=== PATIENT | male | born 1945 | race Caucasian/White ===

== ENCOUNTER → 2017-04-16 15:59 | Outpatient (REF) | payer MEDICARE, OTHER, SELFPAY ==
[2017-04-16 16:12] LABS: Basophils % 0.2 % (0.1-2.0); Eosinophils % 0.2 % (0.1-12.0); Hematocrit 52.4 % (42.0-52.0); Hemoglobin 17.6 g/dL (14.1-18.0); Lymphocytes # 0.9 K/mm3 (0.7-4.5); Mean Corpuscular HGB Conc 33.6 g/dL (31.8-35.4); Mean Corpuscular Volume 92.1 fl (80-94); Mean Platelet Volume 9.4 fl (7.4-10.4); Monocytes # 0.5 K/mm3 (0.1-1.0); Monocytes % 3.6 % (1.7-9.3); Neutrophils # 12.9 K/mm3 (1.8-7.8); Platelet Count 188 K/mm3 (142-424); Red Blood Count 5.68 M/mm3 (4.60-6.20); Red Cell Distribution Width 12.8 % (11.5-17.5); White Blood Count 14.4 K/mm3 (4.8-10.8)
[2017-04-16 16:15] LABS: MANUAL DIFFERENTIAL MANUAL DIFFERENTIAL (MANUAL DIFF)
[2017-04-16 17:34] LABS: Erythrocyte Sedimentation Rate 3 mm/hr (0-20)
[2017-04-16 18:01] LABS: Lymphocytes % 5 % (10-50); Monocytes % 2 % (2-9); Neutrophils % 91 % (42-76); Platelet Estimate Normal; Total Cells Counted 100
[2017-04-16 18:02] LABS: RBC Morphology Normal
[2017-04-16 18:35] LABS: Alanine Aminotransferase 66 U/L (12-78); Albumin Level 4.3 gm/dL (3.4-5.0); Albumin/Globulin Ratio 1.2 (1.1-1.8); Alkaline Phosphatase 63 U/L (46-116); Anion Gap 19.6 mEq/L (5-15); Aspartate Amino Transferase 36 U/L (15-37); Bilirubin,Total 0.8 mg/dL (0.2-1.0); Blood Urea Nitrogen 24 mg/dL (7-18); Calcium 9.6 mg/dL (8.5-10.1); Carbon Dioxide 23 mmol/L (21.0-32.0); Chloride 103 mmol/L (98-107); Creatinine,Serum 1.33 mg/dL (0.70-1.30); Estimated Glomerular Filt Rate 53 ml/min (>60); GFR (African American) 64 ML/MIN (>60); Globulin 3.5 gm/dl (1.3-3.2); Glucose 192 mg/dL (74-106); Potassium 4.6 mmoL/L (3.5-5.1); Sodium 141 mmol/L (136-145); Total Protein,Serum 7.8 gm/dL (6.4-8.2)
[2017-04-18 12:35] LABS: Folate >20.0 ng/mL (>3.0); Vitamin B12 750 pg/mL (232-1245)
== END ==
LOC: LAB 15:59
PROVIDERS: Visit Provider Internal Medicine
DX: G31.84 Mild cognitive impairment of uncertain or unknown etiology (principal); M54.2 Cervicalgia; H83.09 Labyrinthitis, unspecified ear
CPT/HCPCS: 80053; 82607; 82746; 84443; 85007; 85025; 85651

== ENCOUNTER → 2017-04-18 13:12 | Outpatient (CLI) | payer MEDICARE, OTHER, SELFPAY ==
--- NOTE | 2017-04-18 13:18 | MR_ITS ---
MR head/brain wo/w con HISTORY: Headaches, vertigo, memory loss ITS.REASON: VERTIGO, HEADACHES, MEMORY LOSS ORDERING PHYSICIAN: Addy Lara PATIENT AGE: 71 years COMPARISON: None TECHNIQUE: Standard multiplanar multiecho sequences are performed without and with gadolinium enhancement contrast.. Thin section pre and post coronal and axial T1-weighted images are also obtained for evaluation of the acoustic foramina FINDINGS: No midline shift or mass effect is evident. There is mild atrophy with scattered periventricular and subcortical T2 white matter hyperintensities likely related to ischemic gliotic change from microvascular disease. No enhancing lesions are apparent. No evidence of acute infarction. The cerebellopontine angles have an unremarkable appearance. No mass or enhancing lesion is evident. The nerve VII and VIII complexes are unremarkable. No mastoid effusion or sinus air-fluid level. IMPRESSION: 1. No acute intracranial findings. 2. No evidence of cerebellopontine angle mass. 3. Senescent changes with atrophy and chronic right hepatic gliotic change IMPRESSION:
--- NOTE | 2017-04-18 14:50 | HMH.ITSHM ---
LISINOPRIL 40MG AMLODIPINE 10MG MELOXICAM 15MG ALENDRONATE 40MG SPIRONOLACTONE 25MG
== END ==
PROVIDERS: PCP Internal Medicine; Visit Provider Internal Medicine
DX: R42 Dizziness and giddiness (principal); R51 Headache; R41.3 Other amnesia
CPT/HCPCS: 70553; A9576

== ENCOUNTER → 2017-07-15 10:24 | Outpatient (CLI) | payer MEDICARE, OTHER, SELFPAY ==
[2017-07-15 10:46] LABS: Basophils % 0.5 % (0.1-2.0); Eosinophils # 0.1 K/mm3 (0.0-0.4); Eosinophils % 1.1 % (0.1-12.0); Hematocrit 48.6 % (42.0-52.0); Hemoglobin 16.1 g/dL (14.1-18.0); Lymphocytes % 22.5 K/mm3 (10-50); Mean Corpuscular HGB Conc 33.1 g/dL (31.8-35.4); Mean Corpuscular Hemoglobin 31.4 pg (27.0-31.2); Mean Corpuscular Volume 94.9 fl (80-94); Mean Platelet Volume 8.3 fl (7.4-10.4); Monocytes # 0.8 K/mm3 (0.1-1.0); Monocytes % 8.5 % (1.7-9.3); Neutrophils % 67.3 % (37.0-80.0); Platelet Count 180 K/mm3 (142-424); Red Blood Count 5.12 M/mm3 (4.60-6.20); Red Cell Distribution Width 12.7 % (11.5-17.5); White Blood Count 8.9 K/mm3 (4.8-10.8)
[2017-07-15 11:29] LABS: Alanine Aminotransferase 27 U/L (12-78); Albumin Level 4.1 gm/dL (3.4-5.0); Albumin/Globulin Ratio 1.2 (1.1-1.8); Alkaline Phosphatase 49 U/L (46-116); Anion Gap 10.6 mEq/L (5-15); Aspartate Amino Transferase 16 U/L (15-37); Bilirubin,Total 0.6 mg/dL (0.2-1.0); Blood Urea Nitrogen 30 mg/dL (7-18); Calcium 9.7 mg/dL (8.5-10.1); Carbon Dioxide 29 mmol/L (21.0-32.0); Chloride 108 mmol/L (98-107); Estimated Glomerular Filt Rate 65 ml/min (>60); GFR (African American) 79 ML/MIN (>60); Globulin 3.5 gm/dl (1.3-3.2); Glucose 123 mg/dL (74-106); Phosphorous 3.1 mg/dL (2.4-4.9); Potassium 4.6 mmoL/L (3.5-5.1); Sodium 143 mmol/L (136-145); Total Protein,Serum 7.6 gm/dL (6.4-8.2)
== END ==
PROVIDERS: Visit Provider Internal Medicine
DX: M43.22 Fusion of spine, cervical region (principal); I10 Essential (primary) hypertension; D75.1 Secondary polycythemia
CPT/HCPCS: 36415; 80053; 84100; 85025

== ENCOUNTER 2017-08-21 15:15 | Outpatient (RCR) | payer MEDICARE, OTHER, SELFPAY | END 2017-08-21 15:16 | disposition home or self-care (01) | LOC: PT 15:15 | PROVIDERS: PCP Internal Medicine; Visit Provider Orthopaedic Surgery | DX: S52.532S Colles' fracture of left radius, sequela (principal) ==

== ENCOUNTER → 2017-08-23 11:08 | Outpatient (CLI) | payer MEDICARE, OTHER, SELFPAY ==
[2017-08-23 11:41] LABS: Basophils # 0.1 K/mm3 (0-0.2); Eosinophils # 0.2 K/mm3 (0.0-0.4); Eosinophils % 2.4 % (0.1-12.0); Lymphocytes % 22.2 K/mm3 (10-50); Mean Corpuscular Hemoglobin 30.6 pg (27.0-31.2); Mean Corpuscular Volume 95.6 fl (80-94); Monocytes # 0.9 K/mm3 (0.1-1.0); Neutrophils # 5.8 K/mm3 (1.8-7.8); Neutrophils % 64.4 % (37.0-80.0); Platelet Count 195 K/mm3 (142-424); Red Blood Count 5.23 M/mm3 (4.60-6.20); Red Cell Distribution Width 12.8 % (11.5-17.5); White Blood Count 9.1 K/mm3 (4.8-10.8)
[2017-08-23 11:50] LABS: Anion Gap 15.2 mEq/L (5-15); Blood Urea Nitrogen 44 mg/dL (7-18); Calcium 9.6 mg/dL (8.5-10.1); Carbon Dioxide 25 mmol/L (21.0-32.0); Chloride 103 mmol/L (98-107); Creatinine,Serum 1.79 mg/dL (0.70-1.30); Estimated Glomerular Filt Rate 37 ml/min (>60); GFR (African American) 45 ML/MIN (>60); Glucose 109 mg/dL (74-106); Potassium 5.2 mmoL/L (3.5-5.1); Sodium 138 mmol/L (136-145)
== END ==
PROVIDERS: Visit Provider Orthopaedic Surgery
DX: Z01.818 Encounter for other preprocedural examination (principal); S52.532S Colles' fracture of left radius, sequela
CPT/HCPCS: 36415; 80048; 85025; 93005

== ENCOUNTER → 2017-09-09 09:11 | Outpatient (CLI) | payer MEDICARE, OTHER, SELFPAY ==
--- NOTE | 2017-09-09 09:21 | XR_ITS ---
XR wrist LT min 3V HISTORY follow-up ORIF left wrist ITS.REASON: 2 weeks post op LT wrist ORDERING PHYSICIAN: Karan Rendon MD PATIENT AGE: 72 years Comparison: 08/26/2017 FINDINGS: External fixator device remains in place with good alignment of the comminuted distal radial fracture and ulnar styloid process fracture. The fracture lines are somewhat less apparent suggesting healing. Incidental note made of a small cortical curvilinear fracture at the insertion site of the external fixator at the mid to distal radial region along the ulnar aspect of the cortex. IMPRESSION: Healing Colles' fracture status post external fixation
== END ==
PROVIDERS: PCP Internal Medicine; Visit Provider Orthopaedic Surgery
DX: Z47.89 Encounter for other orthopedic aftercare (principal); S52.532A Colles' fracture of left radius, initial encounter for closed fracture; S62.102A Fracture of unspecified carpal bone, left wrist, initial encounter for closed fracture
CPT/HCPCS: 73110

== ENCOUNTER → 2017-09-24 12:38 | Outpatient (CLI) | payer MEDICARE, OTHER, SELFPAY ==
--- NOTE | 2017-09-24 12:41 | XR_ITS ---
XR wrist LT min 3V HISTORY: ITS.REASON: 4 wks post op LT wrist closed reduction/ext. fixat ORDERING PHYSICIAN: Karan Rendon MD PATIENT AGE: 72 years COMPARISON: Left wrist with external fixator device in place 09/09/2017 FINDINGS: The external fixator device is again seen stabilizing the distal radial fracture. There is stable volar angulation of the distal radial fracture fragment. The unfused ulnar styloid fracture fragment is stable and unchanged in position. The carpal bones all appear intact. IMPRESSION: External fixation Colles' type fracture distal radius and ulnar styloid
== END ==
PROVIDERS: PCP Internal Medicine; Visit Provider Orthopaedic Surgery
DX: S52.532A Colles' fracture of left radius, initial encounter for closed fracture (principal); S62.102A Fracture of unspecified carpal bone, left wrist, initial encounter for closed fracture
CPT/HCPCS: 73110

== ENCOUNTER → 2017-10-08 13:57 | Outpatient (CLI) | payer MEDICARE, OTHER, SELFPAY ==
--- NOTE | 2017-10-08 14:00 | XR_ITS ---
XR wrist LT min 3V HISTORY follow-up fracture ITS.REASON: S/P LT WRIST CLOSED REDUC. EXTERNAL FIXATION ORDERING PHYSICIAN: Karan Rendon MD PATIENT AGE: 72 years Comparison: 09/24/2017 FINDINGS: External fixator device remains in place unchanged. The distal radial fracture line is somewhat less apparent suggesting healing. There remains good alignment with no significant displacement. No change in the nondisplaced fracture of the ulnar styloid process. IMPRESSION: External fixator remains in place with healing distal radial fracture and no change in the ulnar styloid process fracture
== END ==
PROVIDERS: PCP Internal Medicine; Visit Provider Orthopaedic Surgery
DX: Z47.89 Encounter for other orthopedic aftercare (principal)
CPT/HCPCS: 73110

== ENCOUNTER → 2017-10-21 10:08 | Outpatient (CLI) | payer MEDICARE, OTHER, SELFPAY ==
[2017-10-21 10:53] LABS: Alanine Aminotransferase 24 U/L (12-78); Albumin Level 4.2 gm/dL (3.4-5.0); Albumin/Globulin Ratio 1.3 (1.1-1.8); Alkaline Phosphatase 57 U/L (46-116); Anion Gap 12.7 mEq/L (5-15); Aspartate Amino Transferase 13 U/L (15-37); Bilirubin,Total 0.3 mg/dL (0.2-1.0); Blood Urea Nitrogen 48 mg/dL (7-18); Calcium 9.5 mg/dL (8.5-10.1); Carbon Dioxide 27 mmol/L (21.0-32.0); Chloride 110 mmol/L (98-107); Creatinine,Serum 1.98 mg/dL (0.70-1.30); Estimated Glomerular Filt Rate 33 ml/min (>60); GFR (African American) 40 ML/MIN (>60); Globulin 3.3 gm/dl (1.3-3.2); Glucose 86 mg/dL (74-106); Potassium 5.7 mmoL/L (3.5-5.1); Sodium 144 mmol/L (136-145); Total Protein,Serum 7.5 gm/dL (6.4-8.2)
[2017-10-22 16:06] LABS: Folate >20.0 ng/mL (>3.0); Rapid Plasma Reagin Ab Titer Non Reactive (NonRea<1:1); Vitamin B12 900 pg/mL (232-1245)
== END ==
PROVIDERS: PCP Internal Medicine; Visit Provider Specialist
DX: G93.40 Encephalopathy, unspecified (principal); R42 Dizziness and giddiness; R41.3 Other amnesia; M88.9 Osteitis deformans of unspecified bone; F03.90 Unspecified dementia, unspecified severity, without behavioral disturbance, psychotic disturbance, mood disturbance, and anxiety
CPT/HCPCS: 36415; 80053; 82607; 82746; 86592

== ENCOUNTER → 2017-10-24 09:29 | Outpatient (CLI) | payer MEDICARE, OTHER, SELFPAY ==
--- NOTE | 2017-10-24 10:15 | CI_ITS ---
Cerebrovascular Exam Indications: 780.4 Dizziness and giddiness. IMPRESSIONS 1. The bilateral vertebral arteries are patent with normal antegrade flow. 2. Study suggests less than 20% stenosis involving the right internal carotid artery and the left internal carotid artery. History: Memory loss. Risk factors: Hypertension. Carotid duplex study. Complete study and Doppler flow study including spectral analysis, color and reyna scale imaging. Height: Height: 185.4cm. Height: 73in. Weight: Weight: 86.6kg. Weight: 190.6lb. Body mass index: BMI: 25.2kg/m^2. Body surface area: BSA: 2.12m^2. Location: Vascular laboratory. Patient status: Outpatient. Tables: Arterial flow: + +--------+--------+ Location V sys V ed + +--------+--------+ Right CCA - proximal 73.1cm/s 18.1cm/s + +--------+--------+ Right CCA - distal 66cm/s 20.4cm/s + +--------+--------+ Right ECA 75.4cm/s -------- + +--------+--------+ Right ICA - proximal 34.9cm/s 9.8cm/s + +--------+--------+ Right ICA - mid 44.2cm/s 16.2cm/s + +--------+--------+ Right ICA - distal 65.8cm/s 24.6cm/s + +--------+--------+ Right vertebral 33.4cm/s -------- + +--------+--------+ Left CCA - proximal 68.8cm/s 18.7cm/s + +--------+--------+ Left CCA - distal 60.9cm/s 15.2cm/s + +--------+--------+ Left ECA 77.6cm/s -------- + +--------+--------+ Left ICA - proximal 43.2cm/s 16.7cm/s + +--------+--------+ Left ICA - mid 45.2cm/s 16.7cm/s + +--------+--------+ Left ICA - distal 55.5cm/s 19.6cm/s + +--------+--------+ Left vertebral 33.9cm/s -------- + +--------+--------+ Velocity ratios: + + + + + + Right, V sys Right, V ed Left, V sys Left, V ed + + + + + + Max ICA/dist CCA 1 1.21 0.91 1.29 + + + + + + (Report amended ) Electronically signed by: Montana Dyer [id number]
== END ==
PROVIDERS: PCP Internal Medicine; Visit Provider Specialist
DX: R42 Dizziness and giddiness (principal); R41.3 Other amnesia; G93.40 Encephalopathy, unspecified
CPT/HCPCS: 93880

== ENCOUNTER → 2017-11-07 12:52 | Outpatient (CLI) | payer MEDICARE, OTHER, SELFPAY ==
--- NOTE | 2017-11-07 12:56 | XR_ITS ---
XR wrist LT min 3V HISTORY follow-up fracture/closed reduction ITS.REASON: S/P LT wrist closed reduction/external fixation ORDERING PHYSICIAN: Karan Rendon MD PATIENT AGE: 72 years Comparison: 10/08/2017 FINDINGS: The external fixator has been removed. Healing fracture of the distal radius once again noted with good alignment. Lucencies from the external fixator noted in the radius and second metacarpal. Ununited ulnar styloid process fracture noted. IMPRESSION: Interval removal of the external fixator with healing distal radial fracture
== END ==
PROVIDERS: PCP Internal Medicine; Visit Provider Orthopaedic Surgery
DX: S52.532A Colles' fracture of left radius, initial encounter for closed fracture (principal)
CPT/HCPCS: 73110

== ENCOUNTER 2017-11-08 10:00 | Outpatient (RCR) | payer MEDICARE, OTHER, SELFPAY | END 2017-11-08 10:01 | disposition home or self-care (01) | LOC: PT 10:00 | PROVIDERS: PCP Internal Medicine; Visit Provider Specialist | DX: R42 Dizziness and giddiness (principal) | CPT/HCPCS: 97010; 97014; 97110; 97112; 97163; G0283 ==

== ENCOUNTER 2017-11-08 11:00 | Outpatient (RCR) | payer MEDICARE, OTHER, SELFPAY ==
--- NOTE | 2017-10-25 10:49 | HMH.OTOPEV ---
OT Inpatient Evaluation Rehab OT Outpatient Eval Start: 10/25/17 10:33 Freq: Status: Active Protocol: Document 10/25/17 10:34 TFRY (Rec: 10/25/17 10:48 TFRY [id number]) Electronically Signed By Jennifer Wylie, OT 10/25/17 10:34 Outpatient Therapy Subjective History Subjective History THIS IS A 72 YEAR OLD RIGHT HANDED MALE REFERRED TO OCCUPATIONAL THERAPY PATIENT IS S/P LEFT WRIST CLOSED REDUCTION, PINNING EXTERNAL FIXATOR. PATIENT STATES THAT HE FELL BACKWARDS ON August AND BROKE HIS WRIST. Chief Complaint Pain Stiff Symptom Type Ache Sharp Symptoms Relieved By Rest/Positioning Prescription Meds Symptoms Aggravated By Physical Activity Prior Functional Limitations None Current Functional Limitations Dressing Symptom Description Activity Dependent Level of pain today (0-10) 3 Pain scale - at its best (0-10) 1 Pain scale - at its worst (0-10) 6 Wrist/Hand Eval Palpation Tenderness/Visual Exam Wrist pain left tenderness wrist exam standard left Wrist/Hand Palpation Findings Tenderness Wrist Range of Motion Wrist Extension Active Range of Motion ( 32 degrees) Wrist Extension Passive Range of Motion 50 (degrees) Wrist Flexion Active Range of Motion ( 45 degrees) Wrist Flexion Passive Range of Motion ( 50 degrees) Wrist Radial Deviation Active Range of 20 Motion (degrees) Wrist Radial Deviation Passive Range of 20 Motion (degrees) Wrist Ulnar Deviation Active Range of 20 Motion (degrees) Wrist Ulnar Deviation Passive Range of 20 Motion (degrees) Forearm Supination Active Range of 30 Motion (degrees) Forearm Supination Passive Range of 35 Motion (degrees) Forearm Pronation Active Range of Motion WFL (degrees) Forearm Pronation Passive Range of WFL Motion (degrees) Wrist Manual Muscle Testing Right Wrist Extension Strength Grade 3+ Fair+ Wrist Flexion Strength Grade 3+ Fair+ Wrist Radial Deviation Strength Grade 3+ Fair+ Wrist Ulnar Deviation Strength Grade 3+ Fair+ Forearm Supination Strength Grade 3+ Fair+ Forearm Pronation Strength Grade 3+ Fair+ 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
== END 2017-11-08 11:05 | disposition home or self-care (01) ==
LOC: OT 11:00
PROVIDERS: PCP Internal Medicine; Visit Provider Orthopaedic Surgery
DX: S52.532A Colles' fracture of left radius, initial encounter for closed fracture (principal)
CPT/HCPCS: 97110; 97140; 97165

== ENCOUNTER → 2017-12-02 09:32 | Outpatient (CLI) | payer MEDICARE, OTHER, SELFPAY | PROVIDERS: PCP Internal Medicine; Visit Provider Specialist | DX: R41.3 Other amnesia (principal); G93.40 Encephalopathy, unspecified; R42 Dizziness and giddiness | CPT/HCPCS: 95819 ==

== ENCOUNTER → 2017-12-11 15:11 | Outpatient (CLI) | payer MEDICARE, OTHER, SELFPAY ==
[2017-12-11 15:31] LABS: Anion Gap 14.3 mEq/L (5-15); Blood Urea Nitrogen 56 mg/dL (7-18); Calcium 9.5 mg/dL (8.5-10.1); Carbon Dioxide 24 mmol/L (21.0-32.0); Chloride 107 mmol/L (98-107); Creatinine,Serum 1.83 mg/dL (0.70-1.30); Estimated Glomerular Filt Rate 36 ml/min (>60); GFR (African American) 44 ML/MIN (>60); Glucose 98 mg/dL (74-106); Potassium 5.3 mmoL/L (3.5-5.1); Sodium 140 mmol/L (136-145)
== END ==
PROVIDERS: PCP Internal Medicine; Visit Provider Internal Medicine
DX: I10 Essential (primary) hypertension (principal); E87.5 Hyperkalemia; R94.4 Abnormal results of kidney function studies
CPT/HCPCS: 36415; 80048

== ENCOUNTER → 2017-12-13 13:06 | Outpatient (CLI) | payer MEDICARE, OTHER, SELFPAY ==
--- NOTE | 2017-12-13 13:07 | MR_ITS ---
MR angio head wo con CLINICAL INDICATION: Vertigo, dizziness, headache ITS.REASON: pagets disease, encephalopathy, vertigo ORDERING PHYSICIAN: Hannah Peralta MD PATIENT AGE: 72 years Comparison: None TECHNIQUE: [id number] images obtained without contrast. FINDINGS: No aneurysm, arteriovenous malformation, or major intracranial occlusive process evident. IMPRESSION: Negative MRA of the brain
--- NOTE | 2017-12-13 13:07 | MR_ITS ---
MR cervical spine wo con, MR 3-d myelogram/MRCP HISTORY: Pagents disease. RT sided neck pain XRYS. Headache. Padgets disease ITS.REASON: evaluation for myelopathy ORDERING PHYSICIAN: Hannah Peralta MD PATIENT AGE: 72 years Comparison: X-RAY 08-28-2011 ct 05/14/2016 TECHNIQUE: Standard multiplanar multiecho sequences are performed without contrast. 3-D MIP and myelographic images are also rendered and reviewed FINDINGS: The patient has history of Padgets disease. There is fusion of the C5-T1 vertebral bodies. This is well demonstrated on older CT neck of 05/14/2016. There is kyphosis of the cervicothoracic junction. There is diffuse heterogeneous T1 and T2 slight hyperintensity of C5-T1 vertebral bodies with scattered areas of decreased signal intensity consistent with diffuse osteosclerosis as seen on the CT scan. This also involves the posterior elements. This would be better demonstrated with CT. No obvious bony hypertrophy at the craniocervical junction. C2-C3: Mild concentric bulging disc with mild right-sided foraminal narrowing from mild uncovertebral hypertrophy. C3-C4: Concentric bulging disc with endplate osteophytes as well as hypertrophic changes of the posterior elements at the lamina also with resultant severe canal stenosis of 6 mm. There is impingement upon the cord both anteriorly and posteriorly with mild flattening of the cord. There is increased linear T2 signal within the cord at and above this level for approximately 1 cm and may be due to an area of gliosis. There is moderate severe bilateral foraminal narrowing. C4-C5: Bulging disc with endplate hypertrophic change with degenerative disc disease with hypertrophy of posterior elements. There is canal stenosis at this level at 10 mm. There is severe bilateral foraminal narrowing right greater than left. C5 C6, C6-C7, C7-T1: Diffuse heterogeneous T1 and T2 signal consistent with diffuse involvement of patchy disease with bony hypertrophy and bony expansion with bilateral foraminal narrowing at all levels. Consider CT for more thorough evaluation of the bony involvement. Generalized motion artifact is also present at this region. IMPRESSION: 1. 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 Consider CT for more thorough evaluation. 2. C3-C4: Concentric bulging disc with endplate osteophytes as well as hypertrophic changes of the posterior elements at the lamina also with resultant SEVERE CANAL STENOSIS of 6 mm. There is impingement upon the cord both anteriorly and posteriorly with mild flattening of the cord. There is increased linear T2 signal within the cord at and above this level for approximately 1 cm and may be due to an area of gliosis. There is moderate/ severe bilateral foraminal narrowing. 3. C4-C5: Bulging disc with endplate hypertrophic change with degenerative disc disease with hypertrophy of posterior elements. There is canal stenosis at this level at 10 mm. There is severe bilateral foraminal narrowing right greater than left
== END ==
PROVIDERS: PCP Internal Medicine; Visit Provider Specialist
DX: G93.40 Encephalopathy, unspecified (principal); M88.9 Osteitis deformans of unspecified bone; R41.3 Other amnesia; R42 Dizziness and giddiness
CPT/HCPCS: 70544; 72141; 76376

== ENCOUNTER → 2017-12-17 12:33 | Outpatient (CLI) | payer MEDICARE, OTHER, SELFPAY ==
--- NOTE | 2017-12-17 12:44 | US_ITS ---
US kidney retroperitoneal comp HISTORY: ITS.REASON: RENAL INSUFFICIENCY ORDERING PHYSICIAN: Addy Lara PATIENT AGE: 72 years FINDINGS: RIGHT KIDNEY:Unremarkable. Normal size and echogenicity. No hydronephrosis Right kidney measures 10.5 x 5.2 x 6.3 cm LEFT KIDNEY:Unremarkable. No hydronephrosis. Normal size and echogenicity. Left kidney measures 10 x 5 x 6 cm and contains a 1 cm cyst along the upper pole. OTHER FINDINGS: No other pertinent findings IMPRESSION: 1 cm left renal cyst otherwise negative bilateral renal ultrasound
== END ==
PROVIDERS: PCP Internal Medicine; Visit Provider Internal Medicine
DX: N28.9 Disorder of kidney and ureter, unspecified (principal)
CPT/HCPCS: 76770

== ENCOUNTER → 2017-12-20 13:34 | Outpatient (CLI) | payer MEDICARE, OTHER, SELFPAY ==
[2017-12-20 14:26] LABS: Anion Gap 10.9 mEq/L (5-15); Blood Urea Nitrogen 30 mg/dL (7-18); Carbon Dioxide 27 mmol/L (21.0-32.0); Chloride 107 mmol/L (98-107); Creatinine,Serum 1.21 mg/dL (0.70-1.30); Estimated Glomerular Filt Rate 59 ml/min (>60); GFR (African American) 71 ML/MIN (>60); Glucose 101 mg/dL (74-106); Potassium 4.9 mmoL/L (3.5-5.1); Sodium 140 mmol/L (136-145)
[2017-12-20 14:26] LABS: Creatinine,Serum 1.26 mg/dL (0.70-1.30)
[2017-12-20 14:30] LABS: Total Protein,Urine Random 6.6 mg/dL (0.0-11.9)
[2017-12-20 14:32] LABS: Total Protein 24 Hour,Urine 86 mg/24 hr (40-90); Total Volume,Urine 1300 mL (250-2400)
[2017-12-20 14:39] LABS: Creatinine,Urine Random 87 mg/dL (20-320); Patient Height,Urine 74 inches; Patient Weight,Urine 194 lbs
[2017-12-20 14:51] LABS: Collection Time,Urine 24 hours; Creatinine 24 Hour,Urine 1131 mg/24hr (630-2500); Creatinine Clearance Urine 50.4 mL/min (85-125); Total Volume,Urine 1300 mL (250-2400)
== END ==
PROVIDERS: PCP Internal Medicine; Visit Provider Internal Medicine
DX: E87.5 Hyperkalemia (principal); R94.4 Abnormal results of kidney function studies; N28.9 Disorder of kidney and ureter, unspecified
CPT/HCPCS: 36415; 80048; 82575; 84155

== ENCOUNTER → 2018-01-14 09:33 | Outpatient (CLI) | payer MEDICARE, OTHER, SELFPAY ==
[2018-01-14 10:37] LABS: Hematocrit 46.8 % (42.0-52.0)
[2018-01-14 11:51] LABS: Thyroid Stimulating Hormone 2.34 uIU/ml (0.358-3.740)
[2018-01-14 11:51] LABS: Alanine Aminotransferase 49 U/L (12-78); Albumin Level 3.8 gm/dL (3.4-5.0); Alkaline Phosphatase 60 U/L (46-116); Anion Gap 13.4 mEq/L (5-15); Aspartate Amino Transferase 16 U/L (15-37); Bilirubin,Total 0.5 mg/dL (0.2-1.0); Blood Urea Nitrogen 31 mg/dL (7-18); Calcium 9.1 mg/dL (8.5-10.1); Carbon Dioxide 28 mmol/L (21.0-32.0); Chloride 106 mmol/L (98-107); Creatinine,Serum 1.25 mg/dL (0.70-1.30); Estimated Glomerular Filt Rate 56 ml/min (>60); GFR (African American) 68 ML/MIN (>60); Globulin 3.7 gm/dl (1.3-3.2); Glucose 96 mg/dL (74-106); Phosphorous 3.7 mg/dL (2.4-4.9); Potassium 4.4 mmoL/L (3.5-5.1); Prostate Specific Ag Screen 2.8 ng/mL (0.0-4.0); Sodium 143 mmol/L (136-145); Total Protein,Serum 7.5 gm/dL (6.4-8.2)
== END ==
PROVIDERS: Internal Medicine; Visit Provider Specialist
DX: G93.40 Encephalopathy, unspecified (principal); M47.12 Other spondylosis with myelopathy, cervical region; M47.22 Other spondylosis with radiculopathy, cervical region; M88.9 Osteitis deformans of unspecified bone; R41.3 Other amnesia; N28.9 Disorder of kidney and ureter, unspecified; Z12.5 Encounter for screening for malignant neoplasm of prostate
CPT/HCPCS: 36415; 80053; 84100; 84443; 85014; G0103

== ENCOUNTER → 2018-01-14 09:47 | Outpatient (POV) | payer MEDICARE, OTHER, SELFPAY | PROVIDERS: Visit Provider Otolaryngology | DX: Z00.00 Encounter for general adult medical examination without abnormal findings (principal) ==

== ENCOUNTER → 2018-01-15 13:16 | Outpatient (CLI) | payer MEDICARE, OTHER, SELFPAY ==
--- NOTE | 2018-01-15 13:17 | CT_ITS ---
CT CERVICAL SPINE WITHOUT CONTRAST CT RECONSTRUCTIONS HISTORY:Neck pain, Paget disease ORDERING PHYSICIAN: Hannah Peralta MD PATIENT AGE: 72 years COMPARISON: 05/14/2016 Technique: All CT scans at the facility use one or more dose reduction, viz: automated exposure control, ma/kV adjustment per patient size (including targeted exams where dose is matched to indication, i.e. head), or iterative reconstruction technique PROCEDURE: Axial spiral CT scanning performed of the cervical spine beginning at the base of the skull and continuing to the upper T-spine. 3-D multiplanar reconstruction with 3-D manipulation of volumetric data set in image rendering was completed by the radiologist and/or technologist with the supervision of the radiologist on independent workstation. FINDINGS: C1-C2: Unremarkable. C2-C3: Degenerative disc disease with minimal retrolisthesis of C2 of 2 to 3 mm with mild bilateral foraminal narrowing. C3-C4: Degenerative disc disease with facet and ligamentum flavum hypertrophy and moderate bilateral foraminal narrowing. Previous MRI showed canal stenosis at C3-C4 and C4-C5. This is better demonstrated on the MRI. C4-C5 C5-C6 and C6-C7 and C7-T1 coarse irregular walled in appearance of the bone throughout these levels within irregular osseous pattern as described previously on 05/14/2016 not significantly changed and could be due to fibrous dysplasia or active disease. There is kyphosis of the cervicothoracic junction similar to the previous exam. The foramina are widely patent at these areas without evidence of canal stenosis. There is fusion of the vertebral bodies from see 5 to T1. Degenerative disc disease T1-T2. No acute finding in the lung apices. No prevertebral soft tissue swelling evident. The uvula is somewhat prominent and slightly eccentric toward the left. IMPRESSION: 1. Abnormal appearance of the cervical spine C5 through T1 as described above which may be due to a Paget disease or fibrous dysplasia. 2. Cervical spondylosis of the upper cervical spine as detailed above
== END ==
PROVIDERS: PCP Specialist; Visit Provider Specialist
DX: G93.40 Encephalopathy, unspecified (principal); M47.12 Other spondylosis with myelopathy, cervical region; M47.22 Other spondylosis with radiculopathy, cervical region; M88.9 Osteitis deformans of unspecified bone
CPT/HCPCS: 72125

== ENCOUNTER → 2018-01-20 12:52 | Outpatient (CLI) | payer MEDICARE, OTHER, SELFPAY | PROVIDERS: PCP Internal Medicine; Visit Provider Internal Medicine | DX: G47.30 Sleep apnea, unspecified (principal); G47.10 Hypersomnia, unspecified; R06.83 Snoring; I10 Essential (primary) hypertension; E66.9 Obesity, unspecified | CPT/HCPCS: G0399 ==

== ENCOUNTER → 2018-02-27 14:26 | Outpatient (POV) | payer MEDICARE, OTHER, SELFPAY | PROVIDERS: Visit Provider Neurological Surgery | DX: Z00.00 Encounter for general adult medical examination without abnormal findings (principal) ==

== ENCOUNTER 2018-04-04 14:00 | Outpatient (RCR) | payer MEDICARE, OTHER, SELFPAY | END 2018-04-04 14:05 | disposition home or self-care (01) | LOC: PT 14:00 | PROVIDERS: Visit Provider Neurological Surgery | DX: M54.2 Cervicalgia (principal); M25.511 Pain in right shoulder | CPT/HCPCS: 97010; 97012; 97014; 97035; 97110; 97140; 97163; G0283 ==

== ENCOUNTER → 2018-04-16 09:46 | Outpatient (CLI) | payer MEDICARE, OTHER, SELFPAY ==
[2018-04-16 10:24] LABS: Basophils # 0.1 K/mm3 (0-0.2); Basophils % 0.8 % (0.1-2.0); Eosinophils # 0.2 K/mm3 (0.0-0.4); Eosinophils % 3.1 % (0.1-12.0); Hematocrit 47.3 % (42.0-52.0); Lymphocytes # 2.2 K/mm3 (0.7-4.5); Lymphocytes % 33.5 % (10-50); Mean Corpuscular HGB Conc 31.6 g/dL (31.8-35.4); Mean Corpuscular Hemoglobin 29.6 pg (27.0-31.2); Mean Corpuscular Volume 93.6 fl (80-94); Mean Platelet Volume 9.4 fl (7.4-10.4); Monocytes # 0.6 K/mm3 (0.1-1.0); Monocytes % 8.8 % (1.7-9.3); Neutrophils # 3.6 K/mm3 (1.8-7.8); Neutrophils % 53.7 % (37.0-80.0); Platelet Count 165 K/mm3 (142-424); Red Blood Count 5.06 M/mm3 (4.60-6.20); Red Cell Distribution Width 13.8 % (11.5-17.5); White Blood Count 6.7 K/mm3 (4.8-10.8)
[2018-04-16 10:53] LABS: Alanine Aminotransferase 38 U/L (12-78); Albumin Level 4.2 gm/dL (3.4-5.0); Albumin/Globulin Ratio 1.2 (1.1-1.8); Alkaline Phosphatase 54 U/L (46-116); Aspartate Amino Transferase 18 U/L (15-37); Bilirubin,Total 0.6 mg/dL (0.2-1.0); Blood Urea Nitrogen 34 mg/dL (7-18); Calcium 9.5 mg/dL (8.5-10.1); Carbon Dioxide 28 mmol/L (21.0-32.0); Chloride 103 mmol/L (98-107); Creatinine,Serum 1.46 mg/dL (0.70-1.30); Estimated Glomerular Filt Rate 47 ml/min (>60); GFR (African American) 57 ML/MIN (>60); Globulin 3.6 gm/dl (1.3-3.2); Glucose 114 mg/dL (74-106); Phosphorous 3.8 mg/dL (2.4-4.9); Sodium 141 mmol/L (136-145); Total Protein,Serum 7.8 gm/dL (6.4-8.2)
== END ==
PROVIDERS: Visit Provider Internal Medicine
DX: I10 Essential (primary) hypertension (principal); M54.2 Cervicalgia; M88.1 Osteitis deformans of vertebrae; M15.0 Primary generalized (osteo)arthritis; D75.1 Secondary polycythemia; D69.6 Thrombocytopenia, unspecified
CPT/HCPCS: 36415; 80053; 84100; 85025

== ENCOUNTER → 2018-05-27 12:49 | Outpatient (POV) | payer MEDICARE, OTHER, SELFPAY | PROVIDERS: Visit Provider Dermatology | DX: Z00.00 Encounter for general adult medical examination without abnormal findings (principal) ==

== ENCOUNTER → 2018-06-17 13:13 | Outpatient (POV) | payer MEDICARE, OTHER, SELFPAY | PROVIDERS: Visit Provider Dermatology | DX: Z00.00 Encounter for general adult medical examination without abnormal findings (principal) ==

== ENCOUNTER → 2018-06-20 13:47 | Outpatient (CLI) | payer MEDICARE, OTHER, SELFPAY | PROVIDERS: PCP Internal Medicine; Visit Provider Specialist | DX: G47.33 Obstructive sleep apnea (adult) (pediatric) (principal) | CPT/HCPCS: 94762 ==

== ENCOUNTER 2018-07-30 13:00 | Outpatient (RCR) | payer MEDICARE, OTHER, SELFPAY ==
--- NOTE | 2018-06-05 15:28 | HMH.PTOPEV ---
PT Outpatient Evaluation Rehab PT Outpatient Evaluation Start: 06/05/18 15:10 Freq: Status: Active Protocol: Document 06/05/18 15:10 TERRAJOSE (Rec: 06/05/18 15:28 TERRAJOSE [id number]) Electronically Signed By Laith Walker, PT 06/05/18 15:10 Outpatient Therapy Subjective History Subjective History Patient is a 73 year old male presenting to outpatient PT with reports of chronic, severe cervical spine with RUE radicular symptoms to C 6,7,8 dermatomes. Symptoms started approx 20 years ago of insidious onset. Diagnostics indicate fusion of C6,7 and T1 vertebrae. Pt had a previous episode of PT that provided some relief, specifically dry needling and traction. He has continued with his initial HEP. Pt reports neck pain radiates to R upper trap and down lateral aspect of humerus . Pt also report hx of chronic back pain and arthritis. Chief Complaint Pain Spasms Stiff Clicks Paresthesia Weakness Decreased Automatic Paint Sprayer Operator Strength Symptom Type Ache Dull Numbness Tingling Symptoms Relieved By Heat Symptoms Aggravated By Physical Activity Prior Functional Limitations Reaching Lifting Housework Dressing Desk Work/Reading Driving Sleeping Recreation Activity Current Functional Limitations Reaching Lifting Housework Dressing Desk Work/Reading Driving Sleeping Recreation Activity Symptom Description Constant but Variable Level of pain today (0-10) 5 Pain scale - at its best (0-10) 2 Pain scale - at its worst (0-10)
== END 2018-07-30 13:05 | disposition home or self-care (01) ==
LOC: PT 13:00
PROVIDERS: Visit Provider Internal Medicine
DX: M54.2 Cervicalgia (principal)
CPT/HCPCS: 97010; 97012; 97014; 97035; 97110; 97140; 97163; G0283

== ENCOUNTER → 2018-08-06 14:20 | Outpatient (CLI) | payer MEDICARE, OTHER, SELFPAY ==
--- NOTE | 2018-08-06 14:27 | XR_ITS ---
XR shoulder RT min 2V HISTORY: ITS.REASON: RT SHOULDER PAIN ORDERING PHYSICIAN: Addy Lara PATIENT AGE: 73 years Comparison: None FINDINGS: There are mild osteoarthritic changes of the acromioclavicular joint and glenohumeral joint. No acute fracture or dislocation. No lytic or blastic change. There is mild subacromial stenosis. 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
== END ==
PROVIDERS: PCP Internal Medicine; Visit Provider Internal Medicine
DX: M25.511 Pain in right shoulder (principal)
CPT/HCPCS: 73030

== ENCOUNTER → 2018-08-19 14:12 | Outpatient (POV) | payer MEDICARE, OTHER, SELFPAY ==
[2018-08-19 16:30] LABS: Anion Gap 14.3 mEq/L (5-15); Blood Urea Nitrogen 30 mg/dL (7-18); Calcium 9.7 mg/dL (8.5-10.1); Carbon Dioxide 29 mmol/L (21.0-32.0); Chloride 103 mmol/L (98-107); Creatinine,Serum 1.28 mg/dL (0.70-1.30); Estimated Glomerular Filt Rate 55 ml/min (>60); GFR (African American) 66 ML/MIN (>60); Glucose 130 mg/dL (74-106); Magnesium 2.1 mg/dL (1.4-2.2); Potassium 5.3 mmoL/L (3.5-5.1); Sodium 141 mmol/L (136-145)
== END ==
PROVIDERS: Internal Medicine; Visit Provider Dermatology
DX: Z79.899 Other long term (current) drug therapy (principal)
CPT/HCPCS: 36415; 80048; 83735

== ENCOUNTER → 2018-08-21 15:07 | Outpatient (CLI) | payer MEDICARE, OTHER, SELFPAY ==
--- NOTE | 2018-08-21 15:51 | MR_ITS ---
MR shoulder RT wo con HISTORY: Right shoulder pain, limited range of motion. Unable to raise right arm ITS.REASON: RT SHOULDER PAIN, POOR RANGE OF MOTION ORDERING PHYSICIAN: Addy Lara PATIENT AGE: 73 years Comparison: 08/06/2018. TECHNIQUE: Standard multiplanar multiecho sequences are performed without contrast. FINDINGS: The infraspinatus tendon is intact. There is tendinopathy/tendinosis of the supraspinatus tendon with increased T2 signal and thickening. At the posterior aspect of the supraspinatus tendon there does appear to be some retracted fibers at the area of increased T2 signal consistent with a least a partial intrasubstance tear. There is some slight increased T2 signal the humeral head at this region. The supraspinatus muscle is not retracted. There is mild subacromial stenosis with mild impingement upon the supraspinatus tendon with subacromial space measuring 5 mm. The subscapularis and teres minor tendons are intact. No obvious labral tear. Bicipital tendon is in place. There is a small amount of fluid in the subcoracoid region some of which appears loculated. Small amount of fluid is present in the shoulder joint. No fracture or dislocation. Small cystic areas present in the proximal humerus at 4 mm. IMPRESSION: 1. At least a partial tear of the supraspinatus tendon distally and posteriorly some minimal retraction of the tendinous fibers at this region. Cannot exclude possibility of a full-thickness tear at this area. A complete tear with muscle retraction is not apparent. 2. Mild subacromial stenosis. 3. Subcoracoid bursitis
== END ==
PROVIDERS: PCP Internal Medicine; Visit Provider Internal Medicine
DX: M25.511 Pain in right shoulder (principal); M25.611 Stiffness of right shoulder, not elsewhere classified
CPT/HCPCS: 73221

== ENCOUNTER → 2018-08-28 11:02 | Outpatient (CLI) | payer MEDICARE, OTHER, SELFPAY ==
--- NOTE | 2018-08-28 11:04 | MR_ITS ---
MR lumbar spine wo con, MR 3-d myelogram/MRCP HISTORY: LBP. Muscle spams bilateral legs, X3wks. ITS.REASON: LOW BACK PAIN ORDERING PHYSICIAN: Addy Lara PATIENT AGE: 73 years Comparison: None TECHNIQUE: Standard multiplanar multiecho sequences are performed without contrast. 3-D MIP and myelographic images are also rendered and reviewed FINDINGS: Normal alignment. The spinal cord ends at the L1-L2 level. T12-L1: Unremarkable. L1-L2: Schmorl's nodes are present at this level with minimal right paracentral disc protrusion. L2-L3: Bulging disc with degenerative disc disease along with facet and ligamentum flavum hypertrophy with moderate bilateral lateral recess and foraminal narrowing. There is borderline canal stenosis. L3-L4: Mild concentric bulging disc along with moderate facet and ligamentum flavum hypertrophy with moderate bilateral lateral recess narrowing slightly greater on the right along with moderate bilateral foraminal narrowing. L4-L5: Mild concentric bulging disc along with facet and ligamentum flavum hypertrophy with moderate bilateral foraminal narrowing. L5-S1: Degenerative disc disease with bulging disc with facet and ligamentum flavum hypertrophy with moderate bilateral foraminal narrowing. No disc herniation. IMPRESSION: There is multilevel lumbar spondylosis with multilevel degenerative disc disease along with facet and ligamentum hypertrophy with bilateral lateral recess and foraminal narrowing. PLEASE SEE ABOVE FOR DETAILED DESCRIPTION AT EACH LEVEL No disc herniation. There is borderline canal stenosis at L2-L3
== END ==
PROVIDERS: PCP Internal Medicine; Visit Provider Internal Medicine
DX: M54.5 Low back pain (principal); M62.830 Muscle spasm of back
CPT/HCPCS: 72148; 76376

== ENCOUNTER → 2018-10-07 08:34 | Outpatient (CLI) | payer MEDICARE, OTHER, SELFPAY ==
--- NOTE | 2018-10-07 08:37 | FL_ITS ---
FL upper GI esophagus w/air HISTORY: GERD,, hernia and bloating belching pressure ORDERING PHYSICIAN: Addy Lara PATIENT AGE: 73 years Comparison: None FINDINGS: The esophagus, stomach, and duodenum have an unremarkable appearance. There is no evidence of hiatal hernia. No ulcer or mass evident. No mucosal abnormalities apparent. There is normal peristalsis. The duodenal C-loop is nondisplaced. Incidental note is made of diffuse sclerosis of the lower cervical spine consistent with patient's known history of Pagets disease FLUOROSCOPY TIME : 1 minute and 38 seconds. IMPRESSION: Unremarkable esophagram and negative upper GI.
== END ==
PROVIDERS: PCP Internal Medicine; Visit Provider Internal Medicine
DX: K21.9 Gastro-esophageal reflux disease without esophagitis (principal); K44.9 Diaphragmatic hernia without obstruction or gangrene; R14.2 Eructation
CPT/HCPCS: 74241

== ENCOUNTER 2018-12-24 11:00 | Outpatient (RCR) | payer MEDICARE, OTHER, SELFPAY ==
--- NOTE | 2018-10-03 14:57 | HMH.PTOPEV ---
PT Outpatient Evaluation Rehab PT Outpatient Evaluation Start: 10/03/18 14:42 Freq: Status: Active Protocol: Document 10/03/18 14:42 TERRAJOSE (Rec: 10/03/18 14:57 [email or web address] [id number]) Electronically Signed By Laith Walker, PT 10/03/18 14:42 Outpatient Therapy Subjective History Subjective History Patient presenting to outpatient PT with reports of chronic low back pain with associated BLE muscle spasms. Pt reports he recently had a fall at home and had a difficult time getting up secondary to BLE weakness. Most recent diagnostics indicate multi-level lumbar DDD and disc bulges. 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 Relief with distraction and special tests indicate L upslip of the innominant. Chief Complaint Pain,Stiff,Gives out/Unstable, Weakness Symptom Type Ache,Dull Symptoms Relieved By Rest/Positioning Symptoms Aggravated By Sitting,Bending/Stooping, Lifting Prior Functional Limitations None Current Functional Limitations Lifting,Housework,Sitting, Recreation Activity,Bending/ Stooping Symptom Description Constant but Variable Level of pain today (0-10) 6 Pain scale - at its best (0-10) 2 Pain scale - at its worst (0-10) 6 Lumbopelvic Eval Posture Thoracic Spine Posture Standing Position Increased Kyphosis Lumbar Spine Posture Standing Position Decreased Lordosis Assistive device Assistive Devices None / NA Palapation tenderness right Lumbar/Sacral Palpation Findings Tenderness Lumbar/Sacral Palpation Overall Comment PSIS Accessory Movement L4 right L5 right S1 right Range of Motion Lumbar Spine Active Flexion Range of WNL Motion (degrees) Lumbar Spine Active Extension Range of 8 relief Motion (degrees) Left Lumbar Spine Lateral Flexion Active 22 Range of Motion (degrees) Right Lumbar Spine Lateral Flexion 16 Active Range of Motion (degrees) Lumbar Spine ROM Limitations Soft Tissue Tightness,Bony Restriction Manual Muscle Test Bilateral Knee
--- NOTE | 2018-12-24 11:56 | HMH.RHREAS ---
Rehab Reassessment Rehab OP Re-assessment Start: 12/24/18 11:29 Freq: Status: Active Protocol: Document 12/24/18 11:29 SWATI (Rec: 12/24/18 11:54 SWATI [id number]) Electronically Signed By Laith Walker, PT 12/24/18 11:29 Rehab Re-assessment Subjective Subjective Pt reports 40% improvement for lower back and hip pain since start of care. Objective Objective Notes AROM: Flx WFL; Ext 22; SBr 22; SBl 28 MMT:grossly 4+/5 in all BLE mm groups. Pain: 4/10 TTP: R PSIS to R greater trochanter Neuro: WNL Assessment Progress Assessment Progressing as Expected Assessment Notes Pt compliant with HEP. No recent falls to report. Overall improved BLE strength as noted above. Pt continues to have consistent pain in the R lumbar spine, PSIS and R hip contintributing to funcitonal limtations with all standing, walking, bending and lifting activities. Significant functional limtiations persist. Rx has consisted of progression of HEP, lumbar spine mechanical traction and modalities for pain/anti-inflammatory purposes. Patient goals met STG's; BLE strength and stair LTG's Goals Not Met All other LTG's Revised Goals NA Plan Plan Continue with POC Frequency of Therapy 1x/week Duration of therapy 4 weeks Time and Billing Re-Eval Time 15 Re-Eval Billing Units 1 PHYSICIAN CERTIFICATION: I certify the specified therapy services for [place] [facility] Her[facility] are required, authorized, and reviewed every 30 days.
== END 2018-12-24 11:05 | disposition home or self-care (01) ==
LOC: PT 11:00
PROVIDERS: PCP Internal Medicine; Visit Provider Internal Medicine
DX: M54.5 Low back pain (principal); M79.604 Pain in right leg; M79.605 Pain in left leg; R53.1 Weakness
CPT/HCPCS: 97010; 97012; 97014; 97110; 97163; 97164; G0283

== ENCOUNTER → 2019-01-12 10:14 | Outpatient (CLI) | payer MEDICARE, OTHER, SELFPAY ==
[2019-01-12 11:36] LABS: Basophils % 0.7 % (0.1-2.0); Eosinophils # 0.2 K/mm3 (0.0-0.4); Eosinophils % 2.9 % (0.1-12.0); Hematocrit 52.1 % (42.0-52.0); Hemoglobin 16.4 g/dL (14.1-18.0); Lymphocytes # 1.7 K/mm3 (0.7-4.5); Lymphocytes % 29.7 % (10-50); Mean Corpuscular HGB Conc 31.4 g/dL (31.8-35.4); Mean Corpuscular Hemoglobin 30.5 pg (27.0-31.2); Mean Platelet Volume 10.4 fl (7.4-10.4); Monocytes # 0.4 K/mm3 (0.1-1.0); Neutrophils # 3.5 K/mm3 (1.8-7.8); Neutrophils % 59.7 % (37.0-80.0); Platelet Count 144 K/mm3 (142-424); Red Blood Count 5.37 M/mm3 (4.60-6.20); Red Cell Distribution Width 13.2 % (11.5-17.5); White Blood Count 5.8 K/mm3 (4.8-10.8)
[2019-01-12 12:02] LABS: Alanine Aminotransferase 32 U/L (12-78); Albumin Level 3.9 gm/dL (3.4-5.0); Albumin/Globulin Ratio 1.1 (1.1-1.8); Alkaline Phosphatase 52 U/L (46-116); Aspartate Amino Transferase 16 U/L (15-37); Bilirubin,Total 0.4 mg/dL (0.2-1.0); Blood Urea Nitrogen 22 mg/dL (7-18); Carbon Dioxide 30 mmol/L (21.0-32.0); Chloride 106 mmol/L (98-107); Chol/HDL Ratio 4.4 (1-3.5); Cholesterol 192 mg/dL (140-200); Creatinine,Serum 1.24 mg/dL (0.70-1.30); Estimated Glomerular Filt Rate 57 ml/min (>60); GFR (African American) 69 ML/MIN (>60); Globulin 3.5 gm/dl (1.3-3.2); Glucose 106 mg/dL (74-106); HDL Cholesterol 44 mg/dL (27-67); LDL Cholesterol 121 mg/dL (0-130); Phosphorous 3.2 mg/dL (2.4-4.9); Sodium 144 mmol/L (136-145); Thyroid Stimulating Hormone 2.68 uIU/ml (0.358-3.740); Total Protein,Serum 7.4 gm/dL (6.4-8.2); Triglycerides 136 mg/dL (30-200); Uric Acid 7.5 mg/dL (2.6-7.2); VLDL Cholesterol 27 mg/dL (0-40)
[2019-01-13 09:29] LABS: Folate 17.4 ng/mL (>3.0); Vitamin B12 1052 pg/mL (232-1245)
[2019-01-13 16:10] LABS: Albumin 4.1 g/dL (2.9-4.4); Alpha-1-Globulin 0.2 g/dL (0.0-0.4); Alpha-2-Globulin 0.8 g/dL (0.4-1.0); Gamma Globulin 1.1 g/dL (0.4-1.8); Protein, Total 7.5 g/dL (6.0-8.5)
== END ==
PROVIDERS: Visit Provider Internal Medicine
DX: M54.2 Cervicalgia (principal); M88.1 Osteitis deformans of vertebrae; D75.1 Secondary polycythemia; D69.6 Thrombocytopenia, unspecified; I10 Essential (primary) hypertension; M10.9 Gout, unspecified; G31.84 Mild cognitive impairment of uncertain or unknown etiology; G47.33 Obstructive sleep apnea (adult) (pediatric)
CPT/HCPCS: 36415; 80053; 80061; 82607; 82746; 84100; 84155; 84165; 84443; 84550; 85025

== ENCOUNTER 2019-02-03 14:00 | Outpatient (RCR) | payer MEDICARE, OTHER, SELFPAY | END 2019-02-03 14:05 | disposition home or self-care (01) | LOC: OT 14:00 | PROVIDERS: PCP Internal Medicine; Visit Provider Internal Medicine | DX: M25.511 Pain in right shoulder (principal) | CPT/HCPCS: 97014; 97110; 97166; G0283 ==

== ENCOUNTER 2019-02-18 15:00 | Outpatient (RCR) | payer MEDICARE, OTHER, SELFPAY ==
--- NOTE | 2019-01-27 15:36 | HMH.PTOPEV ---
PT Outpatient Evaluation Rehab PT Outpatient Evaluation Start: 01/27/19 15:14 Freq: Status: Active Protocol: Document 01/27/19 15:14 SWATI (Rec: 01/27/19 15:36 SWATI [id number]) Electronically Signed By Laith Walker, PT 01/27/19 15:14 Outpatient Therapy Subjective History Subjective History Pt is a 73 year old female presenting to outpatient PT with reports of low back pain which radiates to B hips (R>L) of insidious onset starting approximately 4 months ago. Pt reports overall decreased symptoms with previous PT treatment for same issues. Good responses to lumbar/BLE stretching and lumbar mechanical traction. Comorbidities include Pagets disease. He is currently beeing seen in OT for shoulder pain as well. Chief Complaint Pain,Stiff,Weakness Symptom Type Ache,Dull Symptoms Relieved By Rest/Positioning,Activity Prior Functional Limitations Reaching,Lifting,Housework, Recreation Activity,Bending/ Stooping Current Functional Limitations Reaching,Lifting,Housework, Recreation Activity,Bending/ Stooping Symptom Description Constant but Variable Level of pain today (0-10) 3 Pain scale - at its best (0-10) 3 Pain scale - at its worst (0-10) 6 Lumbopelvic Eval Posture Thoracic Spine Posture Standing Position Increased Kyphosis Lumbar Spine Posture Standing Position Decreased Lordosis Assistive device Assistive Devices None / NA Palapation tenderness bilateral paraspinal tenderness Yes: 3/4 buttock tenderness Yes: 3/4 Accessory Movement L4 right L5 right S1 right Range of Motion Lumbar Spine Active Flexion Range of 80 Motion (degrees) Lumbar Spine Active Extension Range of 18 Motion (degrees) Left Lumbar Spine Lateral Flexion Active 17 Range of Motion (degrees) Right Lumbar Spine Lateral Flexion 24 Active Range of Motion (degrees) Lumbar Spine ROM Limitations Soft Tissue Tightness,Bony Restriction Manual Muscle Test Left Knee Extension Strength Grade 4 Good Knee Flexion Strength Grade 5 Normal Hip Flexion Strength Grade 4 Good Extensor Martinez
== END 2019-02-18 15:05 | disposition home or self-care (01) ==
LOC: PT 15:00
PROVIDERS: Visit Provider Internal Medicine
DX: M54.5 Low back pain (principal); M79.604 Pain in right leg; M79.605 Pain in left leg
CPT/HCPCS: 97163

== ENCOUNTER 2019-05-13 13:38 | Outpatient (RCR) | payer MEDICARE, OTHER, SELFPAY | END 2019-05-13 14:25 | disposition home or self-care (01) | LOC: PT 13:38 | PROVIDERS: PCP Internal Medicine; Visit Provider Internal Medicine | DX: M76.62 Achilles tendinitis, left leg (principal) | CPT/HCPCS: 97035; 97110; 97163 ==

== ENCOUNTER 2019-11-17 17:49 | Emergency (ER) | payer MEDICARE, OTHER, SELFPAY ==
--- NOTE | 2019-11-17 18:27 | XR_ITS ---
PROCEDURE: XR FOOT LT MIN 3V CLINICAL INDICATION: DROPPED WIEGHT ON IT Posttraumatic pain COMPARISON: No exams were available for comparison FINDINGS: No fracture or dislocation. No lytic or blastic change. There is normal mineralization. The joint spaces are well-preserved. No significant degenerative/arthritic changes. No erosive changes evident. Other findings:None. IMPRESSION: No acute findings. Dictated by: Montana Dyer MD 11/18/2019 03:45 Montana Dyer MD in [place] 11/18/2019 03:45
--- NOTE | 2019-11-17 18:27 | XR_ITS ---
PROCEDURE: XR ANKLE LT MIN 3V CLINICAL INDICATION: DROPPED WEIGHT ON IT COMPARISON: No exams were available for comparison FINDINGS: No fracture or dislocation. No lytic or blastic change. There is normal mineralization. The joint spaces are well-preserved. No significant degenerative/arthritic changes. No erosive changes evident. Other findings:None. IMPRESSION: No acute findings. Dictated by: Montana Dyer MD 11/18/2019 03:44 Montana Dyer MD in [place] 11/18/2019 03:44
[2019-11-17 18:45] VITALS: BP 142/91; PULSE 91; RESP 18; TEMP 36.9; O2SAT 100; BMI 25.0
--- NOTE | 2019-11-17 19:11 | HMH.EDUTC ---
[facility] Disposition Clinical Impression: Crush injury of left foot Qualifiers: Encounter type: initial encounter Qualified Code(s): S97.82XA - Crushing injury of left foot, initial encounter Disposition: Home, Self-Care Condition on Discharge: Good Instructions: DI for Foot Pain, DI for Crush Injury Additional Instructions: Rest the extremity, apply ice for 15 minutes as tolerated three or four times per day, Wear the lul wrap for compression, Elevate the extremity as tolerated while you are resting. Take tylenol for pain. Follow up with Dr. Oliver (critical care clinical nurse specialist) if you continue to have symptoms. I put in a referral but you need to call her office and schedule an appointment. Follow up with your regular doctor. GO TO THE ER FOR ANY WORSENING SYMPTOMS Referrals: Addy Lara [Primary Care Provider] - Kajal Oliver DPM [Staff Physician] - Time of Disposition: 19:15 Medical Decision Making - Medical Records Medical records reviewed: No: I reviewed the patient's medical records. - Reji Inquiry Pt receiving controlled substance: No Vital Signs: 11/17/19 18:45 Temperature 98.4 F Temperature Source Oral Pulse Rate [Right Brachial] 91 H Respiratory Rate 18 Blood Pressure [Right Arm] 142/91 H Blood Pressure Mean [Right Arm] 108 Blood Pressure Source [Right Arm] Automatic Cuff Blood Pressure Position [Right Arm] Sitting 02 Sat by Pulse Oximetry 100 Oxygen Delivery Method Room Air Orders (Tests/Meds): ORDERS Category Date Time Status XR ankle LT min 3V Stat Exams 11/17/19 18:27 Taken XR foot LT min 3V Stat Exams 11/17/19 18:27 Taken - Radiology Data #1 Image(s): Foot/Toes Image Reviewed: Yes I reviewed the patient's radiology image Preliminary Findings: No Fracture Seen [facility] HPI - General Stated complaint: AO 11/17/19 Dropped 100 lb weight on l foot Time Seen by Provider: 11/17/19 18:50 Mode of Arrival: Ambulatory Source of Information: Patient Limitations: No Limitations Description of Symptoms (Recalled from Triage Doc. by RN): PATIENT STATES THAT A 150 POUND WEIGHT FELL ON HIS LEFT FOOT TODAY HEENT Symptoms (Recalled from RN notes): No Resp Symptoms (Recalled from RN notes): No Skin Symptoms (Recalled from RN notes): No MS Symptoms (Recalled from RN notes): Yes Functional Status (Recalled from RN notes): WNL - History of Present Illness Provider Complaint: He states that he dropped an approx 150 pound tractor weight on to his left foot earlier today. He states that since then he has had pain in the foot. The pain is worse with walking and bearing weight. - Related Data Home Medications Medication Instructions Recorded Confirmed Alendronate Sodium [Alendronate 40 mg PO DAILY 08/15/17 09/03/18 40mg Tablet] Amlodipine Besylate [Amlodipine 10 mg PO DAILY 08/15/17 09/03/18 10mg Tab] Oxycodone HCl/Acetaminophen 1 tab PO Q8H PRN 08/15/17 09/03/18 [Percocet 5/325mg tablet] Montelukast Sodium [Montelukast 10 mg PO HS 08/23/17 09/03/18 10mg Tab] tamsulosin 0.4 mg capsule PO 90 Days #90 10/21/17 09/03/18 tizanidine 4 mg tablet 4 mg PO .prn 30 Days tab 10/21/17 09/03/18 citalopram 40 mg tablet 40 mg PO DAILY 30 Days #30 tab 12/09/17 09/03/18 fluticasone propionate 50 INTRANASAL 30 Days #16 g 01/13/18 09/03/18 mcg/actuation nasal spray,suspension omeprazole 20 mg capsule,delayed 20 mg PO DAILY 30 Days #30 cap 01/13/18 09/03/18 release oxybutynin chloride 10 mg PO 90 Days #90 tab 06/16/18 09/03/18 tablet,extended release 24 hr polyethylene glycol 3350 17 17 g PO DAILY #476 g 07/24/18 09/03/18 gram/dose oral powder Previous Rx's Medication Instructions Recorded Hydrocortisone [Hydrocortisone 1% 1 applicatio TP BID #1 tube 05/02/18 Cream 30gm Tube] Allergies Allergy/AdvReac Type Severity Reaction Status Date / Time No Known Allergies Allergy Verified 09/03/18 09:02 - Worker's Comp Is this a Worker's Comp case?: No [facility]
[2019-11-17 19:24] VITALS: BP 142/91; PULSE 91; RESP 18; TEMP 36.9; O2SAT 100
== END 2019-11-17 19:25 | disposition home or self-care (01) ==
PROVIDERS: Emergency Provider Nurse Practitioner Family; PCP Internal Medicine
DX: S97.82XA Crushing injury of left foot, initial encounter (principal); W22.8XXA Striking against or struck by other objects, initial encounter; Y92.9 Unspecified place or not applicable; Z79.899 Other long term (current) drug therapy; E78.5 Hyperlipidemia, unspecified; I10 Essential (primary) hypertension; F41.9 Anxiety disorder, unspecified; Z90.09 Acquired absence of other part of head and neck
CPT/HCPCS: G0463; 73610; 73630; 99201

== ENCOUNTER → 2020-04-12 10:46 | Outpatient (POV) | payer MEDICARE, OTHER, SELFPAY | PROVIDERS: Visit Provider Otolaryngology | DX: Z00.00 Encounter for general adult medical examination without abnormal findings (principal) ==

== ENCOUNTER → 2020-05-16 13:33 | Outpatient (CLI) | payer MEDICARE, OTHER, SELFPAY ==
[2020-05-16 15:21] LABS: Prostate Specific Ag Screen 3.4 ng/ml (0.0-4.0)
== END ==
PROVIDERS: Visit Provider Urology
DX: Z12.5 Encounter for screening for malignant neoplasm of prostate (principal)
CPT/HCPCS: 36415; G0103

== ENCOUNTER → 2020-05-24 11:09 | Outpatient (POV) | payer MEDICARE, OTHER, SELFPAY | PROVIDERS: Visit Provider Otolaryngology | DX: Z00.00 Encounter for general adult medical examination without abnormal findings (principal) ==

== ENCOUNTER → 2020-08-31 16:16 | Outpatient (CLI) | payer MEDICARE, OTHER, SELFPAY ==
--- NOTE | 2020-08-31 16:28 | ECG_ITS ---
APPROVED REPORT Exam: Resting ECG HR:93 bpm ECG Measurements Heart Rate 93 AXES QRSd 86 QRS 58 QT 342 T 76 QTc 425 Conclusion Atrial fibrillation Poor R Wave Progression Abnormal ECG Electronically signed by : Addy Lara, 09/07/2020 11:19:13
[2020-08-31 17:18] LABS: Basophils # 0.1 K/mm3 (0-0.2); Basophils % 0.8 % (0.1-2.0); Eosinophils # 0.2 K/mm3 (0.0-0.4); Eosinophils % 2.3 % (0.1-12.0); Hematocrit 49.8 % (42.0-52.0); Hemoglobin 17.1 g/dL (14.1-18.0); Lymphocytes # 2.4 K/mm3 (0.7-4.5); Lymphocytes % 30.2 % (10-50); Mean Corpuscular HGB Conc 34.4 g/dL (31.8-35.4); Mean Corpuscular Hemoglobin 32.1 pg (27.0-31.2); Mean Corpuscular Volume 93.3 fl (80-94); Monocytes # 0.7 K/mm3 (0.1-1.0); Neutrophils # 4.8 K/mm3 (1.8-7.8); Neutrophils % 58.7 % (37.0-80.0); Platelet Count 124 K/mm3 (142-424); Red Blood Count 5.34 M/mm3 (4.60-6.20); Red Cell Distribution Width 13.8 % (11.5-17.5); White Blood Count 8.1 K/mm3 (4.8-10.8)
[2020-08-31 17:22] LABS: Alanine Aminotransferase 26 U/L (12-78); Albumin Level 4.6 g/dl (3.5-5.0); Albumin/Globulin Ratio 1.6 (1.1-1.8); Alkaline Phosphatase 54 U/L (38-126); Anion Gap 15.4 mEq/L (5-15); Aspartate Amino Transferase 28 U/L (17-59); Bilirubin,Total 0.7 mg/dl (0.2-1.3); Blood Urea Nitrogen 29 mg/dl (9-20); Calcium 9.7 mg/dl (8.4-10.2); Carbon Dioxide 27 mmol/L (22.0-30.0); Chloride 103 mmol/L (98-107); Chol/HDL Ratio 5.1 (1-3.5); Cholesterol 225 mg/dl (140-200); Estimated Glomerular Filt Rate 42 ml/min (>60); GFR (African American) 51 ML/MIN (>60); Globulin 2.9 g/dL (1.3-3.2); Glucose 91 mg/dl (74-100); HDL Cholesterol 44 mg/dl (40-60); Phosphorous 4.3 mg/dl (2.5-4.5); Potassium 4.4 mmoL/L (3.5-5.1); Sodium 141 mmol/L (136-145); Total Protein,Serum 7.5 g/dl (6.3-8.2); Triglycerides 305 mg/dl (30-150); VLDL Cholesterol 61 mg/dL (0-40)
[2020-08-31 17:33] LABS: Direct LDL Cholesterol 134.15 mg/dL (100-129)
[2020-08-31 17:37] LABS: 25-OH Vitamin D, Total 49.8 ng/mL (30-100)
[2020-08-31 17:38] LABS: T4 (Thyroxine) 4.6 ug/dl (5.53-11.0)
[2020-08-31 17:52] LABS: Thyroid Stimulating Hormone 2.81 uIU/mL (0.465-4.68)
== END ==
PROVIDERS: PCP Internal Medicine; Visit Provider Internal Medicine
DX: I48.91 Unspecified atrial fibrillation (principal); I10 Essential (primary) hypertension; D75.1 Secondary polycythemia; D69.6 Thrombocytopenia, unspecified; E78.5 Hyperlipidemia, unspecified; Z68.26 Body mass index [BMI] 26.0-26.9, adult
CPT/HCPCS: 80053; 80061; 82306; 84100; 84436; 84443; 85025; 93005

== ENCOUNTER → 2020-09-09 09:58 | Outpatient (CLI) | payer MEDICARE, OTHER, SELFPAY ==
--- NOTE | 2020-09-09 | CA_ITS ---
APPROVED REPORT EXAM: Comprehensive 2D, Doppler, and color-flow Echocardiogram Shoe Sticks Repairer: Janell Gurrola RT(R) Ht: 6 ft 2 in Wt: 194lbs BSA: 2.15 BP: 150/89 mmHg Indications: PALPS,A-FIB,DIZZINESS,MURMUR,HX RHEUMATIC FEVER,HTN,HLD,EX SMOKER 2D Dimensions LVOT 2.05 cm (M/F) 1.5-2.5 LVEF (Devlin's) 43.30 % M: 52 - 72 LV Volume 90.30 mL M: 62 - 150 LV Volume Index 42.19 mL/m2 M: 34 - 74 LA Volume 59.70 mL LA Volume Index 27.89 mL/m2 (M/F) 16-34 M-Mode Dimensions RVDd 2.50 cm (0.9-2.6) LA Diam 4.38 cm (1.9-4.0) LVDd 4.25 cm (3.5-5.7) Ao Diam 2.94 cm (2.0-3.7) LVDs 3.43 cm (3.5-5.7) IVSd 0.82 cm (0.6-1.1) PWd 0.86 cm (0.6-1.1) EF (Teich) 40.00% FS 19.30% EDV (Teich) 80.80 mL ESV (Teich) 48.50 mL Aortic Valve LVOT Max 92.00 (70-110 cm/s) LVOT VTI 17.03 cm AoV Peak Jim. 135.00 (50-130 cm/s) AI PHT 866.00 ms AO Peak GR. 7.30 mmHg AO Mean GR. 3.60 (<5 mmHg) AO VTI 23.39 (18-25 cm) BHAVANI (VTI) 2.40 (2.5-4.5 cm2) Left Ventricle Left atrium is mildly enlarged, left ventricle is normal size, mild concentric left ventricular hypertrophy, visually estimated ejection fraction 55% with no regional wall motion abnormality, diastolic parameters are inconclusive. Right Ventricle Right atrium and right ventricle are normal size and contractility. Aortic valve is minimally thickened and fibrosed, there is no aortic stenosis, there is mild aortic insufficiency. Mitral Valve Mitral valve is minimally thickened, there is mild mitral regurgitation. Tricuspid Valve Tricuspid grossly normal there is mild tricuspid regurgitation, tricuspid regurgitation jet velocity is inadequate for calculation of the right ventricular systolic pressure. Pulmonic Valve Pulmonic valve is poorly visualized. Great Vessels Aortic root is normal size. Pericardium No significant pericardial effusion noted. Conclusion 1. Mildly enlarged left atrium, normal left ventricular size, mild concentric left ventricular hypertrophy, visually estimated ejection fraction 55% with no regional wall motion abnormality. Diastolic parameters are inconclusive. 2. Mild aortic, mild mitral and tricuspid regurgitation. 3. No significant pericardial effusion noted. Electronically signed by : Wade Quijano, 09/09/2020 13:30:52
== END ==
PROVIDERS: PCP Internal Medicine; Visit Provider Internal Medicine
DX: I48.0 Paroxysmal atrial fibrillation (principal); R00.2 Palpitations
CPT/HCPCS: 93306

== ENCOUNTER → 2020-09-19 16:25 | Outpatient (CLI) | payer MEDICARE, OTHER, SELFPAY | PROVIDERS: PCP Internal Medicine; Visit Provider Urology | DX: E78.5 Hyperlipidemia, unspecified (principal); I10 Essential (primary) hypertension; I48.91 Unspecified atrial fibrillation; N18.9 Chronic kidney disease, unspecified; R00.2 Palpitations; R07.9 Chest pain, unspecified; R42 Dizziness and giddiness | CPT/HCPCS: 93270 ==

== ENCOUNTER → 2020-09-22 12:22 | Outpatient (CLI) | payer MEDICARE, OTHER, SELFPAY ==
--- NOTE | 2020-09-22 12:23 | NM_ITS ---
APPROVED REPORT Exam: Nuclear Stress Test Indication: Syncope, Dizziness, HTN, High cholesterol, Tobacco use Patient Location: Outpatient Stress Tech: Angela Stahl [place] Tech:Selene Quintanilla, ARRT, RT (R)(N) Ht: 6 ft 2 in Wt: 194 lbs HR: 75 bpm BP: 143/89 mmHg BSA: 2.15 m2 BMI: 24.9 History: Syncope, Dizziness, HTN, High cholesterol, Tobacco use Procedure: Patient received a 0.4 mg of intravenous Lexiscan, resting heart rate 75 bpm, resting blood pressure 143/89 mmHg, with Lexiscan maximum heart rate achived was 109 bpm which is Less than 85 % of the maximum predicted heart rate and blood pressure was 143/89 mmHg. Electrocardiogram Resting electrocardiogram showed sinus rhythm, with Lexiscan there is less than 1.[address] segment depression noted from the baseline EKG. The EKG portion of the Lexiscan is nondiagnostic. Cardiac Stress and Resting SPECT Images: Cardiac Stress and Resting SPECT images were obtained using technetium 99m Myoview 32.6 mCi stress and 10.13 mCi at rest. Gated SPECT for analysis of segmental wall motion and calculation of the ejection fraction also done, prone images were also obtained. Cardiac stress and resting SPECT images show a fixed defect involving the inferior wall likely secondary to nontransmural myocardial scarring, computer derived ejection fraction is 40% with moderate inferior wall hypokinesis, right ventricle is normal size and contractility. Conclusion: 1. The EKG portion of the Lexiscan is nondiagnostic. 2. Scintigraphic evidence of nontransmural myocardial scarring involving the inferior wall without significant maryan-infarct ischemia, computer derived ejection fraction 40% with moderate inferior wall hypokinesis, right ventricle is normal size and contractility 3. Abnormal Lexiscan Myoview study. Electronically signed by : Wade Quijano, 09/22/2020 16:33:20
--- NOTE | 2020-09-22 14:38 | HMH.ITSHM ---
Current Home Medications as stated by this patient Adkins Jamaal Herrera or technical sales representatives. []TIZANIDINE OXYBUTYNIN OMEPRAZOLE METOPROLOL GABAPENTIN FLUTICASONE CITALOPRAM APIXABAN ALENDRONATE OXYCODONE MONTELUKAST AMLODIPINE
--- NOTE | 2020-09-22 14:43 | CA_ITS ---
APPROVED REPORT Exam: Pharmacologic Technologist: Angela Stahl, Ht: 6 ft 2 in Wt: 198 lbs BSA: 2.16 m2 HR: 75 bpm BP: 143/95 mmHg Medical History Medications: Amlodipine,,,,, Omeprazole,,,,, Gabapentin,,,,, Citalopram,,,,, ElIQUIS,,,,, Metroprolol,,,,, Alendronate,,,,, MonteKULAST,,,,, TizanDINE,,,,, OxYbutyIN cHLORIDE eR,,,,, PolyethYLENE GLYCOL,,,,, Stress Test Details Test: LEXISCAN HR Resting HR: 86 bpm Max Heart Rate (APMHR): 143.123362 bpm Max HR Achieved: 120 bpm Target HR (85% APMHR): 121.420342 bpm % of APMHR: 83.92 Recovery HR: 90 bpm BP Resting BP: 143/95 mmHg Max BP: 143/95 mmHg Recovery BP: 127.0/77.0 mmHg ECG Resting ECG: Afib, controlled rate, PVC vs aberrant beat, poor R wave progression Clinical Exercise duration: 04:00 min Highest Stage Achieved: Stress ECG Conclusion Symptoms: Chest tightness, mild SOA and Malaise. Arrhythmias/Ectopy: Occ PVC vs aberrant beat. ST-T Changes: No significant changes. Conclusion: Unremarkable Lexiscan stress. Myoview images reported separately. Electronically signed by : Wade Quijano, 09/22/2020 16:21:19
== END ==
PROVIDERS: PCP Internal Medicine; Visit Provider Urology
DX: E78.5 Hyperlipidemia, unspecified (principal); I10 Essential (primary) hypertension; I48.91 Unspecified atrial fibrillation; N18.9 Chronic kidney disease, unspecified; R07.9 Chest pain, unspecified; R42 Dizziness and giddiness
CPT/HCPCS: 78452; 93017; A9502; J2785

== ENCOUNTER → 2020-10-31 15:25 | Outpatient (CLI) | payer MEDICARE, OTHER, SELFPAY ==
[2020-10-31 15:51] LABS: Basophils # 0.1 K/mm3 (0-0.2); Eosinophils # 0.2 K/mm3 (0.0-0.4); Eosinophils % 2.9 % (0.1-12.0); Hematocrit 53.1 % (42.0-52.0); Hemoglobin 17.8 g/dL (14.1-18.0); Lymphocytes % 26.6 % (10-50); Mean Corpuscular HGB Conc 33.5 g/dL (31.8-35.4); Mean Corpuscular Hemoglobin 32.4 pg (27.0-31.2); Mean Platelet Volume 10.1 fl (7.4-10.4); Monocytes # 0.6 K/mm3 (0.1-1.0); Monocytes % 7.4 % (1.7-9.3); Neutrophils # 4.6 K/mm3 (1.8-7.8); Platelet Count 132 K/mm3 (142-424); Red Blood Count 5.47 M/mm3 (4.60-6.20); Red Cell Distribution Width 13.5 % (11.5-17.5); White Blood Count 7.4 K/mm3 (4.8-10.8)
[2020-10-31 17:12] LABS: Anion Gap 14.9 mEq/L (5-15); Blood Urea Nitrogen 26 mg/dl (9-20); Calcium 9.4 mg/dl (8.4-10.2); Carbon Dioxide 29 mmol/L (22.0-30.0); Chloride 102 mmol/L (98-107); Estimated Glomerular Filt Rate 54 ml/min (>60); GFR (African American) 65 ML/MIN (>60); Glucose 126 mg/dl (74-100); Potassium 4.9 mmoL/L (3.5-5.1); Sodium 141 mmol/L (136-145)
== END ==
PROVIDERS: Visit Provider Nurse Practitioner Family
DX: N18.9 Chronic kidney disease, unspecified (principal); E78.2 Mixed hyperlipidemia; I10 Essential (primary) hypertension; I20.8 Other forms of angina pectoris; R94.31 Abnormal electrocardiogram [ECG] [EKG]; R94.39 Abnormal result of other cardiovascular function study; Z01.812 Encounter for preprocedural laboratory examination; Z20.822 Contact with and (suspected) exposure to COVID-19
CPT/HCPCS: 36415; 80048; 85025; U0003

== ENCOUNTER 2020-11-01 07:54 | Day surgery (SDC) | payer MEDICARE, OTHER, SELFPAY ==
[2020-11-01] VITALS (13 sets, daily range): BP systolic 100–149; BP diastolic 59–104; PULSE 61–97; RESP 13–18; TEMP 36.4–36.6; O2SAT 94–98; BMI 25.9
--- NOTE | 2020-11-01 07:03 | IR_ITS ---
APPROVED REPORT Patient Location: Outpatient [facility] Dresser: JONATHAN Villareal RT (R) PROCEDURES Left heart catheterization Left ventriculogram Selective coronary angiogram INDICATION Abnormal Myoview Informed consent was obtained prior to the procedure. COMPLICATIONS None Estimated Blood Loss: Less than 10 mls TECHNIQUE One percent lidocaine used to anesthetize the right anterior aspect of the wrist. The right radial artery was accessed via the Seldinger technique. A 6 Ug[place] sheath was placed in the right radial artery. 2.5 mg of verapamil, 800 mcg of nitroglycerin, 1mg Lidocaine and 5000 U Heparin were given through the arterial sheath. The trap catheter was also used to perform left heart catheterization, left ventriculogram and selective coronary angiogram. At the end of the procedure the sheath was removed good hemostasis was achieved using Traclet band, patient was transferred to the postop holding area in stable condition. ANGIOGRAPHIC RESULTS The left main artery Normal The left anterior descending artery Mild 10% luminal irregularities The circumflex artery Nondominant mild 10% luminal irregularities The right coronary artery Large dominant with mild 10% luminal irregularities The PEREZ ventriculogram reveals Preserved at 55% The left ventricular end-diastolic pressure Elevated at 20 mmHg IMPRESSION Mild nonflow limiting coronary disease with preserved ejection fraction Mildly elevated LVEDP consistent with diastolic dysfunction PLAN 1. Medical management Electronically signed by : Flynn Hampton MD 11/01/2020 11:18:36
== END 2020-11-01 13:51 | disposition home or self-care (01) ==
LOC: CATHLAB 07:56
PROVIDERS: PCP Internal Medicine; Visit Provider Internal Medicine
DX: E78.2 Mixed hyperlipidemia (principal); I12.9 Hypertensive chronic kidney disease with stage 1 through stage 4 chronic kidney disease, or unspecified chronic kidney disease; I20.8 Other forms of angina pectoris; N18.9 Chronic kidney disease, unspecified; R94.31 Abnormal electrocardiogram [ECG] [EKG]; R94.39 Abnormal result of other cardiovascular function study; Z79.01 Long term (current) use of anticoagulants; I48.91 Unspecified atrial fibrillation
CPT/HCPCS: 93458; 99152; C1725; C1769; J1644; Q9967

== ENCOUNTER → 2020-11-18 08:19 | Outpatient (CLI) | payer MEDICARE, OTHER, SELFPAY ==
--- NOTE | 2020-11-18 08:20 | US_ITS ---
PROCEDURE: US GALLBLADDER CLINICAL INDICATION: GERD COMPARISON: No exams were available for comparison FINDINGS: Pancreas: Unremarkable/Not well seen Liver: Diffuse increased echogenicity of the liver with poor through transmission of sound consistent with hepatic steatosis. No focal liver lesion demonstrated. There is appropriate direction of blood flow within non dilated portal vein.There is appropriate direction of blood flow within a non dilated portal vein. Right kidney: Unremarkable appearing. No hydronephrosis. Gallbladder: No stones are evident. There is no gallbladder wall thickening. Common duct is normal in diameter. IMPRESSION: Negative gallbladder ultrasound. No stones evident. Fatty liver Dictated by: Montana Dyer MD 11/21/2020 07:23 Montana Dyer MD in [place] 11/21/2020 07:23
== END ==
PROVIDERS: PCP Internal Medicine; Visit Provider Nurse Practitioner Family
DX: K21.9 Gastro-esophageal reflux disease without esophagitis (principal); R14.0 Abdominal distension (gaseous)
CPT/HCPCS: 76705

== ENCOUNTER → 2020-11-22 13:16 | Outpatient (CLI) | payer MEDICARE, OTHER, SELFPAY | PROVIDERS: PCP Internal Medicine; Visit Provider Nurse Practitioner Family | DX: G47.33 Obstructive sleep apnea (adult) (pediatric) (principal); R40.0 Somnolence | CPT/HCPCS: G0399 ==

== ENCOUNTER → 2021-01-02 15:17 | Outpatient (CLI) | payer MEDICARE, OTHER, SELFPAY ==
--- NOTE | 2021-01-02 15:20 | XR_ITS ---
PROCEDURE: XR HIP RT 2-3V W/PELVIS CLINICAL INDICATION: RT HIP PAIN COMPARISON: No exams were available for comparison FINDINGS: There is sclerotic change of the right acetabulum with osteophyte formation and joint space narrowing consistent with osteoarthritis of the right hip. There is also mild degenerative change of the left hip with sclerotic changes of the left acetabulum and mild osteophyte formation. No definite fractures or dislocations. IMPRESSION: Sclerotic changes of right acetabulum with osteophyte formation and joint space narrowing consistent with osteoarthritis of the right hip. Dictated by: Dolores Martin MD 01/02/2021 16:18 Dolores Martin MD in [place] 01/02/2021 16:18
--- NOTE | 2021-01-02 15:20 | XR_ITS ---
PROCEDURE: XR LUMBAR SPINE MIN 4V CLINICAL INDICATION: LOW BACK PAIN No known injury, history of Paget's disease COMPARISON: No exams were available for comparison FINDINGS: There is no definite evidence of fracture or dislocation. There are degenerative changes of the right hip. There is a tremendous volume of stool throughout the colon. There is lumbar spondylosis with osseous degenerative changes of the endplates and posterior elements. IMPRESSION: 1. No definite fracture or dislocation. 2. Degenerative change of the right hip. 3. Lumbar spondylosis. 4. Large volume of stool in the colon. Dictated by: Dolores Martin MD 01/02/2021 16:15 Dolores Martin MD in [place] 01/02/2021 16:15
== END ==
PROVIDERS: PCP Internal Medicine; Visit Provider Internal Medicine
DX: M54.50 Low back pain, unspecified (principal); M25.551 Pain in right hip
CPT/HCPCS: 72110; 73502

== ENCOUNTER → 2021-06-22 14:06 | Outpatient (CLI) | payer MEDICARE, OTHER, SELFPAY ==
[2021-06-22 15:48] LABS: Alanine Aminotransferase 27 U/L (12-78); Albumin Level 4.5 g/dl (3.5-5.0); Alkaline Phosphatase 40 U/L (38-126); Anion Gap 11.6 mEq/L (5-15); Aspartate Amino Transferase 32 U/L (17-59); Bilirubin,Direct 0.2 mg/dl (0.0-0.4); Bilirubin,Indirect 0.6 mg/dL (0.0-0.9); Bilirubin,Total 0.8 mg/dl (0.2-1.3); Bilirubin,Unconjugated 0.6 mg/dL (0.0-1.1); Blood Urea Nitrogen 30 mg/dl (9-20); Calcium 9.5 mg/dl (8.4-10.2); Carbon Dioxide 27 mmol/L (22.0-30.0); Chloride 108 mmol/L (98-107); Chol/HDL Ratio 5.8 (1-3.5); Cholesterol 207 mg/dl (140-200); Estimated Glomerular Filt Rate 59 ml/min (>60); GFR (African American) 71 ML/MIN (>60); Glucose 102 mg/dl (74-100); HDL Cholesterol 36 mg/dl (40-60); Potassium 4.6 mmoL/L (3.5-5.1); Sodium 142 mmol/L (136-145); Triglycerides 207 mg/dl (30-150); VLDL Cholesterol 41 mg/dL (0-40)
== END ==
PROVIDERS: PCP Nurse Practitioner Family; Visit Provider Urology
DX: E78.2 Mixed hyperlipidemia (principal); G47.33 Obstructive sleep apnea (adult) (pediatric); I10 Essential (primary) hypertension; I25.10 Atherosclerotic heart disease of native coronary artery without angina pectoris; I48.91 Unspecified atrial fibrillation; K21.9 Gastro-esophageal reflux disease without esophagitis; Z12.5 Encounter for screening for malignant neoplasm of prostate
CPT/HCPCS: 36415; 80048; 80061; 80076; G0103

== ENCOUNTER → 2021-08-31 14:33 | Outpatient (POV) | payer MEDICARE, OTHER, SELFPAY ==
[2021-08-31 14:45] VITALS: BP 158/97; PULSE 82; RESP 20; O2SAT 95; BMI 25.8
--- NOTE | 2021-09-01 08:37 | HMH.PMCON ---
Assessment and Plan (1) Paget disease of bone Status: Acute Category: Medical Code(s): M88.9 - Osteitis deformans of unspecified bone (2) Degenerative disc disease, lumbar Status: Acute Category: Medical Code(s): M51.36 - Other intervertebral disc degeneration, lumbar region (3) Degenerative disc disease, cervical Status: Acute Category: Medical Code(s): M50.30 - Other cervical disc degeneration, unspecified cervical region (4) Cervical radiculopathy Status: Acute Category: Medical Code(s): M54.12 - Radiculopathy, cervical region (5) Lumbar radiculopathy Status: Acute Category: Medical Code(s): M54.16 - Radiculopathy, lumbar region (6) Osteoarthritis Status: Acute Category: Medical Code(s): M19.90 - Unspecified osteoarthritis, unspecified site - Assessment and plan all Dx Assessment and Plan for all problems:: Patient presents today with chronic neck pain, LBP, shoulder pain, hip pains. He has cervical fusion on multiple levels due to Paget's disease. He is most concerned about his neck pain today. He feels popping during cervical rotation. He has limited ROM on his cervical spine due to pain. He has never had injective therapy in the past. We will schedule the patient for Cervical Epidural Steroid Injection C6-C7. Risks and benefits of the procedure have been explained to the patient. Patient would like to proceed with the procedure. Patient is on Eliquis that is prescribed by Dr. Lara. We will reach out to him if he can stop this medication prior to his procedure. I will refer the patient to physical therapy for evaluation and treatment of neck and low back pain. If the I will start the patient on tramadol 50 mg twice a day patient get minimal relief from the epidural steroid injection, we will consider ordering an updated cervical and lumbar MRI. I will start the patient on tramadol 50 mg twice a day for breakthrough pain, since the Ralston is causing constipation. Patient has been instructed to contact the clinic with any concerns before the next appointment. Dr. Meza has reviewed this note and agrees with this plan of care. This note was dictated using voice recognition software and make contain errors or omissions. HPI - Data of Consult Patient: new to practice Consult date: 08/31/21 Requesting Physician: ASRTID Morton - Consult Narrative Reason for consult: neck pain, LBP, right hip pain History of present illness: Mr. Herrera is a 76 year old male who presents today as a new patient. Patient is referred by Dr. Lara. Thank you for the referral. Patient presents today with chronic neck pain and LBP that radiates to BUE and BLE, R > L for both areas. He has a medical hx of Paget's disease causing cervical fusion of multiple levels. On top of the neck pain, he constantly have several areas of concern because of this such us shoulder pain, hip pain and LBP. He is most concerned about his neck pain today. With his neck pain, he gets radicular pain, numbness and paresthesia on BUE, R > L. He says that most of issues are on his right side. Denies any traumas or falls. Denies any vision changes. For pain, he takes tylenol as needed. He is prescribed gabapentin 100mg TID by Dr. Lara. He was tried on Ralston and still has some, but this causes him to have severe constipation. This medication does help with his pain but he only takes it when his pain is severe. Rates pain today as 08/18. Reji [id number], MEQ 0. CC: ASTRID Morton [facility] History I have reviewed the patient's past medical history: Yes Medical History: Reports:: Anxiety, BPH, Coronary Artery Disease, Hiatal Hernia, Hyperlipidemia, Hypertension Denies:: Cancer, Diabetes Mellitus Type 1, Diabetes Mellitus Type 2, Internal Pacemaker, MRSA, Seizures *Have you ever received a pneumonia vaccine?: Yes *Have you received a flu vaccine this season?: Yes Other Medical History: Reports: Arthritis, Cataracts, Other. Denies: Blood Tra
== END ==
PROVIDERS: Visit Provider Student in an Organized Health Care Education/Training Program
DX: M51.16 Intervertebral disc disorders with radiculopathy, lumbar region (principal); M50.10 Cervical disc disorder with radiculopathy, unspecified cervical region; M88.9 Osteitis deformans of unspecified bone; M19.90 Unspecified osteoarthritis, unspecified site
CPT/HCPCS: 99202; G0463

== ENCOUNTER 2021-09-19 07:48 | Day surgery (SDC) | payer MEDICARE, OTHER, SELFPAY ==
[2021-09-19 07:53] VITALS: BP 128/81; PULSE 74; RESP 18; TEMP 36.3; O2SAT 98; BMI 25.0
[2021-09-19 08:16] VITALS: BP 135/78; PULSE 88; RESP 18; TEMP 36.7; O2SAT 98; O2SAT 99
--- NOTE | 2021-09-19 08:21 | HMH.PMPROC ---
- Procedure Date: 09/19/21 Time: 08:22 Anesthesiologist:: Roman Krishnamurthy CRNA Complications:: None Pre-procedure Diagnosis:: denerative disc disease cervical spine multilevels. Cervical radiculopathy symptoms. Post-procedure Diagnosis:: Same Indications for Procedure:: This patient is a very pleasant 76-year-old male that comes to our clinic today for an initial cervical epidural steroid injection. Patient rates his neck pain 7/10. He describes his acne as constant, dull, aching. Also, patient reports bilateral arm radicular symptoms. Procedure Details:: Procedure:Cervical epidural steroid injection Informed consent was obtained and the risks and benefits of the procedure were explained to the patient. The patient was taken to the procedure room and noninvasive monitors placed, including noninvasive blood pressure cuff and pulse oximeter. The neck was prepped using Betadine as a cleansing solution. The C6-C7 interspace was palpated. The skin and subcutaneous tissues were anesthetized using lidocaine 1.5% and a 25-gauge needle. After this an 18-gauge Touhy epidural needle was placed into the C6-C7 interspace and advanced using loss of resistance to air until the epidural space was encountered. After confirmation of needle placement in the epidural space, a solution containing lidocaine 1.5%, 4 mL and Depo-Medrol 80 mg was incrementally injected into the cervical epidural space.~ The patient tolerated the procedure well with no complications. The patient was observed in the Pain Clinic and then discharged home neurologically intact. Plan and Disposition:: Patient was discharged without incident.
[2021-09-19 08:29] VITALS: BP 119/66; PULSE 62; RESP 20; O2SAT 100
== END 2021-09-19 08:30 | disposition home or self-care (01) ==
LOC: SC.PAINP 07:49
PROVIDERS: PCP Internal Medicine; Visit Provider Nurse Anesthetist, Certified Registered
DX: M50.123 Cervical disc disorder at C6-C7 level with radiculopathy (principal); M51.16 Intervertebral disc disorders with radiculopathy, lumbar region; M19.90 Unspecified osteoarthritis, unspecified site; M88.9 Osteitis deformans of unspecified bone
CPT/HCPCS: 62321; J1040; Q9966

== ENCOUNTER → 2021-10-09 09:30 | Outpatient (POV) | payer MEDICARE, OTHER, SELFPAY ==
[2021-10-09 09:47] VITALS: BMI 24.9
--- NOTE | 2021-10-09 10:18 | HMH.PAINSOAP ---
[facility] Pain Management SOAP Note Subjective:: Patient is a pleasant 76-year-old male that comes to our clinic today for follow-up of a cervical epidural steroid injection at C6-7 on 09/19/2021. 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 Patient states that he got 40% relief from this injection. He stated it took about 7 days for it to kick in but he does feel like it is still helping give him relief currently. Patient states he has been able to get up and move around and increase his activity over the last 2 weeks. Patient says about 3 or 4 days after the injection his right side did get a little worse however it is somewhat better. Patient states he is still currently having some pain in his neck radiating over to his bilateral shoulders, with his right side worse. He describes this as a sore, ache, throbbing and station. Patient is currently seeing physical therapy with minimal relief. Patient is taking tramadol 50 mg twice daily that he says significantly helps his pain. He also does take tizanidine 4 mg at night to help him sleep and with his pain. Patient is also prescribed gabapentin 100 mg 3 times a day by Dr. Addy Lara. Patient denies any side effects from these medications. Patient states he is seeing his doctor this week and going to discuss with him possibly about checking lab levels for other autoimmune disorders. His Reji is [id number]. It has been reviewed and appropriate. Review of Systems: General: No recent weight changes, no fever, no sleep disturbances Respiratory: No cough, no shortness of air, no recurring pulmonary infections Cardiovascular/peripheral vascular: No chest pain, no palpitations, no edema, no shortness of breath Gastrointestinal: No new onset incontinence, normal bowel movements reported Genitourinary: No new onset incontinence Musculoskeletal: Neck pain, shoulder pain Psychiatric: [Normal mood/affect] Neurological: [Denies weakness in extremities], [denies balance issues] Objective:: Physical Exam: General: Alert and oriented x3, no acute distress, pleasant and cooperative Lungs: Respirations even and unlabored, symmetrical chest expansion Eyes: PERRL Musculoskeletal: Flexion and extension of cervical [spine] somewhat guarded secondary to pain, [antalgic gait noted]. Point tenderness noted at bilateral cervical paraspinous and trapezius muscles Neurological: Speech clear, no gross sensory deficit Assessment:: Degenerative disc disease of cervical spine multilevels with cervical radiculopathy symptoms, myofascial pain, Paget disease of bone, osteoarthritis, degenerative disc disease of lumbar spine with lumbar radiculopathy symptoms Plan:: Patient states he has had significant relief from his cervical epidural steroid injection. Patient has point tenderness around his bilateral cervical paraspinous and trapezius muscles during today's exam. I have discussed with the patient regarding trigger point injections. Risk and benefits were discussed with the patient. He would like to proceed forward with these injections. I will also prescribe the patient compounding cream at today's visit. We will schedule the patient for trigger point injections of the bilateral cervical paraspinous spinous and trapezius muscles. Patient has been instructed to contact the clinic with any concerns before the next appointment. Dr. Meza has reviewed this note and agrees with this plan of care. This note was dictated using voice recognition software and make contain errors or omissions. [facility] History I have reviewed the patient's past medical history: Yes Medical History: Reports:: Anxiety, Atrial Fibrillation, BPH, Coronary Artery Disease, Hiatal Hernia, Hyperlipidemia, Hypertension Denies:: Cancer, Diabetes Mellitus Type
== END ==
PROVIDERS: PCP Internal Medicine; Visit Provider Student in an Organized Health Care Education/Training Program
DX: M50.10 Cervical disc disorder with radiculopathy, unspecified cervical region (principal); M51.16 Intervertebral disc disorders with radiculopathy, lumbar region; M79.18 Myalgia, other site; M88.9 Osteitis deformans of unspecified bone
CPT/HCPCS: 99212; G0463

== ENCOUNTER 2021-10-13 14:53 | Day surgery (SDC) | payer MEDICARE, OTHER, SELFPAY ==
[2021-10-13 13:35] VITALS: BP 136/89; PULSE 84; RESP 18; O2SAT 100
[2021-10-13 15:10] VITALS: BP 138/83; PULSE 87; RESP 18; TEMP 37.2; O2SAT 98; BMI 24.5
--- NOTE | 2021-10-13 15:31 | HMH.PMPROC ---
- Procedure Date: 10/13/21 Time: 15:31 Anesthesiologist:: Dante Meza MD Complications:: None Pre-procedure Diagnosis:: Myofascial pain in the neck on the right side and throughout upper and lower trapezius muscles Post-procedure Diagnosis:: Same Indications for Procedure:: Patient is a pleasant 76-year-old white male who we are treating for myofascial pain on the right side of the neck and upper and lower trapezius muscles. He has benefited from previous cervical epidural steroid injection. We will do trigger point injections today to the upper lower trapezius muscles to help him with his pain symptoms. Plans have been identified. Procedure Details:: Trigger point junctions x4 to upper and lower trapezius muscle Informed consent was obtained risk and benefits of the procedure were explained to the patient. Patient was taken the procedure room. The right side of the neck and upper and lower trapezius area was prepped using ChloraPrep. Trigger points were palpated and marked. Each of these trigger points were injected with bupivacaine 0.25% 3 mL and Depo-Medrol 10 mg. A total of 4 trigger was were injected using 40 mg Depo-Medrol. Patient tolerated the procedure well with no complications. Plan and Disposition:: We will follow-up with this patient in 2 weeks. Will reevaluate symptoms at that time.
== END 2021-10-13 15:35 | disposition home or self-care (01) ==
LOC: SC.PAINP 14:54
PROVIDERS: PCP Internal Medicine; Visit Provider Anesthesiology
DX: M79.18 Myalgia, other site (principal)
CPT/HCPCS: 20552; J1040

== ENCOUNTER → 2021-10-30 11:25 | Outpatient (POV) | payer MEDICARE, OTHER, SELFPAY ==
[2021-10-30 11:35] VITALS: BP 118/81; PULSE 61; RESP 18; TEMP 36.5; O2SAT 100
--- NOTE | 2021-10-30 12:25 | HMH.PAINSOAP ---
[facility] Pain Management SOAP Note Subjective:: Patient is a pleasant 76-year-old male who presents today for follow-up from trigger point injections to his bilateral cervical paraspinous and trapezius muscles on 10/13/2021. 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 Today the patient states that his trigger point injections have provided 70% improvement of his neck and shoulder symptoms. He states he has had less headaches and has been able to increase his activity with increased range of motion's since these injections. Today he rates his pain a 8 out of 10 and states is all in his low back that radiates into his right hip. He denies any new trauma or injury. Patient does state that he was weed eating about 2 weeks ago and that the pain worsened the following day. He stated he has used [id number]-[id number] Tylenol and ibuprofen with minimal relief. He has also tried topical creams such as icy hot and Biofreeze with no improvement of symptoms. He was ordered a compounding cream at our last visit and states he has not gotten that in the mail just yet. He is currently being managed with gabapentin 100 mg 3 times a day by Dr. Lara. We are also prescribing tramadol 50 mg twice a day. He denies any side effects from these medications. He states these medications are helping manage his pain. Patient has tried and failed conservative treatment such as oral medications, physical therapy, at home exercises and stretching for longer than 6 weeks. Patient is interested in injective therapy at today's visit. His Reji is [id number]. it has been reviewed and appropriate. Review of Systems: General: No recent weight changes, no fever, no sleep disturbances Respiratory: No cough, no shortness of air, no recurring pulmonary infections Cardiovascular/peripheral vascular: No chest pain, no palpitations, no edema, no shortness of breath Gastrointestinal: No new onset incontinence, normal bowel movements reported Genitourinary: No new onset incontinence Musculoskeletal: Low back pain, right hip pain Psychiatric: [Normal mood/affect] Neurological: [Denies weakness in extremities], [denies balance issues] Objective:: Physical Exam: General: Alert and oriented x3, no acute distress, pleasant and cooperative Lungs: Respirations even and unlabored, symmetrical chest expansion Eyes: PERRL Musculoskeletal: Flexion and extension of lumbar [spine] somewhat guarded secondary to pain, [antalgic gait noted]. Extreme point tenderness along bilateral SI's and positive bilateral Araceli's, Sydnee's, Gaenslen's, compression and distraction exam Neurological: Speech clear, no gross sensory deficit FINDINGS: There is no definite evidence of fracture or dislocation. There are degenerative changes of the right hip. There is a tremendous volume of stool throughout the colon. There is lumbar spondylosis with osseous degenerative changes of the endplates and posterior elements. IMPRESSION: 1. No definite fracture or dislocation. 2. Degenerative change of the right hip. 3. Lumbar spondylosis. 4. Large volume of stool in the colon. 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 He had extreme point tenderness along his bilateral SI's and positive bilat
== END ==
PROVIDERS: PCP Internal Medicine; Visit Provider Nurse Practitioner Family
DX: M50.10 Cervical disc disorder with radiculopathy, unspecified cervical region (principal); M51.16 Intervertebral disc disorders with radiculopathy, lumbar region; M46.1 Sacroiliitis, not elsewhere classified; M79.18 Myalgia, other site; M19.90 Unspecified osteoarthritis, unspecified site
CPT/HCPCS: 99212; G0463

== ENCOUNTER → 2021-11-09 13:33 | Outpatient (CLI) | payer MEDICARE, OTHER, SELFPAY ==
--- NOTE | 2021-11-09 13:36 | MR_ITS ---
FINAL REPORT CLINICAL HISTORY: LOW BACK PAIN WITH RIGHT HIP PAIN. PAIN DOWN RIGHT LEG. NO INJURY OR TRAUMA. FINDINGS: Multiplanar MR imaging of the lumbar spine was performed without contrast. On the sagittal T2-weighted images, disc degeneration is seen throughout. There are mild endplate changes at multiple levels. There are multiple Schmorl's nodes. The vertebral alignment is normal. There is no evidence of fracture. No bony mass is identified. The conus has an unremarkable appearance. No significant canal stenosis is identified. T12-L1: An annular bulge is present. There is no significant canal stenosis or neural foraminal narrowing. L1-2: There is an annular bulge and facet arthropathy. There is mild bilateral neural foraminal narrowing. L2-3: There is an annular bulge and facet arthropathy. There is mild bilateral neural foraminal narrowing. L3-4: There is an annular bulge, facet arthropathy and vertebral osteophytes. There is a small right foraminal annular tear and disc protrusion. There is mild right neural foraminal narrowing. L4-5: An annular bulge is present. There is moderate bilateral neural foraminal narrowing. L5-S1: There is an annular bulge and facet arthropathy. There is moderate bilateral neural foraminal narrowing. IMPRESSION: Multilevel degenerative disc disease with areas of neural foraminal narrowing. Small right foraminal annular tear and disc protrusion at L3-L4 without significant central canal stenosis. Reviewed, Interpreted and Dictated by Tristen Connolly III, MD Transcribed by Edward Ta Authenticated and . [facility]
== END ==
PROVIDERS: PCP Internal Medicine; Visit Provider Nurse Practitioner Family
DX: M54.50 Low back pain, unspecified (principal)
CPT/HCPCS: 72148; 76376

== ENCOUNTER 2021-11-17 13:55 | Day surgery (SDC) | payer MEDICARE, OTHER, SELFPAY ==
[2021-11-17 14:33] VITALS: BP 146/93; PULSE 85; RESP 18; TEMP 36.8; O2SAT 97; BMI 24.1
[2021-11-17 15:10] VITALS: BP 156/110; PULSE 99; RESP 18; O2SAT 95
[2021-11-17 15:12] VITALS: BP 156/110; PULSE 92; RESP 18; O2SAT 96
[2021-11-17 15:19] VITALS: BP 146/86; PULSE 85; RESP 20; O2SAT 96
--- NOTE | 2021-11-17 15:38 | EXP.PAIN.PRO ---
Procedure Date: 11/17/21 Time: 15:38 Anesthesiologist:: Dante Meza MD Complications:: None Pre-procedure Diagnosis:: Sacroiliitis Post-procedure Diagnosis:: Same Indications for Procedure:: Patient is a pleasant 76-year-old white male who we are treating for neck pain, low back pain and bilateral hip pain. He is tender over both SI joints. He has a positive Araceli's test bilaterally. Is positive Alan test bilaterally. Is positive SI joint compression test bilaterally. He has positive distraction test bilaterally. We will do bilateral SI joint injections today to see if this helps with his pain symptoms. We also did review his MRI does show multilevel degenerative changes with bulging disc and neuroforaminal narrowing throughout the lumbar spine. Procedure Details:: B/L SI joint injection under fluoroscopy Informed consent was obtained and the risks and benefits of the procedure was explained to the patient. The patient was taken to the procedure room and placed prone on the procedure table. The patient was prepped using ChloraPrep. The skin and subcutaneous tissues overlying the SI joints were anesthetized using lidocaine. I placed a 22-gauge needle first in the left SI joint and second in the right SI joint. Needle placement was confirmed with dye. After this we injected 5 mL bupivacaine 0.25% and Depo-Medrol 40 mg into each SI joint. Patient tolerated the procedure well with no complication. Plan and Disposition:: We will follow-up with this patient 2 weeks. Will reevaluate symptoms at that time. Given his MRI of his lumbar spine he may benefit from lumbar epidural steroid injections in the future to help with his bilateral leg pain.
== END 2021-11-17 15:20 | disposition home or self-care (01) ==
LOC: SC.PAINP 13:55
PROVIDERS: PCP Internal Medicine; Visit Provider Anesthesiology
DX: M46.1 Sacroiliitis, not elsewhere classified (principal)
CPT/HCPCS: 27096; G0260; J1040; Q9966

== ENCOUNTER → 2021-12-06 10:44 | Outpatient (POV) | payer MEDICARE, OTHER, SELFPAY ==
--- NOTE | 2021-12-06 11:15 | EXP.PAIN.SOA ---
[facility] Pain Management SOAP Note Subjective:: Patient is a pleasant 76-year-old male who presents today for follow-up of bilateral SI injections on 11/17/2021. 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 Today the patient states that he has had significant improvement following this last injection. He states he has had about 40% relief and feels like he is still getting additional improvement in his hips. Patient states he has been able to increase activity and range of motion movements in his bilateral hips. Today the patient rates his pain a 6 out of 10 and states the pain is primarily in his low back at the sides of his spine more in the muscle. Patient states this is a aching, dull sensation that is worse with increased activity. Patient denies any new trauma or injury. Patient does use keqv-fok-nevnndm Tylenol and ibuprofen with minimal improvement of his symptoms. He is also used topical creams such as icy hot and Biofreeze with no relief. He is currently managed with gabapentin 100 mg 3 times a day by Dr. Lara. And we are prescribing him tramadol 50 mg twice a day. Patient denies any side effects from these medications. He states these medications are adequately helping manage his pain. Patient has tried physical therapy approximately 1 month ago and states he did have some improvement however he was in so much pain that he had to temporarily stop going to these visits. His Reji is [id number]. It has been reviewed and appropriate. Review of Systems: General: No recent weight changes, no fever, no sleep disturbances Respiratory: No cough, no shortness of air, no recurring pulmonary infections Cardiovascular/peripheral vascular: No chest pain, no palpitations, no edema, no shortness of breath Gastrointestinal: No new onset incontinence, normal bowel movements reported Genitourinary: No new onset incontinence Musculoskeletal: Low back pain Psychiatric: [Normal mood/affect] Neurological: [Denies weakness in extremities], [denies balance issues] Objective:: Physical Exam: General: Alert and oriented x3, no acute distress, pleasant and cooperative Lungs: Respirations even and unlabored, symmetrical chest expansion Eyes: PERRL Musculoskeletal: Flexion and extension of lumbar [spine] somewhat guarded secondary to pain, [antalgic gait noted]. Point tenderness along bilateral lumbar paraspinous muscles Neurological: Speech clear, no gross sensory deficit Assessment:: degenerative disc disease of cervical and lumbar spine multilevels with cervical and lumbar radiculopathy symptoms, osteoarthritis, Paget's disease of the bone, myofascial pain of bilateral cervical paraspinous and trapezius muscles, bilateral sacroiliitis Plan:: Patient is having significant pain along his low back during today's visit. He had limited range of motion of his lumbar spine and point tenderness along his bilateral lumbar paraspinous muscles. Patient has tried and failed oral medications, heat and ice, topical medications, physical therapy and at home stretching and exercises for longer than 6 weeks. I have discussed with him that he may get beneficial relief with trigger point injections at this site. Risk and benefits were discussed with the patient. He would like to proceed forward with these injections. I will schedule him for TPI of bilateral lumbar paraspinous muscles at today's visit. Patient has been instructed to contact the clinic with any concerns before the next appointment. Dr. Meza has reviewed this note and agrees with this plan of care. This note was dictated using voice recognition software and make contain errors or omissions. [facility] Medical History A
[2021-12-06 11:22] VITALS: BP 160/94; PULSE 92; RESP 18; TEMP 36.6; O2SAT 95; BMI 23.8
== END | disposition home or self-care (01) ==
PROVIDERS: PCP Internal Medicine; Visit Provider Nurse Practitioner Family
DX: M51.16 Intervertebral disc disorders with radiculopathy, lumbar region (principal); M50.10 Cervical disc disorder with radiculopathy, unspecified cervical region; M46.1 Sacroiliitis, not elsewhere classified; M79.18 Myalgia, other site; M88.9 Osteitis deformans of unspecified bone
CPT/HCPCS: 99212; G0463

== ENCOUNTER 2021-12-19 10:38 | Day surgery (SDC) | payer MEDICARE, OTHER, SELFPAY ==
[2021-12-19 10:45] VITALS: BP 142/97; PULSE 74; RESP 16; TEMP 36.4; O2SAT 94; BMI 23.6
[2021-12-19 11:06] VITALS: BP 176/100; PULSE 59; RESP 18; O2SAT 98
--- NOTE | 2021-12-19 11:08 | EXP.PAIN.PRO ---
Procedure Date: 12/19/21 Time: 11:08 Anesthesiologist:: Roman Krishnamurtyh CRNA Complications:: None Pre-procedure Diagnosis:: Myofascial pain bilateral lumbar paraspinous muscles Post-procedure Diagnosis:: Same. Indications for Procedure:: Very pleasant 76-year-old male that comes our clinic today for lumbar paraspinous muscle trigger point injections. Upon examination he has extremely tight bilateral lumbar paraspinous muscles. He rates the pain 8/10. Patient had similar injections in his cervical spine recently and reports significant improvement. Procedure Details:: Details of the procedure were explained to the patient. The patient was taken to the procedure room placed in the sitting position. The area of her lumbar spine was cleaned using chlorhexidine as a cleansing solution. 3 separate markers were identified over the bilateral lumbar paraspinous muscles superior to inferior. Each marker was injected with 3 cc of a solution containing 0.25% Marcaine +1% lidocaine and 40 mg of Depo-Medrol. Patient tolerated procedure without difficulty. No complications Plan and Disposition:: Patient was discharged without incident
[2021-12-19 11:10] VITALS: BP 135/74; PULSE 65; RESP 18; O2SAT 95
== END 2021-12-19 11:11 | disposition home or self-care (01) ==
PROVIDERS: PCP Internal Medicine; Visit Provider Nurse Anesthetist, Certified Registered
DX: M79.18 Myalgia, other site (principal); M51.16 Intervertebral disc disorders with radiculopathy, lumbar region; M50.10 Cervical disc disorder with radiculopathy, unspecified cervical region; M46.1 Sacroiliitis, not elsewhere classified; M19.90 Unspecified osteoarthritis, unspecified site
CPT/HCPCS: 20552; J1040

== ENCOUNTER → 2022-01-18 14:15 | Outpatient (POV) | payer MEDICARE, OTHER, SELFPAY ==
[2022-01-18 14:29] VITALS: BP 138/90; PULSE 102; RESP 18; O2SAT 97; BMI 24.6
--- NOTE | 2022-01-18 16:11 | EXP.PAIN.SOA ---
[facility] Pain Management SOAP Note Subjective:: Patient is a pleasant 76-year-old male who presents today for follow-up of trigger point injections of bilateral lumbar paraspinous muscles on 12/19/2021. 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 Today the patient states he has had 100% relief following these injections and feels like it is still continuing to help. Today he rates his pain a 5 out of 10. He states the pain is primarily in his neck and shoulders. Patient describes this as a aching, throbbing sensation that is worse with increased activity or range of motion. Patient stated he also has continued pain in his low back when twisting, lifting, bending. Patient denies any new trauma or injury. Patient denies any change location or type of pain he experiences. Patient does use [id number] Tylenol and ibuprofen with minimal improvement of his symptoms. Patient has used topical creams such as icy hot and Biofreeze with no relief. Patient has been prescribed compounding cream that he states does help some however only temporarily. Patient is prescribed tramadol 50 mg twice a day from our office. He states this medication does help with his pain symptoms and denies any side effects. He states he does not need any additional refills at this time. Patient is also prescribed gabapentin 100 mg 3 times a day from Dr. Lara's office. Patient has tried physical therapy within the last month and a half ago and states he did have some improvement however he had to stop due to the worsening pain symptoms. Patient states he has chronic vertigo issues as well as occasional balance problems. His Reji is [phone]. It has been reviewed and appropriate. Review of Systems: General: No recent weight changes, no fever, no sleep disturbances Respiratory: No cough, no shortness of air, no recurring pulmonary infections Cardiovascular/peripheral vascular: No chest pain, no palpitations, no edema, no shortness of breath Gastrointestinal: No new onset incontinence, normal bowel movements reported Genitourinary: No new onset incontinence Musculoskeletal: Neck pain, shoulder pain, low back pain Psychiatric: [Normal mood/affect] Neurological: [Denies weakness in extremities], [denies balance issues] Objective:: Physical Exam: General: Alert and oriented x3, no acute distress, pleasant and cooperative Lungs: Respirations even and unlabored, symmetrical chest expansion Eyes: PERRL Musculoskeletal: Flexion and extension of cervical, lumbar [spine] somewhat guarded secondary to pain, [antalgic gait noted]. Positive Kemps test Neurological: Speech clear, no gross sensory deficit Assessment:: Degenerative disc disease of cervical and lumbar spine multilevels with cervical and lumbar radiculopathy symptoms, osteoarthritis, Paget's disease of the bone, myofascial pain of bilateral cervical paraspinous and trapezius muscles, bilateral lumbar paraspinous muscles, bilateral sacroiliitis Plan:: Patient is experiencing significant pain in his neck and shoulders as well as low back during today's visit. Patient did have limited range of motion of his cervical and lumbar spine at today's visit. Patient did state that his neck was more bothersome than his low back at this time. Patient did have a positive Kemps test and I have discussed with the patient that he may get beneficial relief with a lumbar medial branch block in the future. At this time I have recommended a cervical epidural steroid injection. Patient has had an epidural in the past that provided significant improvement of his symptoms. Risk and benefits were discussed with the patient. He would like to proceed forward with this plan of care. Patient is on Eliquis for A
== END ==
PROVIDERS: PCP Internal Medicine; Visit Provider Nurse Practitioner Family
DX: M50.123 Cervical disc disorder at C6-C7 level with radiculopathy (principal); M46.1 Sacroiliitis, not elsewhere classified; M79.18 Myalgia, other site; M19.90 Unspecified osteoarthritis, unspecified site
CPT/HCPCS: 99212; G0463

== ENCOUNTER → 2022-01-24 11:52 | Outpatient (CLI) | payer MEDICARE, OTHER, SELFPAY ==
--- NOTE | 2022-01-24 11:58 | XR_ITS ---
FINAL REPORT CLINICAL HISTORY: foot pain FINDINGS: RIGHT FOOT Three views of the right foot demonstrate no acute fracture or dislocation. The joint spaces are preserved. There is a small accessory navicular. The soft tissues are unremarkable. IMPRESSION: No acute bony abnormality. Reviewed, Interpreted and Dictated by Jayme Mathur MD Transcribed by Anushka Menard Authenticated and . [facility]
--- NOTE | 2022-01-24 11:58 | XR_ITS ---
FINAL REPORT CLINICAL HISTORY: foot pain FINDINGS: LEFT FOOT Three views of the left foot demonstrate no acute fracture or dislocation. The joint spaces are preserved. There is a small accessory navicular. The soft tissues are unremarkable. IMPRESSION: No acute bony abnormality. Reviewed, Interpreted and Dictated by Jayme Mathur MD Transcribed by Anushka Menard Authenticated and [facility]
== END ==
PROVIDERS: PCP Internal Medicine; Visit Provider Podiatrist
DX: M72.2 Plantar fascial fibromatosis (principal); M79.672 Pain in left foot; M79.671 Pain in right foot
CPT/HCPCS: 73630

== ENCOUNTER → 2022-02-14 15:24 | Outpatient (CLI) | payer MEDICARE, OTHER, SELFPAY ==
--- NOTE | 2022-02-14 15:30 | XR_ITS ---
FINAL REPORT CLINICAL HISTORY: FALL FINDINGS: 3 views of the right ribs were obtained. There is mild irregularity of the right 8th and 9th distal ribs worrisome for nondisplaced fractures. There is no pleural fluid collection or pneumothorax. A single view of the chest demonstrates mild of bibasilar atelectasis or scarring. IMPRESSION: Irregularity of the right 8th and 9th distal ribs worrisome for nondisplaced fractures. Reviewed, Interpreted and Dictated by Tristen Connolly III, MD Transcribed by Edward Ta Authenticated and [facility]
== END ==
PROVIDERS: PCP Internal Medicine; Visit Provider Internal Medicine
DX: R07.81 Pleurodynia (principal); R07.89 Other chest pain; W19.XXXA Unspecified fall, initial encounter
CPT/HCPCS: 71101

== ENCOUNTER → 2022-02-20 14:29 | Outpatient (POV) | payer MEDICARE, OTHER, SELFPAY ==
[2022-02-20 14:57] VITALS: BP 141/96; PULSE 89; RESP 20; BMI 24.9
--- NOTE | 2022-02-20 15:19 | EXP.PAIN.SOA ---
[facility] Pain Management SOAP Note Subjective:: Patient is a pleasant 76-year-old male who presents today for follow-up. 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 Today the patient rates his pain a 4 out of 10. Patient states he has recently had a fall where he did stumble and bruised his ribs. Patient denies any fractures and does state that he was checked out by his primary care provider and had x-rays to confirm no injuries. Patient does use a cane for ambulation however he was not using it that day. Patient does use [id number] Tylenol and ibuprofen with minimal improvement. He also continues to use compounding cream that does provide some improvement. Patient is managed with tramadol 50 mg twice a day from our office. Patient denies any side effects from this medication. He states this medication does help treat his pain symptoms. Patient is also prescribed gabapentin 100 mg 3 times a day from Dr. Lara's office. Patient has been to physical therapy within the last 2 months however he was unable to complete due to worsening pain symptoms. His Reji is [id number]. Its been reviewed and appropriate. Review of Systems: General: No recent weight changes, no fever, no sleep disturbances Respiratory: No cough, no shortness of air, no recurring pulmonary infections Cardiovascular/peripheral vascular: No chest pain, no palpitations, no edema, no shortness of breath Gastrointestinal: No new onset incontinence, normal bowel movements reported Genitourinary: No new onset incontinence Musculoskeletal: Upper back pain Psychiatric: [Normal mood/affect] Neurological: [Denies weakness in extremities], [denies balance issues] Objective:: Physical Exam: General: Alert and oriented x3, no acute distress, pleasant and cooperative Lungs: Respirations even and unlabored, symmetrical chest expansion Eyes: PERRL Musculoskeletal: Flexion and extension of cervical [spine] somewhat guarded secondary to pain, [antalgic gait noted] Neurological: Speech clear, no gross sensory deficit Assessment:: Degenerative disc disease of cervical and lumbar spine multilevels with cervical and lumbar radiculopathy symptoms, osteoarthritis, Paget's disease of the bone, myofascial pain of bilateral cervical paraspinous and trapezius muscles, bilateral sacroiliitis Plan:: Patient continues to experience significant pain in his upper back. Patient did have limited range of motion of his cervical spine during today's visit. At her previous visit we had talked about scheduling him for a cervical epidural however due to miscommunications this visit was canceled. I have discussed with the patient that he will likely benefit from these injections. Risk and benefits were discussed with the patient. He would like to proceed forward with this plan of care. Patient is on Eliquis and has gotten cardiac approval to come off this medication prior to this injection. We will schedule the patient for a SHERLEY C6-C7. At this time the patient does not need refills on his tramadol. Patient has been instructed to contact the clinic with any concerns before the next appointment. Dr. Meza has reviewed this note and agrees with this plan of care. This note was dictated using voice recognition software and make contain errors or omissions. [facility] Disclaimer: The information contained in this section may have been updated after the patient was seen, as this information can be updated by other users. Medical History Abnormal cardiovascular stress test Abnormal electrocardiography Atypical angina Bloating CAD (coronary artery disease) Gastroesophageal reflux disease WILIAM (obstructive sleep apnea)
== END ==
PROVIDERS: PCP Internal Medicine; Visit Provider Nurse Practitioner Family
DX: M50.123 Cervical disc disorder at C6-C7 level with radiculopathy (principal); M51.16 Intervertebral disc disorders with radiculopathy, lumbar region; M19.90 Unspecified osteoarthritis, unspecified site; M88.9 Osteitis deformans of unspecified bone; M46.1 Sacroiliitis, not elsewhere classified; M79.18 Myalgia, other site
CPT/HCPCS: 99212; G0463

== ENCOUNTER 2022-02-27 09:00 | Day surgery (SDC) | payer MEDICARE, OTHER, SELFPAY ==
[2022-02-27 09:15] VITALS: BP 144/96; PULSE 84; RESP 18; TEMP 36.4; O2SAT 98; BMI 23.8
[2022-02-27 09:31] VITALS: BP 158/98; PULSE 95; RESP 18; O2SAT 97
[2022-02-27 09:33] VITALS: BP 158/98; PULSE 95; RESP 18; O2SAT 97
[2022-02-27 09:41] VITALS: BP 142/91; PULSE 90; RESP 18; O2SAT 98
--- NOTE | 2022-02-27 12:38 | P.PCN_ITS ---
Procedure Date: 02/27/22 Time: 12:30 Anesthesiologist:: Roman Krishnamurthy CRNA Complications:: None Pre-procedure Diagnosis:: Degenerative disease cervical spine multilevels. Cervical radiculopathy Post-procedure Diagnosis:: Same. Indications for Procedure:: Patient is a pleasant 76-year-old male that comes our clinic today for a repeat cervical epidural steroid injection. He had significant improvement terms of his cervical neck pain as well as bilateral arm radicular symptoms. Patient rates his cervical neck pain 09/17 Procedure Details:: Procedure:Cervical epidural steroid injection Informed consent was obtained and the risks and benefits of the procedure were explained to the patient. The patient was taken to the procedure room and noninvasive monitors placed, including noninvasive blood pressure cuff and pulse oximeter. The neck was prepped using Chloraprep as a cleansing solution. The C6- C7 interspace was viewed using fluroscopy. The skin and subcutaneous tissues were anesthetized using lidocaine 1.5% and a 25-gauge needle. After this an 18- gauge Touhy epidural needle was placed into the C6-C7 interspace under fluroscopy guidance and advanced using loss of resistance to air until the epidural space was encountered. After confirmation of needle placement in the epidural space using contrast dye, a solution containing normal saline, 2 mL and Depo-Medrol 80 mg was incrementally injected into the cervical epidural space.~ The patient tolerated the procedure well with no complications. The patient was observed in the Pain Clinic and then discharged home neurologically intact. Plan and Disposition:: Patient was discharged without incident
== END 2022-02-27 09:41 | disposition home or self-care (01) ==
LOC: SC.PAINP 09:00
PROVIDERS: PCP Internal Medicine; Visit Provider Nurse Anesthetist, Certified Registered
DX: M50.123 Cervical disc disorder at C6-C7 level with radiculopathy (principal)
CPT/HCPCS: 62321; J1040; Q9966

== ENCOUNTER → 2022-03-26 11:40 | Outpatient (POV) | payer MEDICARE, OTHER, SELFPAY ==
[2022-03-26 12:02] VITALS: BP 128/80; PULSE 72; RESP 18; O2SAT 98; BMI 23.7
--- NOTE | 2022-03-26 12:43 | EXP.PAIN.SOA ---
[facility] Pain Management SOAP Note Subjective:: Patient is a pleasant 76-year-old male who presents today for follow-up of cervical epidural at C6-C7 on 02/27/2022. We are currently treating the patient for degenerative disc disease of cervical and lumbar spine with cervical and lumbar radiculopathy symptoms, osteoarthritis, Paget's disease of the bone, myofascial pain of bilateral cervical paraspinous and trapezius muscles, bilateral sacroiliitis. Patient states he has had at least 75% improvement in his neck pain following this injection and feels like it still continuing to provide relief. Today he does rate his pain a 3 out of 10. Patient states his pain is primarily in his lower lumbar muscles on both sides as well as his right trapezius muscles. Patient denies any recent falls however he states he has had them in the past. He states he frequently stumbles over his feet due to his neuropathy. Patient is seen podiatry and states he has falling arches which affect his walking. Patient has been prescribed compounding cream in the past that he states does give significant relief. Patient does use wexm-dfy-[id number] Tylenol and ibuprofen with additional relief. Patient is currently prescribed gabapentin 100 mg 3 times a day and Percocet 5 mg from his primary care doctor. Patient denies any side effects from these medications. He states these medications do help with some of his pain symptoms. Patient does occasionally use a cane for ambulation. His Reji is [id number]. Its been reviewed and appropriate. Review of Systems: General: No recent weight changes, no fever, no sleep disturbances Respiratory: No cough, no shortness of air, no recurring pulmonary infections Cardiovascular/peripheral vascular: No chest pain, no palpitations, no edema, no shortness of breath Gastrointestinal: No new onset incontinence, normal bowel movements reported Genitourinary: No new onset incontinence Musculoskeletal: Right shoulder pain, low back pain Psychiatric: [Normal mood/affect] Neurological: [Denies weakness in extremities], [denies balance issues] Objective:: Physical Exam: General: Alert and oriented x3, no acute distress, pleasant and cooperative Lungs: Respirations even and unlabored, symmetrical chest expansion Eyes: PERRL Musculoskeletal: Flexion and extension of lumbar [spine] somewhat guarded secondary to pain, [antalgic gait noted] Neurological: Speech clear, no gross sensory deficit ORT score updated with low risk Assessment:: Degenerative disc disease of cervical and lumbar spine multilevel with cervical and lumbar radiculopathy symptoms, osteoarthritis, Paget's disease of the bone, myofascial pain of bilateral cervical paraspinous and trapezius muscles and bilateral lumbar paraspinous muscles, bilateral sacroiliitis Plan:: Patient has had significant improvement of his neck pain symptoms following his cervical epidural however he is experiencing significant pain at his right shoulder and lower lumbar muscles. Patient did have limited range of motion of his lumbar spine during today's visit. I have discussed with the patient that he may benefit from trigger point injections at his bilateral lumbar paraspinous and right trapezius muscles. Risk and benefits were discussed with the patient. He would like to proceed forward with this plan of care. We will schedule him for TPI of bilateral lumbar paraspinous and right trapezius muscles. Patient has been instructed to contact the clinic with any concerns before the next appointment. Dr. Meza has reviewed this note and agrees with this plan of care. This note was dictated using voice recognition software and make contain errors or omissions. [facility] Disclaimer: The information contained in this section may have been updated after the patient was seen, as this information can be updated by other users. Medical History Abnormal cardiovascular stress ishan
== END | disposition home or self-care (01) ==
PROVIDERS: PCP Internal Medicine; Visit Provider Nurse Practitioner Family
DX: M51.16 Intervertebral disc disorders with radiculopathy, lumbar region (principal); M50.123 Cervical disc disorder at C6-C7 level with radiculopathy; M46.1 Sacroiliitis, not elsewhere classified; M79.10 Myalgia, unspecified site; M88.9 Osteitis deformans of unspecified bone
CPT/HCPCS: 99212; G0463

== ENCOUNTER 2022-04-24 07:29 | Day surgery (SDC) | payer MEDICARE, OTHER, SELFPAY ==
[2022-04-19 14:00] VITALS: BMI 25.0
[2022-04-24] VITALS (7 sets, daily range): BP systolic 134–147; BP diastolic 72–92; PULSE 62–73; RESP 16–18; TEMP 36.3–36.4; O2SAT 93–98
== END 2022-04-24 10:16 | disposition home or self-care (01) ==
PROVIDERS: PCP Internal Medicine; Visit Provider Ophthalmology
DX: H25.813 Combined forms of age-related cataract, bilateral (principal)
CPT/HCPCS: 66984; V2632

== ENCOUNTER 2022-05-08 08:22 | Day surgery (SDC) | payer MEDICARE, OTHER, SELFPAY ==
[2022-05-07 12:23] VITALS: BMI 24.0
[2022-05-08] VITALS (7 sets, daily range): BP systolic 0–158; BP diastolic 0–93; PULSE 0–94; RESP 0–18; TEMP 36.5–36.7; O2SAT 0–99
== END 2022-05-08 10:18 | disposition home or self-care (01) ==
PROVIDERS: PCP Internal Medicine; Visit Provider Ophthalmology
DX: H25.813 Combined forms of age-related cataract, bilateral (principal); Z79.899 Other long term (current) drug therapy
CPT/HCPCS: 66984; 99212; G0463; V2632

== ENCOUNTER → 2022-05-08 13:43 | Outpatient (POV) | payer MEDICARE, OTHER, SELFPAY ==
[2022-05-08 15:09] VITALS: BP 140/86; PULSE 68; RESP 20; BMI 23.8
--- NOTE | 2022-05-08 16:53 | EXP.PAIN.SOA ---
[facility] Pain Management SOAP Note Subjective:: Patient is a pleasant 76-year-old male who presents today for follow-up and medication refill. We are currently treating the patient for degenerative disc disease of cervical and lumbar spine with cervical and lumbar radiculopathy symptoms, osteoarthritis, Paget's disease of the bone, myofascial pain of bilateral cervical paraspinous and trapezius muscles, bilateral sacroiliitis. Today he rates his pain a 7 out of 10. Patient states he has had 2 falls from her last visit however denies any significant trauma or injury from them. he states he falls due to frequently stumbling over his own feet due to his neuropathy and falling arches. Patient does state he is starting to have increased pain up around his neck with radiating symptoms into his bilateral shoulders as well as increased headaches. He also states that he is having some occasional pain in his hip along the right side however at this time his neck is bothering him worse. Patient has had multiple injections in the past including cervical epidurals and trigger point injections that provided significant relief of upwards of 75%. Patient does continue to see podiatry. He does use wbml-zqy-[id number] Tylenol and ibuprofen with some improvement. He is currently managed with gabapentin 100 mg 3 times a day and tramadol 50 mg daily from our office. Patient denies any side effects from these medications. He states they do help treat his symptoms. He is requesting a refill on his tramadol. Patient does use a cane for additional help with ambulation. His Reji is [id number]. Its been reviewed and appropriate. Review of Systems: General: No recent weight changes, no fever, no sleep disturbances Respiratory: No cough, no shortness of air, no recurring pulmonary infections Cardiovascular/peripheral vascular: No chest pain, no palpitations, no edema, no shortness of breath Gastrointestinal: No new onset incontinence, normal bowel movements reported Genitourinary: No new onset incontinence Musculoskeletal: Neck pain, shoulder pain Psychiatric: [Normal mood/affect] Neurological: [Denies weakness in extremities], [denies balance issues] Objective:: Physical Exam: General: Alert and oriented x3, no acute distress, pleasant and cooperative Lungs: Respirations even and unlabored, symmetrical chest expansion Eyes: PERRL Musculoskeletal: Flexion and extension of cervical [spine] somewhat guarded secondary to pain, [antalgic gait noted] extreme point tenderness along bilateral cervical paraspinous, bilateral trapezius and bilateral thoracic paraspinous muscles Neurological: Speech clear, no gross sensory deficit Assessment:: Degenerative disc disease of cervical and lumbar spine with cervical and lumbar radiculopathy symptoms, osteoarthritis, Paget's disease of the bone, myofascial pain of bilateral cervical paraspinous, trapezius muscles and thoracic paraspinous muscles, sacroiliitis, right hip pain Plan:: Patient is experiencing significant pain in his neck with radiating symptoms into his bilateral shoulders. Patient did have limited range of motion of his cervical spine along with extreme point tenderness at his bilateral cervical paraspinous, trapezius and thoracic paraspinous muscles during today's visit. I have discussed with the patient that he may benefit from trigger point injections at these locations. Risk and benefits were discussed with the patient and he would like to proceed forward with this plan of care. We will refill his tramadol 50 mg and increase it to twice daily. Patient will be scheduled for TPI bilateral cervical paraspinous, bilateral trapezius and bilateral thoracic paraspinous muscles. Patient has been instructed to contact the clinic with any concerns before the next appointment. Dr. Meza has reviewed this note and agrees with this plan of care. This note was dictated using voice recognition software and make contain errors or omissions. [facility]
== END | disposition home or self-care (01) ==
PROVIDERS: PCP Internal Medicine; Visit Provider Nurse Practitioner Family
DX: M50.10 Cervical disc disorder with radiculopathy, unspecified cervical region (principal); M51.16 Intervertebral disc disorders with radiculopathy, lumbar region; M19.90 Unspecified osteoarthritis, unspecified site; M46.1 Sacroiliitis, not elsewhere classified; M79.18 Myalgia, other site; M25.551 Pain in right hip; M88.9 Osteitis deformans of unspecified bone
CPT/HCPCS: 99212; G0463

== ENCOUNTER 2022-05-22 10:37 | Day surgery (SDC) | payer MEDICARE, OTHER, SELFPAY ==
[2022-05-22 11:13] VITALS: BP 127/81; PULSE 83; RESP 18; TEMP 36.4; O2SAT 97; BMI 25.0
[2022-05-22 11:38] VITALS: BP 135/90; PULSE 84; RESP 18; O2SAT 97
--- NOTE | 2022-05-22 11:39 | EXP.PAIN.PRO ---
Procedure Date: 05/22/22 Time: 10:30 Anesthesiologist:: Roman Krishnamurthy CRNA Complications:: None Pre-procedure Diagnosis:: Myofascial pain bilateral posterior paraspinous muscles as well as bilateral trapezius muscles. Post-procedure Diagnosis:: Same. Indications for Procedure:: Patient is a very pleasant 76-year-old male that comes our clinic today for trigger point injections bilateral posterior cervical paraspinous muscle as well as bilateral trapezius muscles. He rates his pain 7/10. He describes the pain in these areas as knots in his muscles. Procedure Details:: Details of the procedure were explained to the patient. The patient taken to procedure room placed in the sitting position. The area over the posterior cervical spine was cleaned using chlorhexidine. As well as bilateral trapezius muscles. injections in the low cervical bilateral paraspinous muscle was given using a mixture of of 1% lidocaine and 0.25% Marcaine and 40 mg of Depo-Medrol. 2 cc of the mixture was injected after negative aspiration. Both trapezius muscles was injected with the same solution 2 separate areas each trapezius muscle with 3 cc. Patient tolerated procedure without difficulty. There are no complications Plan and Disposition:: Patient was discharged without incident.
== END 2022-05-22 11:38 | disposition home or self-care (01) ==
PROVIDERS: PCP Internal Medicine; Visit Provider Nurse Anesthetist, Certified Registered
DX: M79.18 Myalgia, other site (principal)
CPT/HCPCS: 20552; J1040

== ENCOUNTER → 2022-05-22 14:40 | Outpatient (POV) | payer MEDICARE, OTHER, SELFPAY | PROVIDERS: Visit Provider Dermatology | DX: Z00.00 Encounter for general adult medical examination without abnormal findings (principal) ==

== ENCOUNTER → 2022-06-08 10:20 | Outpatient (POV) | payer MEDICARE, OTHER, SELFPAY ==
--- NOTE | 2022-06-08 10:29 | EXP.PAIN.SOA ---
[facility] Pain Management SOAP Note Subjective:: Patient is a pleasant 77-year-old male who presents today for follow-up of trigger point injections at bilateral posterior paraspinous muscles and bilateral trapezius muscles on 05/22/2022. We are currently treating the patient for degenerative disc disease of cervical and lumbar spine with cervical and lumbar radiculopathy symptoms, osteoarthritis, Paget's disease of the bone, myofascial pain of bilateral cervical paraspinous, trapezius muscles and bilateral sacroiliitis. Today he rates his pain a 6 out of 10. Patient denies any new trauma or injury. He states that he did get some improvement of upwards of 30 to 40% relief following these injections however his prior epidural did provide more relief. He does still complain of pain in and around his left shoulder and states he has had tingling sensations over the last month that present with certain movements. He does state overall his pain is much more tolerable prior to the injections. He has had multiple injections in the past that provided significant relief. He does currently see podiatry and was even seen by Ortho for plantar fasciitis. He states at the last visit they stated if it got worse to come back and that they would try injections. Patient does use lkev-qqy-fpeicqg Tylenol and ibuprofen with some improvement along with gabapentin 100 mg 3 times a day and tramadol 50 mg a day from our office. Patient is also prescribed tizanidine 4 mg daily. Patient denies any side effects from these medications. His Reji is [id number]. Its been reviewed and appropriate. Review of Systems: General: No recent weight changes, no fever, no sleep disturbances Respiratory: No cough, no shortness of air, no recurring pulmonary infections Cardiovascular/peripheral vascular: No chest pain, no palpitations, no edema, no shortness of breath Gastrointestinal: No new onset incontinence, normal bowel movements reported Genitourinary: No new onset incontinence Musculoskeletal: Left shoulder pain Psychiatric: [Normal mood/affect] Neurological: [Denies weakness in extremities], [denies balance issues] Objective:: Physical Exam: General: Alert and oriented x3, no acute distress, pleasant and cooperative Lungs: Respirations even and unlabored, symmetrical chest expansion Eyes: PERRL Musculoskeletal: Flexion and extension of cervical [spine] somewhat guarded secondary to pain, [antalgic gait noted] point tenderness along left thoracic paraspinous muscles Neurological: Speech clear, no gross sensory deficit Assessment:: Degenerative disc disease of cervical and lumbar spine with cervical and lumbar radiculopathy symptoms, osteoarthritis, Paget's disease of bone, myofascial pain of bilateral cervical paraspinous, bilateral trapezius, left thoracic paraspinous muscles and bilateral sacroiliitis Plan:: Patient is experiencing significant pain and tingling at his left shoulder with limited range of motion. Patient did have point tenderness noted at his left thoracic paraspinous muscles. I have discussed with the patient that he may benefit from trigger point injections at this location. Risk and benefits were discussed with the patient and he would like to proceed forward with this plan of care. I will also refill his tramadol 50 mg daily and gabapentin 100 mg 3 times a day and provide a 1 month supply of this medication. We will schedule him for trigger point injections of his left thoracic paraspinous. Patient has been instructed to contact the clinic with any concerns before the next appointment. Dr. Meza has reviewed this note and agrees with this plan of care. This note was dictated using voice recognition software and make contain errors or omissions. [facility] Disclaimer: The information contained in this section may have been updated after the patient was seen, as this information can be updated by other users. Medical History (Reviewed 05/22/22 @ 11:14 by Kayla Vale
[2022-06-08 10:30] VITALS: BP 114/78; PULSE 81; RESP 18; O2SAT 98; BMI 23.6
== END | disposition home or self-care (01) ==
PROVIDERS: PCP Internal Medicine; Visit Provider Nurse Practitioner Family
DX: M51.16 Intervertebral disc disorders with radiculopathy, lumbar region (principal); M50.10 Cervical disc disorder with radiculopathy, unspecified cervical region; M46.1 Sacroiliitis, not elsewhere classified; M79.18 Myalgia, other site
CPT/HCPCS: 99212; G0463

== ENCOUNTER 2022-06-12 09:45 | Day surgery (SDC) | payer MEDICARE, OTHER, SELFPAY ==
[2022-06-12 10:03] VITALS: BP 123/67; PULSE 69; RESP 18; TEMP 36.3; O2SAT 97; BMI 25.1
[2022-06-12 10:22] VITALS: BP 139/82; PULSE 86; RESP 18; O2SAT 98
[2022-06-12 10:23] VITALS: BP 139/82; PULSE 86; RESP 18; O2SAT 97
[2022-06-12 10:26] VITALS: BP 133/82; PULSE 81; RESP 18; TEMP 36.3; O2SAT 98
--- NOTE | 2022-06-12 10:28 | EXP.PAIN.PRO ---
Procedure Date: 06/12/22 Time: 10:25 Anesthesiologist:: Roman Krishnamurthy CRNA Complications:: None Pre-procedure Diagnosis:: Myofascial pain left trapezius. Post-procedure Diagnosis:: Same. Indications for Procedure:: Very pleasant 77-year-old male its been in our clinic before for trigger point injections of the thoracolumbar paraspinous muscles. Thoracic paraspinous muscles. Trapezius muscles. Today presents with left trapezius muscle spasm. He rates his pain 7/10. Procedure Details:: Details of the procedure explained to the patient. The patient taken procedure room placed in the sitting position. The area over the left trapezius was cleaned using chlorhexidine as a cleansing solution. Using a 10 cc solution of 0.25% Marcaine +1% lidocaine and 40 mg of Depo-Medrol. A total of 8 mL of the solution was injected through a 25-gauge needle after negative aspiration in 3 separate areas of the left trapezius muscle. Patient tolerated procedure without difficulty. There were no complications Plan and Disposition:: Patient was discharged without incident.
== END 2022-06-12 10:28 | disposition home or self-care (01) ==
PROVIDERS: PCP Internal Medicine; Visit Provider Nurse Anesthetist, Certified Registered
DX: M79.18 Myalgia, other site (principal)
CPT/HCPCS: 20552; J1040

== ENCOUNTER → 2022-06-29 10:16 | Outpatient (POV) | payer MEDICARE, OTHER, SELFPAY ==
[2022-06-29 10:50] VITALS: BP 137/90; PULSE 82; RESP 18; O2SAT 96; BMI 24.9
--- NOTE | 2022-06-29 12:14 | EXP.PAIN.SOA ---
[facility] Pain Management SOAP Note Subjective:: This patient is a pleasant 77-year-old male that comes our clinic today with complaint of cervical neck pain that he describes as constant, dull, aching. Patient also complains of bilateral arm radicular symptoms. Patient has difficulty with flexion, extension, left and right rotation of the cervical spine. Patient had MRI of the cervical spine 2018 showing multilevel disc bulge. Severe spinal stenosis cervical spine. Patient states today he did see a neurosurgeon regarding his neck at that time in 2018 and the surgeon told him he would not be able to improve his situation with surgery. I discussed with the patient today regarding his symptoms. Treatment options. I think it would be best to repeat the MRI of the cervical spine. Patient states he had a cervical epidural in the past with significant improvement lasting 3 to 4 months. Patient is recently status post trigger point injections thoracic paraspinous muscles and bilateral trapezius muscles. He reports minimal relief. He rates his pain today 8/10 Objective:: Patient is awake alert [place] x3. In no acute distress. Flexion-extension cervical spine very guarded secondary to pain. Deep tendon reflexes upper lower extremities normal. Motor strength upper lower extremities normal. There is no gross sensory deficit. Gait is normal Assessment:: Degenerative disc disease cervical spine multilevels. Multilevel disc bulge cervical spine. Cervical spinal stenosis. Cervical radiculopathy Plan:: We will repeat the patient's cervical MRI to further discern pathology. Patient will return [facility]AREN to review the results of the cervical MRI. Patient's Reji has been reviewed #[id number]. It is appropriate. Patient is taking gabapentin 100 mg 1 p.o. 3 times daily from his PCP. We have written him tramadol 50 mg 1 p.o. 3 times daily in the past. [facility] Disclaimer: The information contained in this section may have been updated after the patient was seen, as this information can be updated by other users. Medical History Abnormal cardiovascular stress test Abnormal electrocardiography Allergies Arthritis Atrial fibrillation Atypical angina Bloating CAD (coronary artery disease) Depression Gastroesophageal reflux disease History of cataract History of COVID-19 History of gastroesophageal reflux (GERD) Hypertension WILIAM (obstructive sleep apnea) Overactive bladder Rosacea Skin cancer Surgical History H/O hemorrhoidectomy History of bladder surgery History of cataract surgery Family History Other No significant family history Social History Smoking Status: Never smoker second hand exposure: No alcohol intake: current counseling provided: none substance use type: denies use current occupational status: retired Travel in the last 8 weeks: None household members: other housing: house current occupation: retired current occupational exposures/hazards: No caffeine: Yes
== END ==
PROVIDERS: PCP Internal Medicine; Visit Provider Nurse Anesthetist, Certified Registered
DX: M50.10 Cervical disc disorder with radiculopathy, unspecified cervical region (principal); M48.02 Spinal stenosis, cervical region
CPT/HCPCS: 99212; G0463

== ENCOUNTER → 2022-07-06 16:52 | Outpatient (CLI) | payer MEDICARE, OTHER, SELFPAY ==
--- NOTE | 2022-07-06 16:56 | MR_ITS ---
PROCEDURE INFORMATION: Exam: MR Cervical Spine Without Contrast Exam date and time: 07/06/2022 5:20 PM Age: 77 years old Clinical indication: Neck pain; Additional info: Neck pain. Stiffness in neck. Right arm numbness TECHNIQUE: Imaging protocol: Magnetic resonance imaging of the cervical spine without contrast. COMPARISON: [facility] CT cervical spine wo con 01/15/2018 1:33 PM FINDINGS: Bones/joints: Allowing for differences in technique/modality similar appearance of the spine compared to CT 01/15/2018. Markedly abnormal appearance C5 through T1 with complete involvement of anterior and posterior elements. These levels appear fused and very heterogeneous with trabecular thickening and lytic foci. The vertebral bodies are expanded with grossly abnormal architecture. Findings may represent fibrous dysplasia or Paget's disease and appear similar to previous. Spondylosis which is most advanced and severe at C3-C4, C4-C5 and T1-T2. Exaggerated kyphotic curvature centered about the C7-T1 level. Mild scoliosis. Disc bulge is noted at C2-C3, C3-C4 and C4-C5. Mild disc bulge also noted in the upper thoracic region. Disc bulge and thickening to flavum causes moderate central spinal stenosis at C3-C4 mild central spinal stenosis noted at C2-C3 and C4-C5. Neural foramina are suboptimally evaluated. Neural foraminal stenosis is estimated as follows: Moderate to severe bilaterally at C3-C4, moderate to severe on the left and moderate on the right at C4-C5. Spinal cord: Moderate T2 signal within the right-sided spinal cord at the C3 level measuring up to 5 mm in diameter (image 7, series 5). Question mild edema or encephalomalacia which extends almost the length of the C3 vertebral body. Vasculature: Expected flow voids in the vertebral arteries. Soft tissues: Unremarkable. IMPRESSION: 1. Allowing for differences in technique/modality similar appearance of the cervical spine compared to CT 01/15/2018. Markedly abnormal appearance C5 through T1 with complete involvement of anterior and posterior elements. Findings may represent fibrous dysplasia or Paget's disease. 2. Moderate T2 signal within the right-sided spinal cord at the C3 level measuring up to 5 mm in diameter (image 7, series 5). Question mild edema or encephalomalacia which extends almost the length of the C3 vertebral body. 3. Central spinal stenosis which is most advanced and moderate severity at C3-C4. 4. Multilevel neural foraminal stenosis which appears most advanced at C3-C4 and C4-C5. 5. Other findings as detailed in the body of the report.
== END ==
PROVIDERS: PCP Internal Medicine; Visit Provider Nurse Anesthetist, Certified Registered
DX: M54.2 Cervicalgia (principal)
CPT/HCPCS: 72141; 76376

== ENCOUNTER → 2022-07-10 17:03 | Outpatient (CLI) | payer MEDICARE, OTHER, SELFPAY ==
[2022-07-10 17:38] LABS: Basophils # 0.1 K/mm3 (0-0.2); Basophils % 0.6 % (0.1-2.0); Eosinophils # 0.2 K/mm3 (0.0-0.4); Eosinophils % 2.1 % (0.1-12.0); Hematocrit 51.1 % (42.0-52.0); Hemoglobin 16.3 g/dL (14.1-18.0); Lymphocytes # 2.3 K/mm3 (0.7-4.5); Lymphocytes % 28.3 % (10-50); Mean Corpuscular HGB Conc 31.8 g/dL (31.8-35.4); Mean Corpuscular Hemoglobin 30.8 pg (27.0-31.2); Mean Corpuscular Volume 96.7 fl (80-94); Mean Platelet Volume 10.4 fl (7.4-10.4); Monocytes # 0.8 K/mm3 (0.1-1.0); Monocytes % 10.2 % (1.7-9.3); Neutrophils # 4.8 K/mm3 (1.8-7.8); Neutrophils % 58.8 % (37.0-80.0); Platelet Count 140 K/mm3 (142-424); Red Blood Count 5.29 M/mm3 (4.60-6.20); Red Cell Distribution Width 14.4 % (11.5-17.5); White Blood Count 8.2 K/mm3 (4.8-10.8)
[2022-07-10 17:45] LABS: Chloride 97 mmol/L (98-107); Potassium 5.2 mmoL/L (3.5-5.1); Sodium 138 mmol/L (136-145)
[2022-07-10 17:47] LABS: Alanine Aminotransferase 19 U/L (12-78); Aspartate Amino Transferase 27 U/L (17-59); Blood Urea Nitrogen 23 mg/dl (9-20); Estimated Glomerular Filt Rate 58 ml/min (>60); GFR (African American) 71 ML/MIN (>60)
[2022-07-10 17:48] LABS: Albumin Level 4.5 g/dl (3.5-5.0); Albumin/Globulin Ratio 1.7 (1.1-1.8); Alkaline Phosphatase 51 U/L (38-126); Anion Gap 17.2 mEq/L (5-15); Bilirubin,Total 0.6 mg/dl (0.2-1.3); Calcium 9.8 mg/dl (8.4-10.2); Carbon Dioxide 29 mmol/L (22.0-30.0); Chol/HDL Ratio 3.6 (1-3.5); Cholesterol 207 mg/dl (140-200); Globulin 2.6 g/dL (1.3-3.2); Glucose 87 mg/dl (74-100); HDL Cholesterol 57 mg/dl (40-60); Phosphorous 3.6 mg/dl (2.5-4.5); Total Protein,Serum 7.1 g/dl (6.3-8.2); Triglycerides 190 mg/dl (30-150); VLDL Cholesterol 38 mg/dL (0-40)
[2022-07-10 17:59] LABS: Direct LDL Cholesterol 119.91 mg/dL (100-129)
[2022-07-10 18:05] LABS: 25-OH Vitamin D, Total 43.2 ng/mL (30-100)
[2022-07-10 18:18] LABS: Prostate Specific Ag Screen 3.1 ng/ml (0.0-4.0)
== END ==
PROVIDERS: PCP Internal Medicine; Visit Provider Internal Medicine
DX: D75.1 Secondary polycythemia (principal); I10 Essential (primary) hypertension; E78.5 Hyperlipidemia, unspecified; E55.9 Vitamin D deficiency, unspecified; I48.91 Unspecified atrial fibrillation; M88.1 Osteitis deformans of vertebrae; M47.22 Other spondylosis with radiculopathy, cervical region; Z12.5 Encounter for screening for malignant neoplasm of prostate
CPT/HCPCS: 80053; 80061; 82306; 84100; 85025; G0103

== ENCOUNTER → 2022-07-16 13:27 | Outpatient (POV) | payer MEDICARE, OTHER, SELFPAY ==
[2022-07-16 13:38] VITALS: BP 121/76; PULSE 76; RESP 18; O2SAT 97; BMI 24.1
--- NOTE | 2022-07-16 13:41 | EXP.PAIN.SOA ---
[facility] Pain Management SOAP Note Subjective:: Patient is a pleasant 77-year-old male who presents today for follow-up of cervical MRI. We are currently treating the patient for degenerative disc disease of cervical and lumbar spine with cervical and lumbar radiculopathy symptoms, osteoarthritis, Paget's disease of the bone, myofascial pain of bilateral cervical paraspinous, trapezius muscles and bilateral sacroiliitis.? Today he rates his pain a 7 out of 10.? Patient denies any new trauma or injury.? He states he continues to have pain more predominant on his right side that runs along his neck into his right shoulder and down his arm. He does describe this as an aching, throbbing sensation with numbness and tingling into his fingers. He does state the pain interferes with his ability to perform activities of daily living such as cooking and cleaning. He cannot tolerate activities such as bending, lifting or twisting due to his worsening pain symptoms. He also states he continues to have pain along his mid to low back at the right side and it does go into his right hip. Patient states that he frequently stumbles due to thinking that his right leg is lifting up and moving with him however it is not. Patient states this has been going on for some time.? He has had multiple injections in the past that provided significant relief.? He states he continues to have better relief in his low back following his previous epidural. He states that his sharp pains did go away however he still has some pain midline that is tolerable. he does continue to use Tylenol and ibuprofen with some improvement along with gabapentin 100 mg 3 times a day from his primary care doctor. We prescribed him tizanidine 4 mg daily and tramadol 50 mg a day from our office.?Patient denies any side effects from these medications.? His Reji is [id number].? Its been reviewed and appropriate. Review of Systems: General: No recent weight changes, no fever, no sleep disturbances Respiratory: No cough, no shortness of air, no recurring pulmonary infections Cardiovascular/peripheral vascular: No chest pain, no palpitations, no edema, no shortness of breath Gastrointestinal: No new onset incontinence, normal bowel movements reported Genitourinary: No new onset incontinence Musculoskeletal: Neck pain, arm pain Psychiatric: [Normal mood/affect] Neurological: [Denies weakness in extremities], [denies balance issues] Objective:: Physical Exam: General: Alert and oriented x3, no acute distress, pleasant and cooperative Lungs: Respirations even and unlabored, symmetrical chest expansion Eyes: PERRL Musculoskeletal: Flexion and extension of cervical [spine] somewhat guarded secondary to pain, [antalgic gait noted] positive Kemps test Neurological: Speech clear, no gross sensory deficit PROCEDURE INFORMATION: Exam: MR Cervical Spine Without Contrast Exam date and time: 07/06/2022 5:20 PM Age: 77 years old Clinical indication: Neck pain; Additional info: Neck pain. Stiffness in neck. Right arm numbness TECHNIQUE: Imaging protocol: Magnetic resonance imaging of the cervical spine without contrast. COMPARISON: [facility] CT cervical spine wo con 01/15/2018 1:33 PM FINDINGS: Bones/joints: Allowing for differences in technique/modality similar appearance of the spine compared to CT 01/15/2018. Markedly abnormal appearance C5 through T1 with complete involvement of anterior and posterior elements. These levels appear fused and very heterogeneous with trabecular thickening and lytic foci. The vertebral bodies are expanded with grossly abnormal architecture. Findings may represent fibrous dysplasia or Paget's disease and appear similar to previous. Spondylosis which is most advanced and severe at C3-C4, C4-C5 and T1-T2. Exaggerated kyphotic curvature centered about the C7-T1 level. Mild scoliosis. Disc bulge is noted at C2-C3, C3-C4 and C4-C5. Mild disc bulge also noted in the upper thoracic region. Disc
== END | disposition home or self-care (01) ==
PROVIDERS: PCP Family Medicine; Visit Provider Nurse Practitioner Family
DX: M50.122 Cervical disc disorder at C5-C6 level with radiculopathy (principal); M19.90 Unspecified osteoarthritis, unspecified site; M79.18 Myalgia, other site; M47.22 Other spondylosis with radiculopathy, cervical region; M51.16 Intervertebral disc disorders with radiculopathy, lumbar region; M88.9 Osteitis deformans of unspecified bone
CPT/HCPCS: 99212; G0463

== ENCOUNTER → 2022-07-16 14:42 | Outpatient (CLI) | payer MEDICARE, OTHER, SELFPAY ==
[2022-07-16 16:01] LABS: Amphetamine/Metha Screen,Urine Negative ng/ml (<1000)
[2022-07-16 16:02] LABS: Barbiturates Screen,Urine Negative ng/ml (<200); Benzodiazepines Screen,Urine Negative ng/ml (<200)
[2022-07-16 16:03] LABS: Cannabinoid Screen,Urine Negative ng/ml (<50)
[2022-07-16 16:04] LABS: Cocaine Screen,Urine Negative ng/ml (<300); Methadone Screen,Urine Negative ng/ml (<300)
[2022-07-16 16:05] LABS: Opiate Screen,Urine Negative ng/ml (<300)
[2022-07-16 16:06] LABS: Phencyclidine Screen,Urine Negative ng/ml (<25)
[2022-07-23 21:13] LABS: Opiates Negative (Cutoff=100)
== END ==
PROVIDERS: PCP Internal Medicine; Visit Provider Nurse Practitioner Family
DX: Z79.891 Long term (current) use of opiate analgesic (principal)
CPT/HCPCS: 80305; 80361; 80365; 99212; G0463; G0480

== ENCOUNTER 2022-07-24 11:19 | Day surgery (SDC) | payer MEDICARE, OTHER, SELFPAY ==
[2022-07-24 11:29] VITALS: BP 123/94; PULSE 68; RESP 18; TEMP 36.8; O2SAT 98; BMI 24.1
[2022-07-24 11:39] VITALS: BP 181/99; PULSE 89; RESP 20; O2SAT 97
[2022-07-24 11:40] VITALS: BP 181/99; PULSE 89; RESP 20; O2SAT 97
--- NOTE | 2022-07-24 11:43 | P.PCN_ITS ---
Procedure Date: 07/24/22 Time: 11:35 Anesthesiologist:: Roman Krishnamurthy CRNA Complications:: None Pre-procedure Diagnosis:: Degenerative disc cervical spine multilevels. Cervical spinal stenosis. Cervical radiculopathy. Cervical facet arthropathy. Cervical spondylosis. Post-procedure Diagnosis:: Same. Indications for Procedure:: Patient is a very pleasant 77-year-old male that comes our clinic today for right cervical C3-4, C4-5, C5-6 facet block. Patient has chronic neck pain for several years. Patient has had neurosurgery consultation. No surgery was recommended. Patient has difficulty with flexion, extension, left and right rotation. His pain is significantly worse on the right. His pain includes the posterior cervical spine as well as right trapezius muscle. He rates his pain 8/10. Procedure Details:: Informed consent was obtained and the risk and benefits of the procedure was explained to the patient. Patient was taken to the procedure room where noninvasive monitors were placed, including noninvasive blood pressure cuff as well as pulse oximeter. The area over the posterior cervical spine was cleansed using chlorhexidine as a cleansing solution. I anesthetized the skin and subcutaneous tissues with 1% Lidocaine. I placed 25 -gauge spinal needles into the facet joint/ medial branches of right C3-4, C4-5, C5-6 on the right. Needle placement was confirmed with fluoroscopy. After confirmation of needle place ment, each site was injected with 1 mL of 1% lidocaine and 0.25 % Marcaine and 10 mg of Depo-Medrol. Patient tolerated the procedure without difficulty. There were no complications. Plan and Disposition:: Patient was discharged without incident.
[2022-07-24 11:50] VITALS: BP 139/78; PULSE 68; RESP 18; O2SAT 98
== END 2022-07-24 11:50 | disposition home or self-care (01) ==
PROVIDERS: PCP Internal Medicine; Visit Provider Nurse Anesthetist, Certified Registered
DX: M50.122 Cervical disc disorder at C5-C6 level with radiculopathy (principal); M48.02 Spinal stenosis, cervical region; M47.22 Other spondylosis with radiculopathy, cervical region
CPT/HCPCS: 62321; J1040; Q9966

== ENCOUNTER → 2022-08-15 10:34 | Outpatient (POV) | payer MEDICARE, OTHER, SELFPAY ==
--- NOTE | 2022-08-15 10:57 | EXP.PAIN.SOA ---
[facility] Pain Management SOAP Note Subjective:: Patient is a pleasant 77-year-old male who presents today for follow-up of right cervical facet block of C3-4, C4-5 and C5-6 on 07/24/2022. We are currently treating the patient for degenerative disc disease of cervical and lumbar spine with cervical and lumbar radiculopathy symptoms, cervical facet arthropathy, cervical spondylosis, osteoarthritis, Paget's disease of the bone, myofascial pain of bilateral cervical paraspinous, trapezius, and cervical and thoracic paraspinous muscles and bilateral sacroiliitis. Today he states that he has had some improvements with his cervical facet block however during that visit while he was getting up on the table he feels like he may have pulled a muscle. Patient is experiencing significant pain in and around his cervical and thoracic paraspinal muscles. He describes this as an aching, throbbing sensation that is worse with increased activity. He states it does interfere with his ability to perform activities of daily living. Patient does continue to do at home exercise and stretching on a daily basis and has been through multiple times of physical therapy over the years with some improvement. Patient is currently using Tylenol and ibuprofen along with his gabapentin 100 mg 3 times a day from a primary care doctor. He does get from our office tizanidine 4 mg at bedtime and tramadol 50 mg a day. Patient denies any side effects from these medications. He does take the tizanidine does help him sleep better at night with less pain when he gets up. He is requesting for an extended release tramadol if possible. He is [facility] and is [phone]. Its been reviewed and appropriate Review of Systems: General: No recent weight changes, no fever, no sleep disturbances Respiratory: No cough, no shortness of air, no recurring pulmonary infections Cardiovascular/peripheral vascular: No chest pain, no palpitations, no edema, no shortness of breath Gastrointestinal: No new onset incontinence, normal bowel movements reported Genitourinary: No new onset incontinence Musculoskeletal: Neck pain, mid back pain Psychiatric: [Normal mood/affect] Neurological: [Denies weakness in extremities], [denies balance issues] Objective:: Physical Exam: General: Alert and oriented x3, no acute distress, pleasant and cooperative Lungs: Respirations even and unlabored, symmetrical chest expansion Eyes: PERRL Musculoskeletal: Flexion and extension of cervical, thoracic [spine] somewhat guarded secondary to pain, [antalgic gait noted] point tenderness noted along right cervical paraspinous and right thoracic paraspinous muscles Neurological: Speech clear, no gross sensory deficit Assessment:: degenerative disc disease of cervical and lumbar spine with cervical and lumbar radiculopathy symptoms, cervical facet arthropathy, cervical spondylosis, osteoarthritis, Paget's disease of the bone, myofascial pain of bilateral cervical paraspinous, trapezius, and cervical and thoracic paraspinous muscles and bilateral sacroiliitis Plan:: Patient is experiencing worsening pain in his neck and mid back area along the right side with point tenderness noted along his cervical and thoracic paraspinous muscles. I have discussed with the patient that he may benefit from trigger point injections at this location however at this time he would like to wait. I will order the patient methocarbamol 500 mg twice daily for during the day and he is to continue to take his tizanidine 4 mg at night. I will send in a new prescription of tramadol 100 mg extended release daily and provide a 1 month supply of this medication. I have also discussed with the patient that in the future we may look at doing additional physical therapy. Patient will return to clinic in 1 month for reevaluation of symptoms, medication refill and follow-up. Patient has been instructed to contact the clinic with any concerns before the next appointment. Dr. Meza has reviewed
[2022-08-15 11:10] VITALS: BP 123/78; PULSE 71; RESP 18; O2SAT 97; BMI 24.0
== END | disposition home or self-care (01) ==
PROVIDERS: PCP Internal Medicine; Visit Provider Nurse Practitioner Family
DX: M51.16 Intervertebral disc disorders with radiculopathy, lumbar region (principal); M50.122 Cervical disc disorder at C5-C6 level with radiculopathy; M47.22 Other spondylosis with radiculopathy, cervical region; M19.90 Unspecified osteoarthritis, unspecified site; M46.1 Sacroiliitis, not elsewhere classified; M79.18 Myalgia, other site; M88.9 Osteitis deformans of unspecified bone
CPT/HCPCS: 99212; G0463

== ENCOUNTER → 2022-08-21 14:26 | Outpatient (POV) | payer MEDICARE, OTHER, SELFPAY | PROVIDERS: Visit Provider Dermatology | DX: Z00.00 Encounter for general adult medical examination without abnormal findings (principal) ==

== ENCOUNTER → 2022-08-29 15:45 | Outpatient (CLI) | payer MEDICARE, OTHER, SELFPAY ==
[2022-08-29 17:07] LABS: Anion Gap 15.7 mEq/L (5-15); Blood Urea Nitrogen 28 mg/dl (9-20); Calcium 9.3 mg/dl (8.4-10.2); Carbon Dioxide 28 mmol/L (22.0-30.0); Chloride 104 mmol/L (98-107); Estimated Glomerular Filt Rate 58 ml/min (>60); GFR (African American) 71 ML/MIN (>60); Glucose 97 mg/dl (74-100); Potassium 4.7 mmoL/L (3.5-5.1); Sodium 143 mmol/L (136-145)
== END ==
PROVIDERS: PCP Internal Medicine; Visit Provider Nurse Practitioner Family
DX: E78.2 Mixed hyperlipidemia (principal); I10 Essential (primary) hypertension; I25.10 Atherosclerotic heart disease of native coronary artery without angina pectoris; I48.20 Chronic atrial fibrillation, unspecified; N18.9 Chronic kidney disease, unspecified; R94.30 Abnormal result of cardiovascular function study, unspecified
CPT/HCPCS: 36415; 80048

== ENCOUNTER → 2022-09-13 14:07 | Outpatient (POV) | payer MEDICARE, OTHER, SELFPAY ==
--- NOTE | 2022-09-13 14:44 | EXP.PAIN.SOA ---
[facility] Pain Management SOAP Note Subjective:: Patient is a pleasant 77-year-old male who presents today for medication refill and follow-up. We are currently treating the patient for degenerative disc disease of cervical and lumbar spine with cervical and lumbar radiculopathy symptoms, cervical facet arthropathy, cervical spondylosis, osteoarthritis, Paget's disease of the bone, myofascial pain, sacroiliitis. Today he rates his pain a 6 out of 10. Patient states that he does have new pain in his right knee and believes he may have strained it while he was squatting down doing work. Patient states that it has slowly started to get better and does not think it is anything long-lasting. Patient does continue to have pain from his neck down to his lumbar spine. He denies any other new issues or changes to his pain. Patient states he has muscle relaxer of methocarbamol 500 mg twice a day that was prescribed at our last visit that he has not really taken except for 1 tablet. He is currently managed with tizanidine 4 mg at bedtime, and tramadol 100 mg extended release. Patient denies any side effects from these medications. His Reji is [id number]. Its been reviewed and appropriate. Review of Systems: General: No recent weight changes, no fever, no sleep disturbances Respiratory: No cough, no shortness of air, no recurring pulmonary infections Cardiovascular/peripheral vascular: No chest pain, no palpitations, no edema, no shortness of breath Gastrointestinal: No new onset incontinence, normal bowel movements reported Genitourinary: No new onset incontinence Musculoskeletal: Neck pain, low back pain Psychiatric: [Normal mood/affect] Neurological: [Denies weakness in extremities], [denies balance issues] Objective:: Physical Exam: General: Alert and oriented x3, no acute distress, pleasant and cooperative Lungs: Respirations even and unlabored, symmetrical chest expansion Eyes: PERRL Musculoskeletal: Flexion and extension of lumbar [spine] somewhat guarded secondary to pain, [antalgic gait noted] Neurological: Speech clear, no gross sensory deficit Assessment:: Degenerative disc disease of cervical and lumbar spine with cervical and lumbar radiculopathy symptoms, cervical facet arthropathy, cervical spondylosis, osteoarthritis, Paget's disease of the bone, myofascial pain, bilateral sacroiliitis Plan:: I have discussed with the patient that if he continues to have significant pain in his right knee that we can do additional imaging as well as injections. I will refill the patient's tramadol 100 mg extended release and tizanidine 4 mg at bedtime and provide a 1 month supply of these medications. I have reviewed over with him regarding the methocarbamol that he can take this medication during the day on an as-needed basis. At this time he does not need any additional refills on this medication. Patient will return to clinic in 1 month for reevaluation of symptoms and medication refill. Patient has been instructed to contact the clinic with any concerns before the next appointment. Dr. Meza has reviewed this note and agrees with this plan of care. This note was dictated using voice recognition software and make contain errors or omissions. [facility] Disclaimer: The information contained in this section may have been updated after the patient was seen, as this information can be updated by other users. Medical History Abnormal cardiovascular stress test Abnormal electrocardiography Allergies Arthritis Atrial fibrillation Atypical angina Bloating CAD (coronary artery disease) OCT 2020-Mild nonflow limiting coronary disease with preserved ejection fraction Mildly elevated LVEDP consistent with diastolic dysfunction Depression Gastroesophageal reflux disease History of cataract History of COVID-19 History of gastroesophageal reflux (GERD) Hypertension WILIAM (obstructive sleep apnea) Overactive nikole
[2022-09-13 15:54] VITALS: BP 122/76; PULSE 82; RESP 18; O2SAT 97; BMI 23.7
== END | disposition home or self-care (01) ==
PROVIDERS: PCP Internal Medicine; Visit Provider Nurse Practitioner Family
DX: M50.10 Cervical disc disorder with radiculopathy, unspecified cervical region (principal); M47.22 Other spondylosis with radiculopathy, cervical region; M51.16 Intervertebral disc disorders with radiculopathy, lumbar region; M25.561 Pain in right knee; M88.9 Osteitis deformans of unspecified bone; M79.10 Myalgia, unspecified site; M46.1 Sacroiliitis, not elsewhere classified
CPT/HCPCS: 99212; G0463

== ENCOUNTER → 2022-10-11 14:52 | Outpatient (POV) | payer MEDICARE, OTHER, SELFPAY ==
--- NOTE | 2022-10-11 14:59 | EXP.PAIN.SOA ---
[facility] Pain Management SOAP Note Subjective:: Patient is a pleasant 77-year-old male who presents today for medication refill and follow-up. We are currently treating the patient for degenerative disc disease of cervical and lumbar spine with cervical and lumbar radiculopathy symptoms, cervical facet arthropathy, cervical spondylosis, osteoarthritis, Paget's disease of the bone, myofascial pain, sacroiliitis. Today he rates his pain a 8 out of 10. Patient states he continues to have back pain including into his upper neck that feels like there is knots as well as all the way to his low back and radiating into his hip. Patient does describe this as an aching, throbbing sensation that is worse with increased activity. He also states he feels that the tensed up muscles that he is causing increased headaches. Patient does state the pain interferes with his ability perform activities of daily living such as cooking and cleaning. He has previously had cervical epidurals that did provide significant improvement lasting approximately 3 months patient states he has muscle relaxer of methocarbamol 500 mg twice a day that was prescribed at our last visit that he has not really taken except for 1 tablet. He is currently managed with tizanidine 4 mg at bedtime, and tramadol 100 mg extended release. Patient denies any side effects from these medications. His Reji is [id number]. Its been reviewed and appropriate. Review of Systems: General: No recent weight changes, no fever, no sleep disturbances Respiratory: No cough, no shortness of air, no recurring pulmonary infections Cardiovascular/peripheral vascular: No chest pain, no palpitations, no edema, no shortness of breath Gastrointestinal: No new onset incontinence, normal bowel movements reported Genitourinary: No new onset incontinence Musculoskeletal: Neck pain, low back pain Psychiatric: [Normal mood/affect] Neurological: [Denies weakness in extremities], [denies balance issues] Objective:: Physical Exam: General: Alert and oriented x3, no acute distress, pleasant and cooperative Lungs: Respirations even and unlabored, symmetrical chest expansion Eyes: PERRL Musculoskeletal: Flexion and extension of cervical [spine] somewhat guarded secondary to pain, [antalgic gait noted] Neurological: Speech clear, no gross sensory deficit Assessment:: Degenerative disc disease of cervical and lumbar spine with cervical and lumbar radiculopathy symptoms, cervical facet arthropathy, cervical spondylosis, osteoarthritis, Paget's disease of the bone, myofascial pain, sacroiliitis Plan:: Patient is experiencing significant pain in his neck with limited range of motion and radiating symptoms into his upper extremities. I have discussed with the patient that he may benefit from cervical epidural steroid injection. Risk and benefits were discussed with patient and he would like to proceed forward with this plan of care. Patient has previously had cervical epidurals that provided more than 75% improvement lasting approximately 3 months. Patient is currently on blood thinner that is written by Dr. Hampton's office. We will contact their office and confirm that he can come off this medication prior to this injection. I will refill the patient's tizanidine 4 mg at bedtime and tramadol 100 mg extended release daily and provide a 1 month supply of these medications. I will also send in a 2-week supply of methocarbamol 500 mg twice a day. Patient will be scheduled for a SHERLEY C4-C5. Patient has been advised of risks of oversedation with the prescribed medication. Narcan has been offered to the patient in the event of oversedation. Patient has been advised that a family member should also be educated regarding administration of Narcan. Patient has been instructed to contact the clinic with any concerns before the next appointment. Dr. Meza has reviewed this note and agrees with this plan of care. This note was dictated using voice recogni
[2022-10-11 15:38] VITALS: BP 172/99; PULSE 90; RESP 18; O2SAT 95; BMI 25.4
== END | disposition home or self-care (01) ==
PROVIDERS: Visit Provider Nurse Practitioner Family
DX: M50.10 Cervical disc disorder with radiculopathy, unspecified cervical region (principal); M47.22 Other spondylosis with radiculopathy, cervical region; M51.16 Intervertebral disc disorders with radiculopathy, lumbar region; M19.90 Unspecified osteoarthritis, unspecified site; M88.9 Osteitis deformans of unspecified bone; M79.10 Myalgia, unspecified site; M46.1 Sacroiliitis, not elsewhere classified
CPT/HCPCS: 99212; G0463

== ENCOUNTER 2022-11-02 13:51 | Day surgery (SDC) | payer MEDICARE, OTHER, SELFPAY ==
[2022-11-02 15:00] VITALS: BP 156/93; PULSE 83; RESP 20; TEMP 36.4; O2SAT 96; BMI 24.1
[2022-11-02 15:29] VITALS: BP 167/95; PULSE 90; RESP 18; RESP 19; O2SAT 95
[2022-11-02 15:50] VITALS: BP 150/91; PULSE 78; RESP 20; O2SAT 96
--- NOTE | 2022-11-02 16:44 | EXP.PAIN.PRO ---
Procedure Date: 11/02/22 Time: 16:44 Anesthesiologist:: Dante Meza MD Complications:: None Pre-procedure Diagnosis:: Degenerative disc disease of the cervical spine with cervical radiculopathy symptoms Post-procedure Diagnosis:: Same Indications for Procedure:: This patient is a pleasant 77-year-old white male who we are treating for neck pain with cervical radiculopathy symptoms. He has increasing pain in his neck with severe degenerative changes. He is also having headaches. We will do a cervical epidural steroid injection today to see if this helps with his pain symptoms. Procedure Details:: Cervical epidural steroid injection under fluoroscopy Informed consent was obtained and the risks and benefits of the procedure was explained to the patient. The patient was taken to the procedure room placed prone on the procedure table. The neck was prepped using ChloraPrep. The skin and subcutaneous tissues were anesthetized using lidocaine. I placed a 18-gauge epidural needle into the C5-C6 interspace and advanced using [id number] to air and fluoroscopic guidance. After confirmation of needle placement in the epidural space with dye, I injected 3 mL's lidocaine 1.5% and Depo-Medrol 80 mg. The patient tolerated the procedure well with no complications. Plan and Disposition:: Given the severity of the degenerative changes of his cervical spine he may be a candidate for intrathecal therapy. If this injection is not given any benefit we may discuss intrathecal therapy with this patient.
== END 2022-11-02 15:50 | disposition home or self-care (01) ==
PROVIDERS: PCP Internal Medicine; Visit Provider Nurse Anesthetist, Certified Registered
DX: M50.122 Cervical disc disorder at C5-C6 level with radiculopathy (principal); R51.9 Headache, unspecified
CPT/HCPCS: 62321; J1040; Q9966

== ENCOUNTER → 2022-11-21 13:54 | Outpatient (POV) | payer MEDICARE, OTHER, SELFPAY ==
--- NOTE | 2022-11-21 14:24 | EXP.PAIN.SOA ---
[facility] Pain Management SOAP Note Subjective:: Patient is a pleasant 77-year-old male who presents today for medication refill and follow-up of cervical epidural steroid injection C5-C6 on 11/02/2022. We are currently treating the patient for degenerative disc disease of cervical and lumbar spine with cervical and lumbar radiculopathy symptoms, cervical facet arthropathy, cervical spondylosis, osteoarthritis, Paget's disease of the bone, myofascial pain, sacroiliitis. Today he rates his pain a 7 out of 10. Patient denies any new trauma or injury. Patient states that he had approximately 40 to 50% improvement following this injection however it only lasted approximately 3 days and then returned back to his baseline. Patient does state that he has been having more pain up around the back of his head and also causing some additional headaches. Patient does state the pain can interfere with his ability perform activities of daily living such as cooking and cleaning. Patient is currently managed with tizanidine 4 mg at bedtime and tramadol 100 mg extended release. He denies any side effects from this medication. He is also prescribed gabapentin 100 mg 3 times a day from his primary care doctor. He does state that he does not really take anything for headaches. He states that he does do some at home neck traction and has thought about getting an additional device that he seen advertised that does the same thing but may be a little bit better. His Reji is [id number]. Its been reviewed and appropriate. Review of Systems: General: No recent weight changes, no fever, no sleep disturbances Respiratory: No cough, no shortness of air, no recurring pulmonary infections Cardiovascular/peripheral vascular: No chest pain, no palpitations, no edema, no shortness of breath Gastrointestinal: No new onset incontinence, normal bowel movements reported Genitourinary: No new onset incontinence Musculoskeletal: Occipital pain, headaches, neck pain Psychiatric: [Normal mood/affect] Neurological: [Denies weakness in extremities], [denies balance issues] Objective:: Physical Exam: General: Alert and oriented x3, no acute distress, pleasant and cooperative Lungs: Respirations even and unlabored, symmetrical chest expansion Eyes: PERRL Musculoskeletal: Flexion and extension of cervical [spine] somewhat guarded secondary to pain, [antalgic gait noted] Neurological: Speech clear, no gross sensory deficit Assessment:: Degenerative disc disease of cervical and lumbar spine with cervical and lumbar radiculopathy symptoms, cervical facet arthropathy, cervical spondylosis, osteoarthritis, Paget's disease of the bone, myofascial pain, sacroiliitis, occipital neuralgia, headache Plan:: Patient is experiencing worsening pain in the occipital region with increased headaches. Patient had limited range of motion of his cervical spine during today's visit. I have discussed with the patient that he may benefit from a occipital nerve block. Risk and benefits were explained to the patient and at this time he would like to wait. I have counseled the patient that he can call and schedule this procedure over the phone if he decides to between now and his next visit. I will refill the patient's tizanidine 4 mg at bedtime and tramadol 100 mg extended release and provide a 1 month supply of these medications. I have counseled the patient that he can try Tylenol products for his current headaches in addition to his tramadol. Patient will return to clinic in 1 month for reevaluation of symptoms, medication refill and follow-up. Patient has been instructed to contact the clinic with any concerns before the next appointment. Dr. Meza has reviewed this note and agrees with this plan of care. This note was dictated using voice recognition software and make contain errors or omissions. [facility] Disclaimer: The information contained in this section may have been updated after the patient was seen, as this
[2022-11-21 14:41] VITALS: BP 143/96; PULSE 86; RESP 18; O2SAT 96; BMI 24.0
== END | disposition home or self-care (01) ==
PROVIDERS: PCP Family Medicine; Visit Provider Nurse Practitioner Family
DX: M50.10 Cervical disc disorder with radiculopathy, unspecified cervical region (principal); M47.22 Other spondylosis with radiculopathy, cervical region; M51.16 Intervertebral disc disorders with radiculopathy, lumbar region; M19.90 Unspecified osteoarthritis, unspecified site; M88.9 Osteitis deformans of unspecified bone; M79.10 Myalgia, unspecified site; M46.1 Sacroiliitis, not elsewhere classified; M54.81 Occipital neuralgia; R51.9 Headache, unspecified
CPT/HCPCS: 99212; G0463

== ENCOUNTER → 2022-12-13 14:31 | Outpatient (POV) | payer MEDICARE, OTHER, SELFPAY ==
--- NOTE | 2022-12-13 15:34 | EXP.PAIN.SOA ---
[facility] Pain Management SOAP Note Subjective:: Patient is a pleasant 77-year-old male who presents today for medication refill and follow-up. We are currently treating the patient for degenerative disc disease of cervical and lumbar spine with cervical and lumbar radiculopathy symptoms, cervical facet arthropathy, cervical spondylosis, osteoarthritis, Paget's disease of the bone, sacroiliitis, myofascial pain. Today he rates his pain an 8 out of 10. Patient denies any new trauma or injury. He states he continues to have pain from his neck down and describes it as a chronic aching, throbbing sensation that is worse with increased activity. Patient is currently managed with tramadol 100 mg extended release and methocarbamol 500 mg twice daily and tizanidine 4 mg at bedtime. Patient denies any side effects from these medications. He does state that the tramadol does help however he frequently has worsening pain later in the day and has trouble sleeping. His Reji is [id number]. Its been reviewed and appropriate. Review of Systems: General: No recent weight changes, no fever, no sleep disturbances Respiratory: No cough, no shortness of air, no recurring pulmonary infections Cardiovascular/peripheral vascular: No chest pain, no palpitations, no edema, no shortness of breath Gastrointestinal: No new onset incontinence, normal bowel movements reported Genitourinary: No new onset incontinence Musculoskeletal: Neck pain, low back pain Psychiatric: [Normal mood/affect] Neurological: [Denies weakness in extremities], [denies balance issues] Objective:: Physical Exam: General: Alert and oriented x3, no acute distress, pleasant and cooperative Lungs: Respirations even and unlabored, symmetrical chest expansion Eyes: PERRL Musculoskeletal: Flexion and extension of cervical [spine] somewhat guarded secondary to pain, [antalgic gait noted] Neurological: Speech clear, no gross sensory deficit Assessment:: Degenerative disc disease of cervical and lumbar spine with cervical and lumbar radiculopathy symptoms, cervical facet arthropathy, cervical spondylosis, osteoarthritis, Paget's disease of the bone, sacroiliitis, myofascial pain Plan:: Patient continues to experience significant pain on a daily basis. I have discussed with the patient to take his methocarbamol up to 2 times during the day and to try the tizanidine at night to help with his sleeping. Patient does not need any refills on the muscle relaxers he stated during today's visit. I have also discussed with the patient that I will discontinue the extended release tramadol and send in tramadol 50 mg 3 times a day and provide a 1 month supply of this medication. Patient will return to clinic in 1 month for reevaluation of symptoms and plan of care. Patient has been advised of risks of oversedation with the prescribed medication. Narcan has been offered to the patient in the event of oversedation. Patient has been advised that a family member should also be educated regarding administration of Narcan. Patient has been instructed to contact the clinic with any concerns before the next appointment. Dr. Meza has reviewed this note and agrees with this plan of care. This note was dictated using voice recognition software and make contain errors or omissions. [facility] Disclaimer: The information contained in this section may have been updated after the patient was seen, as this information can be updated by other users. Medical History Abnormal cardiovascular stress test Abnormal electrocardiography Allergies Arthritis Atrial fibrillation Atypical angina Bloating CAD (coronary artery disease) OCT 2020-Mild nonflow limiting coronary disease with preserved ejection fraction Mildly elevated LVEDP consistent with diastolic dysfunction Depression Gastroesophageal reflux disease History of cataract History of COVID-19 History of gastroesophageal reflu
[2022-12-13 15:38] VITALS: BP 147/99; PULSE 90; RESP 20; O2SAT 95; BMI 24.0
== END | disposition home or self-care (01) ==
PROVIDERS: Visit Provider Nurse Practitioner Family
DX: M51.16 Intervertebral disc disorders with radiculopathy, lumbar region (principal); M50.10 Cervical disc disorder with radiculopathy, unspecified cervical region; M47.22 Other spondylosis with radiculopathy, cervical region; M19.90 Unspecified osteoarthritis, unspecified site; M88.9 Osteitis deformans of unspecified bone; M46.1 Sacroiliitis, not elsewhere classified; M79.10 Myalgia, unspecified site
CPT/HCPCS: 99212; G0463

== ENCOUNTER → 2023-01-10 14:26 | Outpatient (POV) | payer MEDICARE, OTHER, SELFPAY ==
[2023-01-10 14:40] VITALS: BP 150/79; PULSE 79; RESP 18; O2SAT 97; BMI 24.1
--- NOTE | 2023-01-10 14:46 | EXP.PAIN.SOA ---
[facility] Pain Management SOAP Note Subjective:: Patient is a pleasant 77-year-old male who presents today for medication refill and follow-up. We are currently treating the patient for degenerative disc disease of cervical and lumbar spine with cervical and lumbar radiculopathy, cervical facet arthropathy, cervical spondylosis, osteoarthritis, Paget's disease of the bone, sacroiliitis, myofascial pain. Today he rates his pain a 6 out of 10. Patient denies any new trauma or injury from our last visit. He does state that he has had COVID 2 times since our last visit with his last illness around 3 weeks ago. He does state that he is still somewhat fatigued from this illness but is doing better overall. He does state that he continues to have low back pain that does radiate into his bilateral hips. He does describe this as an aching, throbbing sensation with numbness and tingling that is worse with increased ambulation or range of movement. Patient does state prolonged sitting, standing or walking seems to aggravate his symptoms. He states since our last visit he has had improvement in his neck pain and the headaches he was experiencing. He does also still mention that he will still occasionally drag his right foot and have weakness which has been going on for years. Patient will occasionally stumble due to this. Patient is currently managed with methocarbamol 500 mg twice a day and tizanidine 4 mg at bedtime and tramadol 50 mg 3 times a day. He denies any side effects from this medication. His Reji has been reviewed and is appropriate. Review of Systems: General: No recent weight changes, no fever, no sleep disturbances Respiratory: No cough, no shortness of air, no recurring pulmonary infections Cardiovascular/peripheral vascular: No chest pain, no palpitations, no edema, no shortness of breath Gastrointestinal: No new onset incontinence, normal bowel movements reported Genitourinary: No new onset incontinence Musculoskeletal: Low back pain, bilateral hip pain Psychiatric: [Normal mood/affect] Neurological: [Denies weakness in extremities], [denies balance issues] Objective:: Physical Exam: General: Alert and oriented x3, no acute distress, pleasant and cooperative Lungs: Respirations even and unlabored, symmetrical chest expansion Eyes: PERRL Musculoskeletal: Flexion and extension of lumbar [spine] somewhat guarded secondary to pain, [antalgic gait noted] point tenderness along bilateral SIs with positive bilateral Araceli's, Sydnee's, Gaenslen's, compression and distraction exam Neurological: Speech clear, no gross sensory deficit Assessment:: Degenerative disc disease of cervical and lumbar spine with cervical and lumbar radiculopathy symptoms, cervical facet arthropathy, cervical spondylosis, osteoarthritis, Paget's disease of the bone, sacroiliitis, myofascial pain Plan:: Patient is experiencing significant pain in his low back and bilateral hips with limited range of motion. Patient did have extreme point tenderness along his right SI and point tenderness at his left along with bilateral Araceli's, Sydnee's, Gaenslen's, compression and distraction exam. I have discussed with the patient that he may benefit from bilateral SI injections. Risk and benefits were discussed with the patient and he would like to proceed forward with this plan of care. I have also discussed with the patient due to his continued weakness in his right leg that I will order physical therapy for evaluation and treatment of his low back and bilateral leg pain/weakness. I will refill the patient's methocarbamol 500 mg twice a day, tizanidine 4 mg at bedtime and tramadol 50 mg 3 times a day and provide a 1 month supply of these medications. Patient will be scheduled for bilateral SI injections. Patient has been instructed to contact the clinic with any concerns before the next appointment. Dr. Meza has reviewed this note and agrees with this plan of care. This note was dictated using voice
== END | disposition home or self-care (01) ==
PROVIDERS: PCP Internal Medicine; Visit Provider Nurse Practitioner Family
DX: M50.10 Cervical disc disorder with radiculopathy, unspecified cervical region (principal); M51.16 Intervertebral disc disorders with radiculopathy, lumbar region; M47.22 Other spondylosis with radiculopathy, cervical region; M19.90 Unspecified osteoarthritis, unspecified site; M88.9 Osteitis deformans of unspecified bone; M46.1 Sacroiliitis, not elsewhere classified; M79.10 Myalgia, unspecified site
CPT/HCPCS: 99212; G0463

== ENCOUNTER 2023-01-29 11:00 | Day surgery (SDC) | payer MEDICARE, OTHER, SELFPAY ==
[2023-01-29 11:15] VITALS: BP 140/86; PULSE 80; RESP 16; TEMP 36.5; O2SAT 97; BMI 24.1
[2023-01-29 11:22] VITALS: BP 137/95; PULSE 96; O2SAT 95
[2023-01-29 11:25] VITALS: BP 137/95; PULSE 91; O2SAT 96
--- NOTE | 2023-01-29 11:28 | P.PCN_ITS ---
Procedure Date: 01/29/23 Time: 11:20 Anesthesiologist:: Roman Krishnamurthy CRNA Complications:: None Pre-procedure Diagnosis:: Bilateral sacroiliitis. Post-procedure Diagnosis:: Same. Indications for Procedure:: Patient is a very pleasant 77-year-old male comes our clinic today for bilateral sacroiliac joint injections. Patient has extreme point tenderness upon examination over the bilateral sacroiliac joints. He has difficulty transitioning from sitting to standing. Patient describes to the low back lumbar pain is constant, dull, aching. Patient also reports bilateral posterior hip pain. He rates his pain 7/10. Procedure Details:: Procedure: Bilateral sacroiliac joint injections under fluoroscopy Informed consent was obtained and the risks and benefits of the procedure were explained to the patient.~ The patient was taken to the procedure room and noninvasive monitors were placed including a noninvasive blood pressure cuff and pulse oximeter.~ The patient was placed prone on the procedure table. Both hips were cleansed using Betadine as a cleansing solution. C-arm fluoroscopy was used to view the right sacroiliac joint.~ The skin and subcutaneous tissues were anesthetized using lidocaine 1.5% and a 25-gauge needle.~ After this, a 22-gauge spinal needle was inserted under fluoroscopic guidance into the inferior aspect of the right sacroiliac joint.~ Omnipaque dye was injected and good spread was seen throughout the joint.~ After this, approximately 5 mL of bupivacaine, 0.25% and Depo-Medrol, 40 mg was incrementally injected into the right sacroiliac joint. We then moved to the left sacroiliac joint.~ The skin and subcutaneous tissues were anesthetized using lidocaine 1.5% and a 25-gauge needle.~ After this, a 22- gauge spinal needle was inserted under fluoroscopic guidance into the inferior aspect of the left sacroiliac joint.~ Omnipaque dye was injected and good spread was seen throughout the joint. After this, approximately 5 mL of bupivacaine, 0.25% and Depo-Medrol, 40 mg was incrementally injected into the left sacroiliac joint.~ The patient tolerated the procedure well with no complications. The patient was observed in the Pain Clinic and then was discharged home neurologically intact. Plan and Disposition:: Patient was discharged without incident.
[2023-01-29 11:30] VITALS: BP 137/87; PULSE 79; RESP 18; O2SAT 97
== END 2023-01-29 11:30 | disposition home or self-care (01) ==
PROVIDERS: PCP Internal Medicine; Visit Provider Nurse Anesthetist, Certified Registered
DX: M46.1 Sacroiliitis, not elsewhere classified (principal)
CPT/HCPCS: 27096; G0260; J1040

== ENCOUNTER → 2023-02-14 11:33 | Outpatient (POV) | payer MEDICARE, OTHER, SELFPAY ==
--- NOTE | 2023-02-14 11:36 | EXP.PAIN.SOA ---
[facility] Pain Management SOAP Note Subjective:: Patient is a pleasant 77-year-old male who presents today for medication refill and follow-up. We are currently treating the patient for degenerative disc disease of cervical and lumbar spine with cervical and lumbar radiculopathy, cervical facet arthropathy, cervical spondylosis, osteoarthritis, Paget's disease of the bone, sacroiliitis, myofascial pain. Today he rates his pain a 2 out of 10. Patient denies any new trauma or injury from our last visit. He states he has had at least 60% improvement following this injection. He states that his low back and leg pain is much better and much more manageable. He states he has been able to increase his activity with decreased pain symptoms. He does feel more overall functional however he says that he is having worsening pain in his neck and shoulder area. Patient does describe this as an aching, throbbing sensation that is worse with certain positions or movements. He does state the pain can interfere with his activities of daily living. He states he frequently spends a lot of time repositioning his neck due to the pain. He is currently managed with methocarbamol 500 mg twice a day, tizanidine 4 mg at bedtime and tramadol 50 mg 3 times a day. Patient is also prescribed gabapentin 100 mg 3 times a day from an outside provider. He denies any side effects from this medication. He states he does not need any refills on his medication at this time. His Reji has been reviewed and is appropriate. Review of Systems: General: No recent weight changes, no fever, no sleep disturbances Respiratory: No cough, no shortness of air, no recurring pulmonary infections Cardiovascular/peripheral vascular: No chest pain, no palpitations, no edema, no shortness of breath Gastrointestinal: No new onset incontinence, normal bowel movements reported Genitourinary: No new onset incontinence Musculoskeletal: Neck pain right-sided, right shoulder pain Psychiatric: [Normal mood/affect] Neurological: [Denies weakness in extremities], [denies balance issues] Objective:: Physical Exam: General: Alert and oriented x3, no acute distress, pleasant and cooperative Lungs: Respirations even and unlabored, symmetrical chest expansion Eyes: PERRL Musculoskeletal: Flexion and extension of cervical [spine] somewhat guarded secondary to pain, [antalgic gait noted] point tenderness along right cervical paraspinous and right trapezius and rhomboid muscles Neurological: Speech clear, no gross sensory deficit Assessment:: Degenerative disc disease of cervical and lumbar spine with cervical and lumbar radiculopathy symptoms, cervical facet arthropathy, cervical spondylosis, osteoarthritis, Paget's disease of the bone, sacroiliitis, myofascial pain Plan:: Patient is experiencing worsening pain in his neck along the right side and into his right shoulder. Patient did have point tenderness along his right cervical paraspinous, right trapezius and right rhomboid muscles. I have discussed with the patient that he may benefit from trigger point injections at this location. Risk and benefits were reviewed with patient and he would like to proceed forward with this plan of care. We will schedule patient for trigger point injections of his right cervical paraspinous, right trapezius and right rhomboid muscles. Patient has been instructed to contact the clinic with any concerns before the next appointment. Dr. Meza has reviewed this note and agrees with this plan of care. This note was dictated using voice recognition software and make contain errors or omissions. [facility] Disclaimer: The information contained in this section may have been updated after the patient was seen, as this information can be updated by other users. Medical History Abnormal cardiovascular stress test Abnormal electrocardiography Allergies Arthritis Atrial fibrillation Atypical angina
[2023-02-14 12:11] VITALS: BP 123/78; PULSE 71; RESP 18; O2SAT 97; BMI 23.7
== END ==
PROVIDERS: Visit Provider Nurse Practitioner Family
DX: M50.10 Cervical disc disorder with radiculopathy, unspecified cervical region (principal); M47.22 Other spondylosis with radiculopathy, cervical region; M51.16 Intervertebral disc disorders with radiculopathy, lumbar region; M19.90 Unspecified osteoarthritis, unspecified site; M88.9 Osteitis deformans of unspecified bone; M46.1 Sacroiliitis, not elsewhere classified; M79.10 Myalgia, unspecified site
CPT/HCPCS: 99212; G0463

== ENCOUNTER 2023-02-21 13:00 | Outpatient (RCR) | payer MEDICARE, OTHER, SELFPAY ==
--- NOTE | 2023-01-21 11:21 | HMH.PTOPEV ---
PT Outpatient Evaluation Rehab PT Outpatient Evaluation Start: 01/21/23 09:59 Freq: Status: Active Protocol: Document 01/21/23 09:59 PREET (Rec: 01/21/23 11:21 PREET [id number]) E-signed By Kelly Jj, PT Outpatient Therapy Subjective History Subjective History Pt is a 77 y/o male who reports chronic R>L LBP for 20 -30 years. Pt reports pain is mostly located at the right posterolateral hip to the greater trochanter, denies distal symptoms. Pt denies pain, paresthesia, or b/b dysfunction. Pt reports intermittent numbness of the bottom of the right foot and his right foot has been dragging for 1-2 years with gradual worsening. Pt reports he has fallen a few times due to this. Pt reports his most recent fall was in the Spring while walking on level ground and his right leg wouldn't pick up attendant. Pt reports no change in LBP or injuries from the fall. Pt reports pain is aggravated by bending over, lifting anything, putting his shoes/socks on, standing 10 minutes, walking >1/4 mile, and prolonged sitting. Pt reports he had a MRI last year , denies recent imaging of the low back. Pt had lumbar spine MRI at [facility] on 11/09/21 with impression of Multilevel degenerative disc disease with areas of neural foraminal narrowing. Small right foraminal annular tear and disc protrusion at L3-L4 without significant central canal stenosis. Pt reports he has been seeing pain management for neck and low back pain. Pt reports he is supposed to get injections in his low back next week. Medical History: Arthritis, Atrial Fibrillation, Atypical Angina, CAD, Depression, GERD, Hypertension, WILIAM, Overactive bladder, Rosacea, Paget's disease New diagnosis of cancer in past 12 No months? Chief Complaint Pain,Stiff Symptom Type Ache,Dull Symptoms Relieved By Heat,Prescription Meds Symptoms Aggravated By Prone,Supine,Sitting,Standing, Bending/Stooping,Physical Activity,Twisting,Walking, Lifting,Sneeze/Coughing Current Functional Limitations Lifting,Driving,Sleeping, Standing,Sitting,Squatting, Walking,Stairs,Balance,Bending /Stooping Symptom Description Constant but Variable Level of pain today (0-10) 5 Pain scale - at its best (0-10) 4 Pain scale - at its worst (0-10) 7 Lumbopelvic Eval Posture Lumbar Spine Posture Standing Position Flattened,Flexed Gait Observation General Gait Pattern Observation Antalgic Gait,Shuffling Step Palapation tenderness bilateral thoracic spinal tenderness Yes lumbar spinal tenderness Yes paraspinal tenderness Yes buttock tenderness Yes Lumbar/Sacral Palpation Findings Tenderness Lumbar/Sacral Palpation Overall Comment R>L Accessory Movement L-spine Vertebrae Accessory Movements Central P/A Mcneal that Elicit Symptoms L2 bilateral L3 bilateral L4 bilateral L5 bilateral S1 bilateral Range of Motion Lumbar Spine Active Flexion Range of 50 Motion (degrees) Lumbar Spine Active Extension Range of 8 Motion (degrees) Left Lumbar Spine Lateral Flexion Active 15 Range of Motion (degrees) Right Lumbar Spine Lateral Flexion 10 Active Range of Motion (degrees) Manual Muscle Test Right Knee Extension Strength Grade 4- Good- Knee Flexion Strength Grade 4 Good Hip Flexion Strength Grade 4- Good- Hip Abduction Strength Grade 4 Good Hip Adduction Strength Grade 4 Good Ankle Dorsiflexion Strength Grade 4 Good Left Knee Extension Strength Grade 5 Normal Knee Flexion Strength Grade 4 Good Hip Flexion Strength Grade 5 Normal Hip Abduction Strength Grade 4 Good Hip Adduction Strength Grade 4 Good Ankle Dorsiflexion Strength Grade 5 Normal DTR Rt Patellar 2+ Lt Patellar 2+ Rt Gastroc/Soleus 2+ Lt Gastroc/Soleus 2+ Altered Sensation Bilateral LE Dermatome Level L5 Comment Decreased light touch R compared to L Special Tests Hip Scouring (Quadrant) Test Positive Right Hip Roman (DEANNE) Test Positive Right Sciatic Nerve Tension Test Negative Right Unilateral Straight Leg Raise (Lasegue) Negative Right Test Oswestry Index Section 1 Pain Intensity The pain comes and goes and is moderate Section 2 Personal Care (Washing,Dresing) increase the pain, but I manage not to change my way of doing it Section 3 Lifting Pain prevents me from lifting weights off the floor Section 4 Walking I cannot walk at all without increasing pain Section 5 Sitting Pain prevents me from sitting for more than one hour Section 6 Standing I cannot stand more than 10 minutes without increasing pain Section 7 Sleeping Because of my pain, my normal night's sleep is less than 6 hours sleep Section 8 Social Life Pain has restricted my social life and I do not go out often Section 9 Traveling Pain restricts me to short necessary journeys under 30 minutes Section 10 Changing Degreee of Pain My pain is gradually getting worse Score and Risk Level Oswestry Sc 30 Oswestry Risk Level Severe Disability Outpatient Therapy Assessment Impairments Problems/Impairmments Palpation Tenderness,Impaired Range of Motion,Impaired Strength,Impaired Gait Pattern ,Impaired Walking,Impaired Standing,Impaired Sitting, Impaired Lifting,Impaired Household Care,Impaired Squatting,Impaired Bending, Impaired Balance,Subjective C/ O Pain,Impaired Self Care/Self Management Prognosis Rehab Potential Good Clinical Impression Consistent with Diagnosis Yes Short Term Goals Number of Weeks 3 Increase Range of Motion Yes: Improve lumbar flexion AROM to at least 60 Improve Oswestry Score Yes: Improve CORBIN score to at least 25 to improve overall QOL Decrease Subjective C/O Pain Yes: Improve pain at worst to 5/10 to improve overall QOL Improve Self Care/Self Management Yes Patient to be Ind w/ HEP Yes 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 Goals Number of Weeks 6 Increase Range of Motion Yes: Improve lumbar flexion AROM to at least 70, ext to 15 , LF to 20 Increase Strength Yes: Improve BLE MMT to at least 4+/5 grossly to assist with function Improve Gait Pattern without Assistive Yes: demonstrate proper Device mechanics to decrease fall risk Increase Ability to Walk Yes: >10' with pain 3/10 to assist with ADLs Increase Ability to Stand Yes: >10' with pain 3/10 to assist with ADLs Improve Balance Yes Improve Oswestry Score Yes: Improve CORBIN score to 20 or less to improve overall QOL Decrease Subjective C/O Pain Yes: Improve pain severity at worst to 3/10 to improve overall QOL Outpatient Therapy Plan of Care Treatment Plan May Include Therapeutic Exercise Including Home Yes Exercise Program Manual Therapy Techniques Yes Neuromuscular Re-education Yes Therapeutic Activities to Return to Yes Previous Functional/Work Level ADL/Self Care Education Yes Mechanical Traction Yes Dry Needling Yes Thermal Modalities Yes Electrical Stimulation Yes Ultrasound/Phonophoresis Yes Iontophoresis Yes Massage Yes Group Therapy for Medicare Yes Eval/Re-Eval Yes Frequency Times per week 2 Duration Number of Weeks 4-6 Addendums This patient is a candidate for social No or vocational rehab? Patient/Guardian verbally acknowledges Yes understanding of treatment program and consents to further treatment? Patient/Guardian verbally acknowledges Yes understanding of diagnosis, prognosis and goals for treatment? Eval Complexity PT Charges 70762 - Moderate Complexity Shoulder/Elbow Eval Shoulder Objective Measurements Elbow Objective Measurements PHYSICIAN CERTIFICATION: I certify the specified therapy services for Alba Jamaal Bills are required, authorized, and reviewed every 30 days.
--- NOTE | 2023-02-19 13:56 | HMH.RHREAS ---
Rehab Reassessment Rehab OP Re-assessment Start: 01/21/23 09:59 Freq: Status: Active Protocol: Document 02/19/23 13:00 CELENADENISSE (Rec: 02/19/23 13:55 SELENARADHA [id number]) E-signed By Kelly Jj, PT Oswestry Index Section 1 Pain Intensity The pain is moderate and does not vary much Section 2 Personal Care (Washing,Dresing) change my way of washing or dressing in order to avoid pain Section 3 Lifting I can only lift very light weights at most Section 4 Walking I cannot walk more than 1/4 mile without increasing pain Section 5 Sitting Pain prevents me from sitting for more than one hour Section 6 Standing I cannot stand more than 10 minutes without increasing pain Section 7 Sleeping Because of my pain, my normal night's sleep is less than 6 hours sleep Section 8 Social Life Pain has restricted my social life and I do not go out often Section 9 Traveling Pain restricts me to short necessary journeys under 30 minutes Section 10 Changing Degreee of Pain My pain is getting better Score and Risk Level Oswestry Sc 27 Oswestry Risk Level Severe Disability Rehab Re-assessment Subjective Subjective Pt reports he has been unable to attend PT due to being busy around [facility]. Pt reports he has been performing his HEP sometimes when I have the energy. Pt reports HEP seems to help when he does do the exercises. Pt reports he had an injection last week which improved LBP. Pt reports pain at worst as 1-2/10 within the last week. Pt reports his right leg still feels weak and he often stumbles due to the right foot dragging. Objective Objective Notes Lumbar AROM: 60 flex, 15 ext, 20 LLF, 15 RLF RLE MMT: hip flex 4/5, hip abd 4/5, hip ext 4-/5, knee ext 4 -/5, knee flex 4/5, ankle DF 4 /5 Assessment Assessment Notes Pt has only attended 2 PT visits since the initial evaluation performed on . Pt was educated on importance of compliance with PT POC/HEP to assist with overall progress. Pt would continue to benefit from skilled PT to further improve lumbar AROM, LE strength, gait and functional activity tolerance to improve overall QOL and decrease fall risk. Patient goals met ST/5 Goals Not Met HEP, LEFS, LTG Revised Goals n/a Plan Plan Continue initial POC Frequency of Therapy 2x/week Duration of therapy 4 weeks Time and Billing Re-Eval Time 10 Re-Eval Billing Units 1 PHYSICIAN CERTIFICATION: I certify the specified therapy services for [place] [facility] Bills are required, authorized, and reviewed every 30 days.
== END 2023-02-21 14:00 | disposition home or self-care (01) ==
LOC: PT 13:00
PROVIDERS: PCP Internal Medicine; Visit Provider Nurse Practitioner Family
DX: M54.50 Low back pain, unspecified (principal); R53.1 Weakness
CPT/HCPCS: 97010; 97014; 97110; 97163; 97164; G0283

== ENCOUNTER → 2023-02-26 14:16 | Outpatient (CLI) | payer MEDICARE, OTHER, SELFPAY ==
[2023-02-26 15:37] LABS: Basophils % 0.4 % (0.1-2.0); Eosinophils # 0.2 K/mm3 (0.0-0.4); Eosinophils % 3.1 % (0.1-12.0); Hematocrit 51.4 % (42.0-52.0); Hemoglobin 17.1 g/dL (14.1-18.0); Lymphocytes # 1.7 K/mm3 (0.7-4.5); Lymphocytes % 24.9 % (10-50); Mean Corpuscular HGB Conc 33.4 g/dL (31.8-35.4); Mean Corpuscular Volume 95.8 fl (80-94); Mean Platelet Volume 9.6 fl (7.4-10.4); Monocytes # 0.6 K/mm3 (0.1-1.0); Monocytes % 8.4 % (1.7-9.3); Neutrophils # 4.4 K/mm3 (1.8-7.8); Neutrophils % 63.1 % (37.0-80.0); Platelet Count 122 K/mm3 (142-424); Red Blood Count 5.36 M/mm3 (4.60-6.20); Red Cell Distribution Width 13.9 % (11.5-17.5); White Blood Count 6.9 K/mm3 (4.8-10.8)
[2023-02-26 15:55] LABS: Alanine Aminotransferase 21 U/L (12-78); Albumin Level 4.4 g/dl (3.5-5.0); Alkaline Phosphatase 42 U/L (38-126); Anion Gap 11.6 mEq/L (5-15); Aspartate Amino Transferase 30 U/L (17-59); Bilirubin,Direct 0.1 mg/dl (0.0-0.4); Bilirubin,Indirect 0.7 mg/dL (0.0-0.9); Bilirubin,Total 0.8 mg/dl (0.2-1.3); Bilirubin,Unconjugated 0.7 mg/dL (0.0-1.1); Blood Urea Nitrogen 30 mg/dl (9-20); Calcium 8.7 mg/dl (8.4-10.2); Carbon Dioxide 28 mmol/L (22.0-30.0); Chloride 104 mmol/L (98-107); Chol/HDL Ratio 4.3 (1-3.5); Cholesterol 213 mg/dl (140-200); Estimated Glomerular Filt Rate 53 ml/min (>60); GFR (African American) 64 ML/MIN (>60); Glucose 99 mg/dl (74-100); HDL Cholesterol 50 mg/dl (40-60); Potassium 4.6 mmoL/L (3.5-5.1); Sodium 139 mmol/L (136-145); Total Protein,Serum 7.1 g/dl (6.3-8.2); Triglycerides 193 mg/dl (30-150); VLDL Cholesterol 39 mg/dL (0-40)
[2023-02-26 16:12] LABS: Free T4 (Free Thyroxine) 0.91 ng/dl (0.78-2.19)
[2023-02-26 16:26] LABS: Thyroid Stimulating Hormone 2.88 uIU/mL (0.465-4.68)
== END ==
PROVIDERS: PCP Internal Medicine; Visit Provider Physician Assistant
DX: I11.9 Hypertensive heart disease without heart failure (principal); I25.10 Atherosclerotic heart disease of native coronary artery without angina pectoris; E78.5 Hyperlipidemia, unspecified; I48.20 Chronic atrial fibrillation, unspecified; N18.9 Chronic kidney disease, unspecified; R06.00 Dyspnea, unspecified; R53.83 Other fatigue
CPT/HCPCS: 36415; 80048; 80061; 80076; 83735; 84439; 84443; 85025

== ENCOUNTER → 2023-03-08 15:18 | Outpatient (CLI) | payer MEDICARE, OTHER, SELFPAY ==
--- NOTE | 2023-03-08 15:18 | CA_ITS ---
APPROVED REPORT EXAM: Comprehensive 2D, Doppler, and color-flow Echocardiogram Film Processing Utility Worker: Bree Parker RVT Ht: 6 ft 2 in Wt: 195lbs BSA: 2.15 BP: 123/78 mmHg Indications: A-FIB,MURMUR,PALPS,THN,HLD,HX RHEUMATIC FEVER 2D Dimensions LA Volume 85.70 mL LA Volume Index 39.86 mL/m2 (M/F) 16-34 M-Mode Dimensions RVDd 2.53 cm (0.9-2.6) LA Diam 4.88 cm (1.9-4.0) LVDd 4.78 cm (3.5-5.7) LVDs 3.37 cm (3.5-5.7) IVSd 0.48 cm (0.6-1.1) PWd 0.68 cm (0.6-1.1) EF (Teich) 56.40% FS 29.50% EDV (Teich) 106.50 mL TAPSE 2.02 (<1.7) ESV (Teich) 46.40 mL LV Diastology E Decel Time 150 (160-240 msec) E/A Ratio 7.1 Aortic Valve BHAVANI Index 0.95 cm2/m2 AoV Peak Jim. 160.0 (50-130 cm/s) AI PHT 632.00 ms AO Peak GR. 10.20 mmHg AO Mean GR. 6.80 (<5 mmHg) AO VTI 31.6 (18-25 cm) BHAVANI (VTI) 2.08 (2.5-4.5 cm2) Mitral Valve MV E Max Jim. 99.0 (40-130 cm/s) MV A Velocity 14.0 (40-130 cm/s) E/A Ratio 6.99 MV PHT 44.0 ms Pulmonary Valve PV Peak Velocity 84.0 (50-150 cm/s) Tricuspid Valve TR P. Velocity 295.00 cm/s RAP Estimate 10.00 mmHg RVSP 44.70 mmHg Left Ventricle The left ventricle is normal size. The left ventricular systolic function is normal. The left ventricular ejection fraction is within the normal range. There is increased LV wall thickness. There is normal LV segmental wall motion. The left ventricular diastolic function is indeterminate due to atrial fibrillation. LVEF is 55%. Right Ventricle The right ventricle is mildly dilated. The right ventricular systolic function is normal. Atria Left atrium is moderately dilated. Right atrium is moderately dilated. There is no Doppler evidence of interatrial shunt. Aortic Valve The aortic valve is mildly thickened. There is no aortic valvular stenosis. Mild aortic regurgitation. Mitral Valve The mitral valve leaflets are mildly thickened. No evidence of mitral valve stenosis. Mean MV gradient 4 mmHg (HR 102 bpm). Mild mitral regurgitation. Tricuspid Valve The tricuspid valve leaflets are thin and pliable. Mild tricuspid regurgitation. RVSP is 30-35 mmHg. Pulmonic Valve The pulmonary valve is normal in structure. Trace pulmonic regurgitation. Great Vessels The aortic root is normal in size. The ascending aorta is not well-visualized. IVC is normal in size and collapses >50% with inspiration. Pericardium There is no pericardial effusion. Other Information Study Quality: Fair Conclusion Normal biventricular systolic function. Mild RV dilation. Mild AI. Mild MR. Mild TR. RVSP 30-35 mmHg. Compared to prior study from 2020, there are no significant changes. Electronically signed by : aTnika Gill MD 03/12/2023 00:11:14
== END ==
LOC: RT 15:18
PROVIDERS: PCP Internal Medicine; Visit Provider Physician Assistant
DX: R06.00 Dyspnea, unspecified (principal); R53.83 Other fatigue; E78.5 Hyperlipidemia, unspecified; I11.0 Hypertensive heart disease with heart failure; I12.9 Hypertensive chronic kidney disease with stage 1 through stage 4 chronic kidney disease, or unspecified chronic kidney disease; I25.10 Atherosclerotic heart disease of native coronary artery without angina pectoris; I48.20 Chronic atrial fibrillation, unspecified; N18.9 Chronic kidney disease, unspecified
CPT/HCPCS: 93306

== ENCOUNTER 2023-03-19 12:55 | Day surgery (SDC) | payer MEDICARE, OTHER, SELFPAY ==
[2023-03-19 13:00] VITALS: BP 138/83; PULSE 58; RESP 18; O2SAT 94; BMI 24.1
[2023-03-19] MEDS: methylPREDNISolone ACETATE 80MG/ML VIAL 80 MG (13:08)
[2023-03-19 13:09] VITALS: BP 154/99; PULSE 86; RESP 18; O2SAT 98
[2023-03-19] MEDS: LIDOCAINE 1% 5ML PF VIAL 5 ML (13:09)
[2023-03-19] MEDS: BUPIVACAINE 0.25% 10ML INJ 25 MG IJ (13:09)
[2023-03-19 13:10] VITALS: BP 154/99; PULSE 86; RESP 18; O2SAT 98
[2023-03-19 13:13] VITALS: BP 142/87; PULSE 96; RESP 18; O2SAT 94
--- NOTE | 2023-03-19 13:13 | EXP.PAIN.PRO ---
Procedure Date: 03/19/23 Time: 13:10 Anesthesiologist:: Roman Krishnamurthy CRNA Complications:: None Pre-procedure Diagnosis:: Myofascial pain right posterior cervical paraspinous muscle. Right trapezius muscle. Post-procedure Diagnosis:: Same. Indications for Procedure:: Patient is a pleasant 77-year-old male who comes our clinic today for right posterior cervical paraspinous muscle trigger point injection as well as right trapezius muscle trigger point injection. Patient describes the pain as constant, dull, sharp, stabbing at times. He rates pain 6/10. Procedure Details:: Details of the procedure explained to the patient. The patient taken to procedure room placed in the sitting position. The area over the posterior cervical spine and right trapezius muscle was cleansed using chlorhexidine as a cleansing solution. Using a solution containing 0.25% Marcaine +1% lidocaine and 40 mg of Depo-Medrol and a 25-gauge inch and half needle the right cervical paraspinous muscle was injected with 2 cc at 3 locations starting superiorly to inferior. The right trapezius muscle was injected with 2 cc in 3 separate areas medial to lateral. Patient tolerated procedure without difficulty. No complications. Plan and Disposition:: Patient was discharged without incident.
== END 2023-03-19 13:13 | disposition home or self-care (01) ==
PROVIDERS: PCP Internal Medicine; Visit Provider Nurse Anesthetist, Certified Registered
DX: M79.18 Myalgia, other site (principal)
CPT/HCPCS: 20552; J1040

== ENCOUNTER → 2023-04-10 14:35 | Outpatient (POV) | payer MEDICARE, OTHER, SELFPAY ==
[2023-04-10 15:38] VITALS: BP 120/82; PULSE 86; RESP 18; O2SAT 98; BMI 24.1
--- NOTE | 2023-04-10 15:46 | EXP.PAIN.SOA ---
[facility] Pain Management SOAP Note Subjective:: Patient is a pleasant 77-year-old male who presents today for medication refill and follow-up trigger point injection of his right posterior cervical paraspinous muscle on 03/19/2023. We are currently treating the patient for degenerative disc disease of cervical and lumbar spine with cervical and lumbar radiculopathy symptoms, cervical facet arthropathy, cervical spondylosis, osteoarthritis, Paget's disease of the bone, sacroiliitis, myofascial pain. Today he rates his pain a 2 out of 10. Patient states he has had at least 80% improvement following these injections and feels like they are still currently providing additional improvement. Patient had been going to physical therapy however recently came down with COVID and states that he had to stop this and has not gone back since. Patient states he still is having trouble with energy but is starting to slowly feel better. Patient is currently managed with methocarbamol 500 mg twice a day as needed, tizanidine 4 mg at bedtime and tramadol 50 mg 3 times a day. Patient denies any side effects from this medication. He does state he needs refill on the tizanidine and tramadol. Patient is also prescribed gabapentin 100 mg 3 times a day from his primary care provider. His Reji has been reviewed and is appropriate. Review of Systems: General: No recent weight changes, no fever, no sleep disturbances Respiratory: No cough, no shortness of air, no recurring pulmonary infections Cardiovascular/peripheral vascular: No chest pain, no palpitations, no edema, no shortness of breath Gastrointestinal: No new onset incontinence, normal bowel movements reported Genitourinary: No new onset incontinence Musculoskeletal: Low back pain Psychiatric: [Normal mood/affect] Neurological: [Denies weakness in extremities], [denies balance issues] Objective:: Physical Exam: General: Alert and oriented x3, no acute distress, pleasant and cooperative Lungs: Respirations even and unlabored, symmetrical chest expansion Eyes: PERRL Musculoskeletal: Flexion and extension of lumbar [spine] somewhat guarded secondary to pain, [antalgic gait noted] Neurological: Speech clear, no gross sensory deficit Assessment:: Degenerative disc disease of cervical and lumbar spine with cervical and lumbar radiculopathy symptoms, cervical facet arthropathy, cervical spondylosis, osteoarthritis, Paget's disease of the bone, sacroiliitis, myofascial pain Plan:: Patient has had significant improvement following his trigger point injection and does not require any additional injection therapy at this time. I will refill the patient's tramadol 50 mg 3 times a day and tizanidine 4 mg at bedtime and provide a 1 month supply of this medication. Patient will return to clinic in 1 month for reevaluation of symptoms and plan of care. Risks and benefits of the medication have been explained in detail to the patient. The patient does understand the risk of dependence on the medication when given over a prolonged period. Patient has been advised of risks of oversedation with the prescribed medication. Narcan has been offered to the paitent in the event of oversedation. Patient has been advised that a family member should also be educated regarding administration of Narcan. The patient has been advised to consult with his/her primary care provider and pharmacist regarding drug-drug interaction of medications currently prescribed. Patient has been prescribed a controlled substance after being counseled on the medication, medication safety, and possible side effects. Opioid contract was reviewed and signed by the patient, and that they have agreed to all of the terms set forth by our compliance program. Patient has been instructed to contact the clinic with any concerns before the next appointment. Dr. Meza has reviewed this note and agrees with this plan of care. This note was dictated using voice recognition software and make contain errors or omissions. [facility] Disclaimer: The information contained in this section may have been updated after the patient was seen, as this information can be updated by other users. Medical History Abnormal cardiovascular stress test Abnormal electrocardiography Acute left otitis media Allergies Arthritis Atrial fibrillation Atypical angina Bloating CAD (coronary artery disease) OCT 2020-Mild nonflow limiting coronary disease with preserved ejection fraction Mildly elevated LVEDP consistent with diastolic dysfunction Depression Dyspnea Fatigue Gastroesophageal reflux disease Hearing loss History of cataract History of COVID-19 History of gastroesophageal reflux (GERD) Hypertension Impacted cerumen WILIAM (obstructive sleep apnea) Otitis externa of left ear Overactive bladder Rosacea Skin cancer Surgical History H/O hemorrhoidectomy History of bladder surgery History of cataract surgery Family History Other No significant family history Social History Smoking Status: Never smoker second hand exposure: No alcohol intake: current counseling provided: none substance use type: denies use current occupational status: retired Travel in the last 8 weeks: None household members: other housing: house current occupation: retired current occupational exposures/hazards: No caffeine: Yes
== END | disposition home or self-care (01) ==
PROVIDERS: PCP Internal Medicine; Visit Provider Nurse Practitioner Family
DX: M50.10 Cervical disc disorder with radiculopathy, unspecified cervical region (principal); M47.22 Other spondylosis with radiculopathy, cervical region; M51.16 Intervertebral disc disorders with radiculopathy, lumbar region; M19.90 Unspecified osteoarthritis, unspecified site; M88.9 Osteitis deformans of unspecified bone; M46.1 Sacroiliitis, not elsewhere classified; M79.10 Myalgia, unspecified site
CPT/HCPCS: 99212; G0463

== ENCOUNTER 2023-05-09 13:39 | Outpatient (POV) | payer MEDICARE, OTHER, SELFPAY ==
[2023-05-09 14:00] VITALS: BP 143/75; PULSE 100; RESP 18; O2SAT 97; BMI 24.1
--- NOTE | 2023-05-09 14:13 | EXP.PAIN.SOA ---
[facility] Pain Management SOAP Note Subjective:: Patient is a pleasant 77-year-old male who presents today for follow-up and medication refill. We are currently treating the patient for degenerative disc disease of cervical and lumbar spine with cervical and lumbar radiculopathy symptoms, myofascial pain, cervical facet arthropathy, cervical spondylosis, osteoarthritis, Paget's disease of the bone, sacroiliitis. Today he rates his pain a 2 out of 10. Patient denies any new trauma or injury. He does state that overall from the last trigger point injections and around the right side of his neck he has had 100% relief of his headaches. He does state that his low back symptoms are continuing to do well with approximately 80% relief. He states that the real pain he only is going through right now is more mid back pain in and around his right shoulder area. Patient denies any injury at this location. Patient is currently managed with methocarbamol 500 mg twice a day and tizanidine at night along with tramadol 50 mg 3 times a day. He denies any side effects from this medication. He states that typically he will only ends up using 1 to 2 tablets of the tramadol. He is on gabapentin from an outside provider. His Reji has been reviewed and is appropriate. Review of Systems: General: No recent weight changes, no fever, no sleep disturbances Respiratory: No cough, no shortness of air, no recurring pulmonary infections Cardiovascular/peripheral vascular: No chest pain, no palpitations, no edema, no shortness of breath Gastrointestinal: No new onset incontinence, normal bowel movements reported Genitourinary: No new onset incontinence Musculoskeletal: Mid back pain right side Psychiatric: [Normal mood/affect] Neurological: [Denies weakness in extremities], [denies balance issues] Objective:: Physical Exam: General: Alert and oriented x3, no acute distress, pleasant and cooperative Lungs: Respirations even and unlabored, symmetrical chest expansion Eyes: PERRL Musculoskeletal: Flexion and extension of thoracic [spine] somewhat guarded secondary to pain, [antalgic gait noted] point tenderness along the right thoracic paraspinous muscles Neurological: Speech clear, no gross sensory deficit Assessment:: Degenerative disc disease of cervical and lumbar spine with cervical and lumbar radiculopathy symptoms, myofascial pain, cervical facet arthropathy, cervical spondylosis, osteoarthritis, Paget's disease of the bone, sacroiliitis Plan:: Patient is experiencing some pain in and around his right scapular with point tenderness at his right thoracic paraspinous muscles. I have discussed with the patient that we could do trigger point injections in and around this area. Risk and benefits were discussed with patient and he would like to proceed forward with this plan of care. I will also refill the patient's methocarbamol 500 mg twice a day, tizanidine 4 mg at bedtime and tramadol 50 mg 3 times a day and provide a 3-month supply of this medication. Patient will be scheduled for trigger point injections of his right thoracic paraspinous muscles. Patient has been instructed to contact the clinic with any concerns before the next appointment. Dr. Meza has reviewed this note and agrees with this plan of care. This note was dictated using voice recognition software and make contain errors or omissions. [facility] Disclaimer: The information contained in this section may have been updated after the patient was seen, as this information can be updated by other users. Medical History Abnormal cardiovascular stress test Abnormal electrocardiography Acute left otitis media Allergies Arthritis Atrial fibrillation Atypical angina Bloating CAD (coronary artery disease) OCT 2020-Mild nonflow limiting coronary disease with preserved ejection fraction Mildly elevated LVEDP consistent with diastolic dysfunction Depression Dyspnea Fatigue Gastroesophageal reflux disease Hearing loss History of cataract History of COVID-19 History of gastroesophageal reflux (GERD) Hypertension Impacted cerumen WILIAM (obstructive sleep apnea) Otitis externa of left ear Overactive bladder Rosacea Skin cancer Surgical History H/O hemorrhoidectomy History of bladder surgery History of cataract surgery Family History Other No significant family history Social History Smoking Status: Never smoker second hand exposure: No alcohol intake: current counseling provided: none substance use type: denies use current occupational status: retired Travel in the last 8 weeks: None household members: other housing: house current occupation: retired current occupational exposures/hazards: No caffeine: Yes
== END 2023-05-09 23:59 | disposition home or self-care (01) ==
PROVIDERS: PCP Internal Medicine; Visit Provider Nurse Practitioner Family
DX: M50.10 Cervical disc disorder with radiculopathy, unspecified cervical region (principal); M51.16 Intervertebral disc disorders with radiculopathy, lumbar region; M79.18 Myalgia, other site; M47.22 Other spondylosis with radiculopathy, cervical region; M19.90 Unspecified osteoarthritis, unspecified site; M88.9 Osteitis deformans of unspecified bone; M46.1 Sacroiliitis, not elsewhere classified
CPT/HCPCS: 99212; G0463

== ENCOUNTER 2023-06-04 13:32 | Day surgery (SDC) | payer MEDICARE, OTHER, SELFPAY ==
[2023-06-04 13:59] VITALS: BP 134/80; PULSE 71; RESP 18; O2SAT 98; BMI 24.9
[2023-06-04] MEDS: BUPIVACAINE 0.25% 10ML INJ 25 MG IJ (14:00)
[2023-06-04] MEDS: LIDOCAINE 1% 5ML PF VIAL 5 ML (14:00)
[2023-06-04] MEDS: methylPREDNISolone ACETATE 80MG/ML VIAL 80 MG (14:00)
[2023-06-04 14:22] VITALS: BP 122/85; PULSE 70; RESP 18; O2SAT 98
[2023-06-04 14:23] VITALS: RESP 20
--- NOTE | 2023-06-04 14:23 | EXP.PAIN.PRO ---
Procedure Date: 06/04/23 Time: 14:00 Anesthesiologist:: Roman Krishnamurthy CRNA Complications:: None Pre-procedure Diagnosis:: Myofascial pain right thoracic paraspinous muscle. Right rhomboid muscle. Post-procedure Diagnosis:: Same. Indications for Procedure:: Patient is a very pleasant 77-year-old male comes our clinic today for right trigger point injection of the thoracic paraspinous muscle. Patient complains of myofascial pain between the T6 and T10 area on the right side. This would be just medial to the scapula. Patient states pain is dull, aching, sharp, stabbing at times. Using a solution containing 0.25% Marcaine +1% lidocaine and 40 mg Depo-Medrol with 2 to 3 cc of the solution was injected with a 25-gauge inch and half needle and 4 separate areas in the right thoracic paraspinous muscle. Patient tolerated procedure without difficulty. There are no complications. Procedure Details:: Using a solution containing 0.25% Marcaine +1% lidocaine and 40 mg Depo-Medrol with 2 to 3 cc of the solution was injected with a 25-gauge inch and half needle and 4 separate areas in the right thoracic paraspinous muscle. Patient tolerated procedure without difficulty. There are no complications. Plan and Disposition:: Patient was discharged without incident.
== END 2023-06-04 14:22 | disposition home or self-care (01) ==
PROVIDERS: PCP Internal Medicine; Visit Provider Nurse Anesthetist, Certified Registered
DX: M79.18 Myalgia, other site (principal)
CPT/HCPCS: 20552; J1010

== ENCOUNTER 2023-06-27 14:30 | Outpatient (POV) | payer MEDICARE, OTHER, SELFPAY | END 2023-06-27 23:59 | disposition home or self-care (01) | LOC: SC 14:59 | PROVIDERS: Visit Provider Specialist/Technologist | DX: Z00.00 Encounter for general adult medical examination without abnormal findings (principal) ==

== ENCOUNTER 2023-07-04 07:38 | Outpatient (CLI) | payer MEDICARE, OTHER, SELFPAY ==
--- NOTE | 2023-07-04 07:38 | CA_ITS ---
FINAL REPORT TECHNIQUE: Color Doppler, duplex Doppler and reyna scale sonography of the bilateral neck arterial vasculature was performed. Velocities were measured in the carotid arteries. Stenosis evaluation based on the validated velocity criteria. CLINICAL HISTORY: dizziness, HTN, COMPARISON: None FINDINGS: The peak systolic velocity of the right common carotid artery is 64 cm/s. The peak systolic velocity of the right internal carotid artery is 65 cm/s and end diastolic velocity 27 cm/s. The ICA/CCA ratio is 1.3. A mild amount of plaque is present. The right external carotid artery is patent. The right vertebral artery is patent with antegrade flow. The peak systolic velocity of the left common carotid artery is 82 cm/s. The peak systolic velocity of the left internal carotid artery is 68 cm/s and end diastolic velocity 32 cm/s. The ICA/CCA ratio is 1.2. A mild amount of plaque is present. The left external carotid artery is patent.The left vertebral artery is patent with antegrade flow. IMPRESSION: Less than 50% bilateral carotid stenoses. Bilateral patent vertebral arteries with antegrade flow. If indicated, CTA or MRA could further evaluate. Reviewed, Interpreted and Dictated by Jayme Mathur MD Transcribed by Judit Donohue Authenticated and [facility]
[2023-07-04 07:53] LABS: Basophils # 0.1 K/mm3 (0-0.2); Basophils % 1.6 % (0.1-2.0); Eosinophils # 0.2 K/mm3 (0.0-0.4); Eosinophils % 2.7 % (0.1-12.0); Hemoglobin 16.9 g/dL (14.1-18.0); Lymphocytes # 1.9 K/mm3 (0.7-4.5); Lymphocytes % 29.7 % (10-50); Mean Corpuscular Hemoglobin 31.8 pg (27.0-31.2); Mean Corpuscular Volume 99.4 fl (80-94); Mean Platelet Volume 9.6 fl (7.4-10.4); Monocytes # 0.5 K/mm3 (0.1-1.0); Monocytes % 7.7 % (1.7-9.3); Neutrophils # 3.8 K/mm3 (1.8-7.8); Neutrophils % 58.3 % (37.0-80.0); Platelet Count 126 K/mm3 (142-424); Red Blood Count 5.33 M/mm3 (4.60-6.20); Red Cell Distribution Width 13.9 % (11.5-17.5); White Blood Count 6.5 K/mm3 (4.8-10.8)
[2023-07-04 08:53] LABS: Alanine Aminotransferase 22 U/L (12-78); Albumin Level 4.3 g/dl (3.5-5.0); Alkaline Phosphatase 46 U/L (38-126); Anion Gap 10.5 mEq/L (5-15); Aspartate Amino Transferase 29 U/L (17-59); Bilirubin,Direct 0.2 mg/dl (0.0-0.4); Bilirubin,Indirect 0.4 mg/dL (0.0-0.9); Bilirubin,Total 0.6 mg/dl (0.2-1.3); Bilirubin,Unconjugated 0.4 mg/dL (0.0-1.1); Blood Urea Nitrogen 30 mg/dl (9-20); Calcium 9.9 mg/dl (8.4-10.2); Carbon Dioxide 29 mmol/L (22.0-30.0); Chloride 107 mmol/L (98-107); Chol/HDL Ratio 4.1 (1-3.5); Cholesterol 239 mg/dl (140-200); Estimated Glomerular Filt Rate 58 ml/min (>60); GFR (African American) 70 ML/MIN (>60); Glucose 114 mg/dl (74-100); HDL Cholesterol 59 mg/dl (40-60); Magnesium 1.9 mg/dl (1.6-2.3); Potassium 4.5 mmoL/L (3.5-5.1); Sodium 142 mmol/L (136-145); Total Protein,Serum 6.9 g/dl (6.3-8.2); Triglycerides 101 mg/dl (30-150); VLDL Cholesterol 20 mg/dL (0-40)
[2023-07-04 09:04] LABS: Direct LDL Cholesterol 127.06 mg/dL (100-129)
[2023-07-04 09:11] LABS: Free T4 (Free Thyroxine) 0.73 ng/dl (0.78-2.19)
[2023-07-04 09:24] LABS: Thyroid Stimulating Hormone 2.29 uIU/mL (0.465-4.68)
[2023-07-04 09:59] LABS: Vitamin B12 509 pg/mL (239-931)
== END 2023-07-04 23:59 | disposition home or self-care (01) ==
LOC: RT 07:38
PROVIDERS: PCP Internal Medicine; Visit Provider Physician Assistant
DX: R42 Dizziness and giddiness (principal); R53.83 Other fatigue; R06.09 Other forms of dyspnea; I10 Essential (primary) hypertension; E78.2 Mixed hyperlipidemia; N18.9 Chronic kidney disease, unspecified; I48.20 Chronic atrial fibrillation, unspecified; I51.89 Other ill-defined heart diseases; R94.30 Abnormal result of cardiovascular function study, unspecified; I25.10 Atherosclerotic heart disease of native coronary artery without angina pectoris
CPT/HCPCS: 36415; 80048; 80061; 80076; 82607; 82746; 83735; 84439; 84443; 85025; 93880

== ENCOUNTER 2023-07-15 17:08 | Emergency (ER) | payer MEDICARE, OTHER, SELFPAY ==
[2023-07-15 17:09] VITALS: BP 139/87; PULSE 94; RESP 18; TEMP 36.5; O2SAT 97; BMI 25.0
--- NOTE | 2023-07-15 17:12 | PC.NURSE ---
Dr. Cline at [facility] for pt eval
--- NOTE | 2023-07-15 17:22 | CT_ITS ---
PROCEDURE INFORMATION: Exam: CT Thoracic Spine Without Contrast Exam date and time: 07/15/2023 5:48 PM Age: 78 years old Clinical indication: Pain in thoracic spine; Additional info: Mid thoracic back pain TECHNIQUE: Imaging protocol: Computed tomography of the thoracic spine without contrast. Radiation optimization: All CT scans at this facility use at least one of these dose optimization techniques: automated exposure control; mA and/or kV adjustment per patient size (includes targeted exams where dose is matched to clinical indication); or iterative reconstruction. COMPARISON: MR CERVICAL SPINE WO CON 07/06/2022 5:20 PM FINDINGS: Bones/joints: No acute fracture. Normal alignment. No significant disc bulge or herniation. No severe spinal canal stenosis. No significant neural foraminal narrowing. Soft tissues: Unremarkable. IMPRESSION: Unremarkable CT Spine.
--- NOTE | 2023-07-15 17:24 | HMH.EDGENADL ---
Discharge Plan Disposition Patient Disposition: Home, Self-Care Prescriptions Prescriptions: New lidocaine 4 % adhesive patch,medicated 1 patch topical DAILY Qty: 5 0RF Rx Instructions: may leave on for up to 12 hrs No Action citalopram 20 mg tablet 20 mg PO DIRECTED azelastine 137 mcg (0.1 %) aerosol,spray 1 spray intranasal BID Qty: 30 2RF Rx Instructions: administer into each nostril amlodipine 10 mg tablet 10 mg PO DAILY tramadol 50 mg tablet 50 mg PO BID Eliquis 5 mg tablet 5 mg PO BID valsartan 80 mg tablet 80 mg PO DAILY Qty: 90 3RF methocarbamol 500 mg tablet 500 mg PO BID Qty: 60 2RF tizanidine 4 mg tablet 4 mg PO .prn 30 Days Qty: 30 2RF oxybutynin chloride 10 MG tablet extended release 24 hr 10 mg PO DAILY Referrals Follow up/Referrals: Addy Lara MD [Primary Care Provider] - See instructions Activity Restrictions/Add. Instructions Additional Instructions/Restrictions: No evidence of musculoskeletal emergency or neurovascular emergency. This is not consistent with referred visceral pain such as from your gallbladder as discussed. This is most consistent with musculoskeletal strain from your attempts to recently do pull-ups causing localized injury. Please continue to take your methocarbamol tramadol and may take Tylenol in addition to the lidocaine patches that were prescribed return with any significant worsening symptoms. Clinical Impressions Clinical Impression: Strain of right latissimus dorsi muscle Instructions Patient Instructions: DI for Low Back Pain Discharge ED Provider: Milo Cline General Adult HPI General Chief complaint: Back Pain/Injury Stated complaint: Upper back pain Time Seen by Provider: 07/15/23 17:10 Mode of Arrival: Ambulatory Source of Information: Patient Limitations: No Limitations Description of Symptoms (Recalled from ER Triage Doc. by RN): pt presents to ED c/o back pain x 1 month. pt reports pain started a few days after doing a chin up. pt denies any urinary symptoms. History of Present Illness HPI narrative: Is an 78-year-old male presenting today with right lateral paraspinal back pain. Patient states that about 1 month ago he was attempting to do a chin up when he felt a significant strain in the right paraspinal musculature just medial to his scapula. Since that time it is significantly worsened to worse with any type of movement or touch. He does have chronic pain and is on tramadol and Robaxin without any significant improvement. Patient denies any anterior pain such as chest pain abdominal pain etc. Denies any midline pain. Denies any neurologic symptoms. Denies any fevers or chills. Related Data Home Medications Medication Instructions Recorded Confirmed oxybutynin chloride 10 mg 10 mg PO DAILY URINARY 08/31/21 07/09/23 tablet,extended release 24 hr apixaban 5 mg tablet (Eliquis) 5 mg PO BID ATRIAL FIB 11/07/22 07/09/23 amlodipine 10 mg tablet 10 mg PO DAILY 02/26/23 07/09/23 citalopram 20 mg tablet 20 mg PO DIRECTED 03/27/23 07/09/23 tramadol 50 mg tablet 50 mg PO BID 06/27/23 07/09/23 Previous Rx's Medication Instructions Recorded valsartan 80 mg tablet 80 mg PO DAILY . #90 tabs 01/09/23 methocarbamol 500 mg tablet 500 mg PO BID Pain #60 tabs 05/09/23 tizanidine 4 mg tablet 4 mg PO .prn MOOD 30 days #30 tabs 05/09/23 azelastine 137 mcg (0.1 %) nasal 1 spray intranasal BID #30 mL 07/09/23 spray aerosol lidocaine 4 % topical patch 1 patch topical DAILY #5 ea 07/15/23 Allergies Allergy/AdvReac Type Severity Reaction Status Date / Time atorvastatin AdvReac Intermediate Muscle Pain Verified 07/09/23 14:18 [facility] Disclaimer: The information contained in this section may have been updated after the patient was seen, as this information can be updated by other users. Medical History (Updated 07/15/23 @ 17:24 by Milo Cline MD) High frequency hearing loss Foot drop, right Otitis externa of left ear Acute left otitis media Hearing loss Impacted cerumen Fatigue Dyspnea Overactive bladder Depression Arthritis Rosacea History of COVID-19 History of gastroesophageal reflux (GERD) Allergies History of cataract Hypertension Atrial fibrillation Skin cancer Bloating Gastroesophageal reflux disease WILIAM (obstructive sleep apnea) CAD (coronary artery disease) Abnormal electrocardiography Abnormal cardiovascular stress test Atypical angina Surgical History History of cataract surgery History of bladder surgery H/O hemorrhoidectomy Family History Other No significant family history Social History Smoking Status: Former smoker tobacco type: cigarettes packs per day: 1 second hand exposure: No alcohol intake: current alcohol intake frequency: a few times a week counseling provided: none substance use type: denies use current occupational status: retired Travel in the last 8 weeks: None household members: other housing: house current occupation: retired current occupational exposures/hazards: No caffeine: Yes ROS Obtained: Yes All systems reviewed & no additional complaints except as documented Physical Exam General General appearance: alert Respiratory Respiratory exam: Present normal lung sounds bilaterally Cardiovascular Cardiovascular exam: Present regular rate and normal rhythm Abdominal Exam Abdominal exam: Present soft; Absent distention or tenderness Back Exam Back 1 view image: 1. Tender to palpation no evidence of a significant rash soft tissue abnormalities also no midline spine tenderness in this region normal neurologic exam and vascular exam in upper extremities Neurological Exam Neurological exam: Present alert and oriented X3 Medical Decision Making Reji Inquiry Pt receiving controlled substance: No Vital Signs: 07/15/23 17:09 07/15/23 17:30 07/15/23 17:39 Temperature 97.7 F Temperature Source Oral Pulse Rate 90 85 Pulse Rate [Right Radial] 94 H Respiratory Rate 18 Blood Pressure 147/87 H 139/91 H Blood Pressure [Right Arm] 139/87 Blood Pressure Mean 107 Blood Pressure Mean [Right Arm] 104 Blood Pressure Source Blood Pressure Source [Right Arm] Automatic Cuff Blood Pressure Position Blood Pressure Position [Right Arm] Sitting 02 Sat by Pulse Oximetry 97 98 98 Oxygen Delivery Method Room Air Room Air Room Air 07/15/23 18:30 07/15/23 18:44 Temperature Temperature Source Pulse Rate 91 H 97 H Pulse Rate [Right Radial] Respiratory Rate 16 18 Blood Pressure 124/79 124/79 Blood Pressure [Right Arm] Blood Pressure Mean 106 Blood Pressure Mean [Right Arm] Blood Pressure Source Automatic Cuff Blood Pressure Source [Right Arm] Blood Pressure Position Sitting Blood Pressure Position [Right Arm] 02 Sat by Pulse Oximetry 97 99 Oxygen Delivery Method Room Air Orders (Tests/Meds): ED MEDICATIONS Discontinued Medications Generic Name Dose Route Start Last Admin Trade Name Freq PRN Reason Stop Dose Admin Acetaminophen 1,000 mg 07/15/23 17:22 05/06/24 17:31 Acetaminophen 500mg Tab PO 07/15/23 17:23 1,000 mg ONCE ONE Administration Lidocaine 1 each 07/15/23 17:22 07/15/23 17:32 Lidocaine 5% Transdermal Patch TP 07/15/23 17:23 1 each ONCE ONE Administration ORDERS Category Date Time Status CT thoracic spine wo con Stat Cat Scan 07/15/23 17:22 Completed Medical Decision Narrative: Patient is an 78-year-old male presenting today with paraspinal muscular pain after attempting to do a pull-up 1 month ago most consistent with a latissimus dorsi muscle strain versus tear. He is already on tramadol and Robaxin without any significant improvement. He has not tried any Tylenol we will administer that in addition to lidocaine patch. He has been told due to chronic kidney disease that he cannot have NSAIDs his creatinine recently was 1.2 had a risk-benefit discussion with him regarding this but he is also on Eliquis which could increase his risk of bleeding and he declined this. At the moment I do not believe opiates are indicated. 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 Additionally this is not consistent with referred pain such as with AAA, thoracic aneurysm, gallbladder disease etc. It is superficial and worsening with pain and touch all consistent with musculoskeletal etiology. He also has a mechanism to explain this. Will reassess after his medications are administered. Reassessment 7:03 PM patient feeling much better range of motion has improved. Supportive care discussed CT scan performed which I first interpreted also reviewed radiology read showing no acute abnormalities. Patient was discharged in a stable and improved condition. Critical Care Critical Care Time Critical Care Time: No
[2023-07-15 17:30] VITALS: BP 147/87; PULSE 90; O2SAT 98
[2023-07-15] MEDS: ACETAMINOPHEN 500MG TAB 1000 MG PO (17:31)
[2023-07-15] MEDS: LIDOCAINE 5% TRANSDERMAL PATCH 1 EACH TP (17:32)
[2023-07-15 17:39] VITALS: BP 139/91; PULSE 85; O2SAT 98
[2023-07-15 18:30] VITALS: BP 124/79; PULSE 91; RESP 16; O2SAT 97
[2023-07-15 18:44] VITALS: BP 124/79; PULSE 97; RESP 18; O2SAT 99
[2023-07-15 19:07] VITALS: BP 156/90; PULSE 87; RESP 18; TEMP 36.6; O2SAT 96
== END 2023-07-15 19:09 | disposition home or self-care (01) ==
PROVIDERS: Emergency Provider Student in an Organized Health Care Education/Training Program; PCP Internal Medicine
DX: M54.6 Pain in thoracic spine (principal); S29.012A Strain of muscle and tendon of back wall of thorax, initial encounter; X50.0XXA Overexertion from strenuous movement or load, initial encounter
CPT/HCPCS: 72128; 99284

== ENCOUNTER 2023-10-21 09:42 | Outpatient (CLI) | payer MEDICARE, OTHER, SELFPAY ==
[2023-10-21 09:48] LABS: MANUAL DIFFERENTIAL MANUAL DIFFERENTIAL (MANUAL DIFF)
[2023-10-21 10:03] LABS: Basophils # 0.1 K/mm3 (0-0.2); Basophils % 1.1 % (0.1-2.0); Eosinophils # 0.2 K/mm3 (0.0-0.4); Eosinophils % 2.3 % (0.1-12.0); Hematocrit 51.3 % (42.0-52.0); Hemoglobin 16.4 g/dL (14.1-18.0); Lymphocytes # 2.3 K/mm3 (0.7-4.5); Lymphocytes % 30.5 % (10-50); Mean Corpuscular HGB Conc 31.9 g/dL (31.8-35.4); Mean Corpuscular Volume 100.6 fl (80-94); Mean Platelet Volume 9.4 fl (7.4-10.4); Monocytes # 0.7 K/mm3 (0.1-1.0); Monocytes % 8.6 % (1.7-9.3); Neutrophils # 4.4 K/mm3 (1.8-7.8); Neutrophils % 57.5 % (37.0-80.0); Platelet Count 154 K/mm3 (142-424); Red Cell Distribution Width 13.8 % (11.5-17.5); White Blood Count 7.7 K/mm3 (4.8-10.8)
[2023-10-21 10:35] LABS: Albumin Level 4.3 g/dl (3.5-5.0); Chloride 106 mmol/L (98-107); Sodium 140 mmol/L (136-145)
[2023-10-21 10:36] LABS: Potassium 4.7 mmoL/L (3.5-5.1)
[2023-10-21 10:38] LABS: Alanine Aminotransferase 23 U/L (12-78); Albumin/Globulin Ratio 1.7 (1.1-1.8); Alkaline Phosphatase 47 U/L (38-126); Anion Gap 9.7 mEq/L (5-15); Aspartate Amino Transferase 27 U/L (17-59); Bilirubin,Total 0.8 mg/dl (0.2-1.3); Blood Urea Nitrogen 32 mg/dl (9-20); Carbon Dioxide 29 mmol/L (22.0-30.0); Estimated Glomerular Filt Rate 49 ml/min (>60); GFR (African American) 59 ML/MIN (>60); Globulin 2.5 g/dL (1.3-3.2); Total Protein,Serum 6.8 g/dl (6.3-8.2)
[2023-10-21 10:39] LABS: Calcium 9.3 mg/dl (8.4-10.2); Glucose 103 mg/dl (74-100)
[2023-10-21 11:09] LABS: Thyroid Stimulating Hormone 3.07 uIU/mL (0.465-4.68)
[2023-10-21 11:55] LABS: Vitamin B12 520 pg/mL (239-931)
[2023-10-21 14:20] LABS: Eosinophils % 1 % (0-3); Lymphocytes % 29 % (10-50); Macrocytosis 1+; Monocytes % 6 % (2-9); Neutrophils % 64 % (42-76); Platelet Estimate Normal; Total Cells Counted 100
[2023-10-24 11:14] LABS: Vitamin B1 134.7 nmol/L (66.5-200.0)
== END 2023-10-21 23:59 | disposition home or self-care (01) ==
LOC: LAB 09:43
PROVIDERS: PCP Internal Medicine; Visit Provider Specialist
DX: R20.0 Anesthesia of skin (principal); F10.10 Alcohol abuse, uncomplicated; G62.9 Polyneuropathy, unspecified; M21.371 Foot drop, right foot; R53.83 Other fatigue
CPT/HCPCS: 36415; 80053; 82607; 82746; 84425; 84443; 85007; 85014; 85018; 85048; 85049

== ENCOUNTER 2023-10-31 14:04 | Outpatient (POV) | payer MEDICARE, OTHER, SELFPAY ==
[2023-10-31 14:45] VITALS: BP 130/88; PULSE 102; RESP 16; O2SAT 96; BMI 25.7
--- NOTE | 2023-10-31 14:48 | A.OFFVIS_ITS ---
[facility] Disclaimer: The information contained in this section may have been updated after the patient was seen, as this information can be updated by other users. Medical History Fungal otitis externa Tinnitus, left ear Decreased hearing of left ear High frequency hearing loss moderate severe high frequency SNHL>1KHZ, worse in left per Audiometric Foot drop, right Acute left otitis media Hearing loss Impacted cerumen Fatigue Dyspnea Overactive bladder Depression Arthritis Rosacea History of COVID-19 History of gastroesophageal reflux (GERD) Allergies History of cataract Hypertension Atrial fibrillation Skin cancer Bloating Gastroesophageal reflux disease WILIAM (obstructive sleep apnea) CAD (coronary artery disease) OCT 2020-Mild nonflow limiting coronary disease with preserved ejection fraction Mildly elevated LVEDP consistent with diastolic dysfunction Abnormal electrocardiography Abnormal cardiovascular stress test Atypical angina Surgical History History of tonsillectomy and adenoidectomy History of cataract surgery History of bladder surgery H/O hemorrhoidectomy Family History Other No significant family history Social History Smoking Status: Former smoker tobacco type: cigarettes packs per day: 1 second hand exposure: No alcohol intake: current alcohol intake frequency: a few times a week counseling provided: none substance use type: denies use current occupational status: retired Travel in the last 8 weeks: None household members: other housing: house current occupation: retired current occupational exposures/hazards: No caffeine: Yes PM Subjective & Objective Subjective Subjective:: Patient is a pleasant 78-year-old male who presents today for follow-up and medication refill. Today he rates his pain a 7 out of 10. Patient denies any new trauma or injury. He does state that he is having a lot more pain in and around his right shoulder and mid back area. He does describe it as a constant aching, throbbing sensation that hurts with palpation. He does state the pain is interfering with his ability perform activities of daily living such as cooking and cleaning. Patient is currently managed with tizanidine at night, methocarbamol twice a day and tramadol 50 mg 3 times a day. He denies any side effects from these medications. He does state that he is also on the gabapentin from an outside provider and did just get oral steroids by Dr. Lara today. His Reji has been reviewed and is appropriate. Review of Systems: General: No recent weight changes, no fever, no sleep disturbances Respiratory: No cough, no shortness of air, no recurring pulmonary infections Cardiovascular/peripheral vascular: No chest pain, no palpitations, no edema, no shortness of breath Gastrointestinal: No new onset incontinence, normal bowel movements reported Genitourinary: No new onset incontinence Musculoskeletal: Right shoulder pain, right mid back pain, right neck pain Psychiatric: [Normal mood/affect] Neurological: [Denies weakness in extremities], [denies balance issues] Pain at rest (0-10 scale): 7 Objective Objective:: Physical Exam: General: Alert and oriented x3, no acute distress, pleasant and cooperative Lungs: Respirations even and unlabored, symmetrical chest expansion Eyes: PERRL Musculoskeletal: Flexion and extension of cervical [spine] somewhat guarded secondary to pain, [antalgic gait noted] point tenderness along right trapezius, right rhomboid and right thoracic paraspinous muscles Neurological: Speech clear, no gross sensory deficit Has patient had previous pain injection?: No Conservative treatment options previously tried: Home exercise plan Length of treatment: Longer than 6 weeks Meds Home Medications and Allergies Home Medications ?Medication ?Instructions ?Recorded ?Confirmed ?Type oxybutynin chloride 10 mg 10 mg PO DAILY URINARY 08/31/21 10/31/23 History tablet,extended release 24 hr apixaban 5 mg tablet (Eliquis) 5 mg PO BID ATRIAL FIB 11/07/22 10/31/23 History valsartan 80 mg tablet 80 mg PO DAILY . #90 tabs 01/09/23 10/31/23 Rx amlodipine 10 mg tablet 10 mg PO DAILY 02/26/23 10/31/23 History tramadol 50 mg tablet 50 mg PO BID 06/27/23 10/31/23 History azelastine 137 mcg (0.1 %) nasal 1 spray intranasal BID #30 mL 07/09/23 10/31/23 Rx spray lidocaine 4 % topical patch 1 patch topical DAILY #5 ea 07/15/23 10/31/23 Rx thiamine HCl (vitamin B1) 250 mg 250 mg PO DAILY Neuropathy #90 tabs 10/01/23 10/31/23 Rx tablet citalopram 20 mg tablet See Rx Instructions .Route 10/11/23 10/31/23 Rx .COMPLEX #90 tabs tizanidine 4 mg tablet 4 mg PO .prn MOOD 30 days #30 tabs 10/17/23 10/31/23 Rx Livalo 2 mg tablet (pitavastatin 2 mg PO DAILY #30 tabs 10/29/23 10/31/23 Rx calcium) alendronate 35 mg tablet 35 mg PO ONCE 10/29/23 10/31/23 History methocarbamol 500 mg tablet 500 mg PO BID PRN Pain 10/29/23 10/31/23 History prednisone 10 mg tablet 10 mg PO DIRECTED #32 tabs 10/29/23 10/31/23 Rx New Prescriptions to Start Prescriptions: Allergies Allergy/AdvReac Type Severity Reaction Status Date / Time atorvastatin AdvReac Intermediate Muscle Pain Verified 10/29/23 15:11 Assessment and Plan *Assessment and plan (1) Myofascial pain: Status: Acute Category: Medical Code(s): M79.18 - Myalgia, other site Plan Patient is having worsening pain and point tenderness along his right trapezius, right rhomboid and right thoracic paraspinous muscles. I did discuss with patient that he may benefit from trigger point injections of this area. Risk and benefits were discussed with the patient and he would like to proceed forward with this plan of care. I will also send in refills on his tizanidine and he states he does not need any other refills on any of the other medication. Patient has tried conservative treatment including continued at home stretching exercise for longer than 6 weeks. Patient will be scheduled for trigger point injections of his right trapezius, right rhomboid and right thoracic paraspinous muscles. We will not be using any fluoroscopic guidance or ultrasound for these injections. Patient has been instructed to contact the clinic with any concerns before the next appointment. Dr. Meza has reviewed this note and agrees with this plan of care. This note was dictated using voice recognition software and make contain errors or omissions. All injections are used with Lidocaine or Bupivacaine and Depo Medrol.
== END 2023-10-31 23:59 | disposition home or self-care (01) ==
PROVIDERS: PCP Internal Medicine; Visit Provider Nurse Practitioner Family
DX: M79.18 Myalgia, other site (principal); Z87.891 Personal history of nicotine dependence; Z73.89 Other problems related to life management difficulty; Z79.899 Other long term (current) drug therapy
CPT/HCPCS: 99212; G0463

== ENCOUNTER 2023-12-30 10:58 | Outpatient (POV) | payer MEDICARE, OTHER, SELFPAY ==
--- NOTE | 2023-12-30 11:23 | EXP.PAIN.SOA ---
[facility] Disclaimer: The information contained in this section may have been updated after the patient was seen, as this information can be updated by other users. Medical History Fungal otitis externa Tinnitus, left ear Decreased hearing of left ear High frequency hearing loss moderate severe high frequency SNHL>1KHZ, worse in left per Audiometric Foot drop, right Acute left otitis media Hearing loss Impacted cerumen Fatigue Dyspnea Overactive bladder Depression Arthritis Rosacea History of COVID-19 History of gastroesophageal reflux (GERD) Allergies History of cataract Hypertension Atrial fibrillation Skin cancer Bloating Gastroesophageal reflux disease WILIAM (obstructive sleep apnea) CAD (coronary artery disease) OCT 2020-Mild nonflow limiting coronary disease with preserved ejection fraction Mildly elevated LVEDP consistent with diastolic dysfunction Abnormal electrocardiography Abnormal cardiovascular stress test Atypical angina Surgical History History of tonsillectomy and adenoidectomy History of cataract surgery History of bladder surgery H/O hemorrhoidectomy Family History Other No significant family history Social History Smoking Status: Former smoker tobacco type: cigarettes packs per day: 1 second hand exposure: No alcohol intake: current alcohol intake frequency: a few times a week counseling provided: none substance use type: denies use current occupational status: retired Travel in the last 8 weeks: None household members: other housing: house current occupation: retired current occupational exposures/hazards: No caffeine: Yes PM Subjective & Objective Subjective Subjective:: Patient is a pleasant 78-year-old male who presents today for follow-up of trigger point injections of his right trapezius, rhomboid and right thoracic paraspinous muscles on 11/19/2023. Today he rates his pain a 4 out of 10. Patient does state that these injections do help providing at least 50% improvement however they are often very temporary. Patient states that he really feels like he only got a few days out of these. He states that he still having the 1 pain they are at his mid back that is just been constant since around August this year. Patient does state the pain interferes with his ability perform activities of daily living such as cooking and cleaning. Patient states that he is unsure whether or not if it is a herniated disc or bulging disc or blood. Patient denies any recent MRI imaging of his mid back. Patient is prescribed tizanidine at night, methocarbamol twice a day and tramadol 50 mg 3 times a day from our office. He denies any side effects from this medication. His Reji has been reviewed and is appropriate. Review of Systems: General: No recent weight changes, no fever, no sleep disturbances Respiratory: No cough, no shortness of air, no recurring pulmonary infections Cardiovascular/peripheral vascular: No chest pain, no palpitations, no edema, no shortness of breath Gastrointestinal: No new onset incontinence, normal bowel movements reported Genitourinary: No new onset incontinence Musculoskeletal: Mid back pain Psychiatric: [Normal mood/affect] Neurological: [Denies weakness in extremities], [denies balance issues] Pain at rest (0-10 scale): 4 Objective Objective:: Physical Exam: General: Alert and oriented x3, no acute distress, pleasant and cooperative Lungs: Respirations even and unlabored, symmetrical chest expansion Eyes: PERRL Musculoskeletal: Flexion and extension of thoracic [spine] somewhat guarded secondary to pain, [antalgic gait noted] Neurological: Speech clear, no gross sensory deficit Has patient had previous pain injection?: Yes Percent improvement in pain since last injection: 50% Conservative treatment options previously tried: Home exercise plan Length of treatment: Longer than 12 weeks Meds Home Medications and Allergies Home Medications ?Medication ?Instructions ?Recorded ?Confirmed ?Type oxybutynin chloride 10 mg 10 mg PO DAILY URINARY 08/31/21 12/02/23 History tablet,extended release 24 hr apixaban 5 mg tablet (Eliquis) 5 mg PO BID ATRIAL FIB 11/07/22 12/02/23 History valsartan 80 mg tablet 80 mg PO DAILY . #90 tabs 01/09/23 12/02/23 Rx amlodipine 10 mg tablet 10 mg PO DAILY 02/26/23 12/02/23 History azelastine 137 mcg (0.1 %) nasal 1 spray intranasal BID #30 mL 07/09/23 12/02/23 Rx spray lidocaine 4 % topical patch 1 patch topical DAILY #5 ea 07/15/23 12/02/23 Rx thiamine HCl (vitamin B1) 250 mg 250 mg PO DAILY Neuropathy #90 tabs 10/01/23 12/02/23 Rx tablet citalopram 20 mg tablet See Rx Instructions .Route 10/11/23 12/02/23 Rx .COMPLEX #90 tabs Livalo 2 mg tablet (pitavastatin 2 mg PO DAILY #30 tabs 10/29/23 12/02/23 Rx calcium) alendronate 35 mg tablet 35 mg PO ONCE 10/29/23 12/02/23 History methocarbamol 500 mg tablet 500 mg PO BID PRN Pain 10/29/23 12/02/23 History tizanidine 4 mg tablet 4 mg PO .prn MOOD 30 days #30 tabs 10/31/23 12/02/23 Rx tramadol 50 mg tablet 50 mg PO TID #90 tabs 12/23/23 Rx New Prescriptions to Start Prescriptions: Allergies Allergy/AdvReac Type Severity Reaction Status Date / Time atorvastatin AdvReac Intermediate Muscle Pain Verified 12/02/23 13:34 Assessment and Plan *Assessment and plan (1) Thoracic spondylosis without myelopathy: Status: Acute Category: Medical Code(s): M47.814 - Spondylosis without myelopathy or radiculopathy, thoracic region (2) Thoracic back pain: Status: Acute Category: Medical Code(s): M54.6 - Pain in thoracic spine Plan Patient continues to experience significant pain in 1 area of his mid back along the right side. Patient was counseled that we will plan on ordering x-ray and MRI without contrast of his thoracic spine to give more details of exactly what is going on in this area. Patient agrees with this plan of care. Patient has tried and failed conservative therapy including continued at home stretching exercise for longer than 12 weeks. Patient will be scheduled for a 1 month follow-up to review imaging results. Patient has been instructed to contact the clinic with any concerns before the next appointment. Dr. Meza has reviewed this note and agrees with this plan of care. This note was dictated using voice recognition software and make contain errors or omissions. All injections are used with Lidocaine or Bupivacaine and Depo Medrol.
[2023-12-30 11:24] VITALS: BP 116/71; PULSE 88; RESP 18; O2SAT 96; BMI 25.4
== END 2023-12-30 23:59 | disposition home or self-care (01) ==
LOC: SC.PAIN 11:00
PROVIDERS: PCP Internal Medicine; Visit Provider Nurse Practitioner Family
DX: M47.814 Spondylosis without myelopathy or radiculopathy, thoracic region (principal); M54.6 Pain in thoracic spine
CPT/HCPCS: 99212; G0463

== ENCOUNTER 2023-12-30 11:34 | Outpatient (CLI) | payer MEDICARE, OTHER, SELFPAY ==
--- NOTE | 2023-12-30 11:44 | XR_ITS ---
PROCEDURE INFORMATION: Exam: XR Thoracic Spine Exam date and time: 12/30/2023 12:07 PM Age: 78 years old Clinical indication: Pain in thoracic spine TECHNIQUE: Imaging protocol: Radiologic exam of the thoracic spine. Views: 3 views. COMPARISON: CT THORACIC SPINE WO CON 07/15/2023 5:48 PM FINDINGS: Bones/joints: Minor vertebral body height loss in the T8 and T9, grossly unchanged from prior exam. No evidence of acute fracture or malalignment. Multi-level bridging or beaked disc osteophytes in the lower thoracic spine compatible with diffuse idiopathic skeletal hyperostosis (DISH). Soft tissues: Unremarkable. IMPRESSION: 1. No evidence of acute osseous abnormality in the thoracic spine. 2. 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
== END 2023-12-30 23:59 | disposition home or self-care (01) ==
LOC: RAD 11:35
PROVIDERS: PCP Internal Medicine; Visit Provider Nurse Practitioner Family
DX: M47.814 Spondylosis without myelopathy or radiculopathy, thoracic region (principal); M54.6 Pain in thoracic spine
CPT/HCPCS: 72072; 99212; G0463

== ENCOUNTER 2024-01-20 12:36 | Outpatient (CLI) | payer MEDICARE, OTHER, SELFPAY ==
--- NOTE | 2024-01-20 12:36 | MR_ITS ---
FINAL REPORT CLINICAL HISTORY: Back Pain COMPARISON: 11/09/2021 FINDINGS: Multiplanar MR imaging of the lumbar spine was performed without contrast. On the sagittal T2-weighted images, multilevel disc degeneration is seen. There are Schmorl's nodes at multiple levels. The vertebral alignment is normal. There is no evidence of fracture. No bony mass is identified. The conus is seen at approximately the L1 level and has an unremarkable appearance. L1-2: Annular disc bulge with facet arthropathy and osteophytes. There is moderate bilateral neuroforaminal narrowing. L2-3: Annular disc bulge with facet arthropathy and osteophytes. There is a right foraminal disc protrusion with moderate right and mild left neuroforaminal narrowing. L3-4: Annular disc bulge with facet arthropathy and osteophytes. There is moderate bilateral neuroforaminal narrowing. L4-5: Annular disc bulge with facet arthropathy. There is moderate bilateral neuroforaminal narrowing. L5-S1: Annular disc bulge with facet arthropathy and moderate bilateral neuroforaminal narrowing. IMPRESSION: Multilevel degenerative disc disease with moderate neuroforaminal narrowing as above, stable from prior exam. Reviewed, Interpreted and Dictated by Tristen Connolly III, MD Transcribed by Lori Dumont Authenticated and . [facility]
== END 2024-01-20 23:59 | disposition home or self-care (01) ==
LOC: RAD 12:36
PROVIDERS: PCP Internal Medicine; Visit Provider Specialist
DX: M88.89 Osteitis deformans of multiple sites (principal); S29.012A Strain of muscle and tendon of back wall of thorax, initial encounter; M21.371 Foot drop, right foot; M54.16 Radiculopathy, lumbar region
CPT/HCPCS: 72148

== ENCOUNTER 2024-01-29 15:00 | Outpatient (RCR) | payer MEDICARE, OTHER, SELFPAY ==
--- NOTE | 2024-01-23 17:41 | HMH.PTOPEV ---
PT Outpatient Evaluation Rehab PT Outpatient Evaluation Start: 01/23/24 15:21 Freq: Status: Active Protocol: Document 01/23/24 16:36 SWATI (Rec: 01/23/24 17:40 SWATI [id number]) E-signed By Laith Walker, PT Outpatient Therapy Subjective History Subjective History Patient is an 78 year old male presenting to outpatient PT with reports of chronic right sided cervical, thoracic and lumbar spine pain. 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 Thoracolumbar pain of insidious onset starting approximately 6 months ago. Most recent imaging indicates multi-level DDD in cervical and lumbar spine. Other comorbidities include atrial fibrillation. New diagnosis of cancer in past 12 No months? Chief Complaint Pain,Stiff,Paresthesia, Weakness Symptom Type Ache,Numbness,Tingling Symptoms Relieved By Rest/Positioning,Prescription Meds Symptoms Aggravated By Standing,Bending/Stooping, Physical Activity,Twisting, Walking,Lifting Prior Functional Limitations Lifting,Standing,Walking, Bending/Stooping Current Functional Limitations Lifting,Housework,Sleeping, Standing,Walking,Bending/ Stooping Symptom Description Constant but Variable Level of pain today (0-10) 4 Pain scale - at its best (0-10) 4 Pain scale - at its worst (0-10) 8 Cervical Eval Palpation Cervical Muscles R Cervical Paraspinal,R Suboccipital,R CT Junction,R Upper Trapezius,R Thoracic Paraspinals Posture Head/C-Spine Posture Sitting Position Excess Extension Head/C-Spine Posture Standing Position Excess Extension Flexibility Deficits Upper Trapezius Muscle Length (R) Moderate Tightness Levaetor Scapulae Muscle Length (R) Moderate Tightness Scalene Group Muscle Length (R) Moderate Tightness Pectoralis Minor Muscle Length (R) Moderate Tightness Passive Joint Mobility Cervical PIVM Dec: R OA L OA R AA L AA R C2/3 L C2/3 R C3/4 L C3/4 R C4/5 L C4/5 R C5/6 L C5/6 R C6/7 L C6/7 R C7/T1 L C7/T1 AROM Cervical Spine Extension Active Range of 36 Motion (degrees) Cervical Spine Flexion Active Range of 27 Motion (degrees) Cervical Spine Right Lateral Flexion 7 Active Range of Motion (degrees) Cervical Spine Left Lateral Flexion 13 Active Range of Motion (degrees) Cervical Spine Right Rotation Active 26 Range of Motion (degrees) Cervical Spine Left Rotation Active 31 Range of Motion (degrees) MMT Right Deltoid (C5) 4- Good- Biceps Brachii Strength Grade 4 Good Wrist Extension Strength Grade 4 Good Triceps Brachii Strength Grade 4- Good- Wrist Flexion Strength Grade 4 Good Extensor Pollicis Longus Strength Grade 4 Good Finger Abduction Strength Grade 4- Good- Altered Sensation Upper extremity Dermatomes C6,C7,C8 Comment NT Special Test C-Spine Foraminal Compression (Spurling) Positive Right Test C-Spine Foraminal Distraction Test Positive Lumbopelvic Eval Posture Thoracic Spine Posture Standing Position Increased Kyphosis Lumbar Spine Posture Standing Position Decreased Lordosis Palapation tenderness right thoracic spinal tenderness Yes: T7-10 3/4 lumbar spinal tenderness Yes: R QL 3/4 Accessory Movement L2 right L3 right L4 right L5 right S1 right Range of Motion Lumbar Spine Active Flexion Range of 68 Motion (degrees) Lumbar Spine Active Extension Range of 12 Motion (degrees) Left Lumbar Spine Lateral Flexion Active 17 Range of Motion (degrees) Right Lumbar Spine Lateral Flexion 15 Active Range of Motion (degrees) Lumbar Spine ROM Limitations Soft Tissue Tightness,Bony Restriction Manual Muscle Test Right Knee Extension Strength Grade 4 Good Knee Flexion Strength Grade 5 Normal Hip Flexion Strength Grade 4- Good- Ankle Dorsiflexion Strength Grade 4 Good Gastronemius/Soleus Strength Grade 4 Good Altered Sensation LE Dermatome Level L5,S1 Comment pain/NT Special Tests Hip Roman (DEANNE) Test Positive Right Hip Yon Test Positive Right Hip Piriformis Test Positive Right Sciatic Nerve Tension Test Positive Right Sammy Test Positive Sacroiliac Joint Distraction Test Negative Left,Negative Right Lumbar Spine Hunter Test Negative Left,Negative Right Lumbar Long [place] Distraction Test/Manual Positive Traction Oswestry Index Section 1 Pain Intensity The pain is moderate and does not vary much Section 2 Personal Care (Washing,Dresing) change my way of washing or dressing in order to avoid pain Section 3 Lifting I can only lift very light weights at most Section 4 Walking I cannot walk at all without increasing pain Section 5 Sitting Pain prevents me from sitting for more than one hour Section 6 Standing I cannot stand more than 10 minutes without increasing pain Section 7 Sleeping Because of pain, my normal nights sleep is less than 2 hours sleep Section 8 Social Life Pain has restricted my social life and I do not go out often Section 9 Traveling Pain restricts me to short necessary journeys under 30 minutes Section 10 Changing Degreee of Pain My pain is gradually getting worse Score and Risk Level Oswestry Sc 34 Oswestry Risk Level Severe Disability Neck Disability Index Neck Disability Index Section 1: Pain Intensity The pain is fairly severe at the moment Section 2: Personal Care (washing, I can look after myself dressing, etc.) normally but it causes extra pain Section 3: Lifting I cannot lift or carry anything Section 4: Reading I can't read as much as I want because of moderate pain in my neck Section 5: Headaches I have moderate headaches, which come infrequently Section 6: Concentration I have a fair degree of difficulty in concentrating when I want to Section 7: Work I can hardly do any work at all Section 8: Driving I can't drive my car as long as I want because of moderate pain in my Section 9: Sleeping My sleep is midly disturbed (1 -2 hrs sleepless) Section 10: Recreation I can hardly do any recreation activities because of pain in my neck NDI Score 29 Outpatient Therapy Assessment Impairments Problems/Impairmments Palpation Tenderness,Impaired Range of Motion,Impaired Strength,Impaired Endurance, Impaired Gait Pattern,Impaired Walking,Impaired Standing, Impaired Lifting,Impaired Household Care,Impaired Stepping on Uneven Surface, Impaired Squatting,Impaired Bending,Impaired Recreational Activities,Impaired Work Activities,Subjective C/O Pain Prognosis Rehab Potential Fair Clinical Impression Consistent with Diagnosis Yes Short Term Goals Number of Weeks 2 Decrease Subjective C/O Pain Yes: 5/10 at worst Patient to be Ind w/ HEP Yes Skilled Nursing Goals Number of Weeks 4-6 Decreased Palpation Tenderness Yes: 1/4 Increase Range of Motion Yes: 75% WNL all planes LS/CS Increase Strength Yes: RUE/RLE 5/ Increase Ability to Walk Yes: 30 min without difficulty Increase Ability to Stand Yes: Restore Ability to Lift Objects to Yes: 10 LB's withoud,t Shoulder Level ifficulty Restore Ability to Lift Objects Overhead Yes: Improve Ability For Household Care Yes Improve Ability to Climb Stairs Yes: 1 flight up/down without difficuty Improve Balance Yes: 10 sec sls Improve Oswestry Score Yes: mild disability Improve Neck Disability Index Score Yes: <15 Decrease Subjective C/O Pain Yes: 2/10 at worst Outpatient Therapy Plan of Care Treatment Plan May Include Therapeutic Exercise Including Home Yes Exercise Program Manual Therapy Techniques Yes Neuromuscular Re-education Yes Therapeutic Activities to Return to Yes Previous Functional/Work Level Gait Training Yes ADL/Self Care Education Yes Mechanical Traction Yes Dry Needling Yes Thermal Modalities Yes Electrical Stimulation Yes Ultrasound/Phonophoresis Yes Iontophoresis Yes Orthotics/Bracing/Splinting Yes Vasopneumatic Compression Pump Yes Massage Yes Eval/Re-Eval Yes Aquatic Therapy Yes Frequency Times per week 2-3 Duration Number of Weeks 4-6 Addendums This patient is a candidate for social No or vocational rehab? Patient/Guardian verbally acknowledges Yes understanding of treatment program and consents to further treatment? Patient/Guardian verbally acknowledges Yes understanding of diagnosis, prognosis and goals for treatment? Eval Complexity PT Charges 61914 - Moderate Complexity Shoulder/Elbow Eval Shoulder Objective Measurements Elbow Objective Measurements PHYSICIAN CERTIFICATION: I certify the specified therapy services for [place] Jamaal Herrera are required, authorized, and reviewed every 30 days.
== END 2024-01-29 23:59 | disposition home or self-care (01) ==
LOC: PT 15:00
PROVIDERS: Visit Provider Specialist
DX: M54.6 Pain in thoracic spine (principal); M54.2 Cervicalgia; G89.29 Other chronic pain
CPT/HCPCS: 97014; 97110; 97163; 97530; G0283

== ENCOUNTER 2024-01-31 10:32 | Outpatient (POV) | payer MEDICARE, OTHER, SELFPAY ==
--- OUTSIDE RECORDS SUMMARY | 2024-01-31 10:35 | XMS_ITS | Clinical Summary ---
Author Organization [facility] yste Address [address] [place] [address] Care Team Providers Care Cut Off Saw Set Up Operator Name Role Phone Addy Lara MD Primary Care Provider [phone] Social History Tobacco Use Types Packs/Day Years Used Date Smoking Tobacco: Never Assessed Abuse Screen Answer Date Recorded Unsafe at Home or Work/School Not on file Feels Threatened by Someone? Not on file 11/2022 Does Anyone Keep You from Co ntacting Others or Doint Things Outside the Home? Not on file 12/17/2022 Physical Sign of Abuse Present Not on file 1 Housing Stability Answer Date Recorded Current Living Arrangements Not on file 11/2022 Potentially Unsafe Housing Conditions Not on ksenia e 12/17/2022 Family and Community Support Answer Cam e Recorded Help with Day-to-Day Activities Not on file 12/17/2022 Lonely or Isolated Not on file 12/17/2022 Employment Answer Date Recorded Do you want help finding or keeping work or a michael b? Not on file 12/17/2022 Disabilities Answer Date Recorded Concentrating, Remembering, or Making Decisions Difficulty Not on file 12/17/2022 Doing Errands Independently Difficulty Not on fi le 12/17/2022 Education Answer Date Recorded Help with school or training? Not on file Preferred Language Not on file 12/17/2022 Sex and Gender Information Value Date Recorded Sex Assigned at Not on file Legal Sex Male 10:08 AM EDT Gender Identity Not on file Sexual Orientation Not on file Plan of Treatment Health Maintenance Due Date Last Done Comments COLOGUARD 1945 COLON CANCER SCREENING 5 YEAR SIGMOIDOSCOPY 1945 COLONOSCOPY 1943 [address]AL CANCER SCREENING 1943 CT COLONOGRAPHY 1945 FECAL OCCULT BLOOD TEST 1945 FIT Testing (1 year) 1943 TDAP/TD VACCINES (1 - Tdap) 06/06/1962 ZOSTER VACCINE (1 of 2) 06/06/1993 Pneumococcal Vaccine 65+ (1 of 1 - PCV) 06/06/2008 ANNUAL WELLNESS VISIT 07/17/2017 RSV Vaccine - Adults (1 - 1-dose 75+ series) 9 INFLUENZA VACCINE 10/10/2023 COVID-19 Vaccine (1 - 2023-25 season) 2023 Insurance MEDICARE A & B Member Subscriber Plan / Payer (Ef fective 2005-Present) Name:[employer] [place] Member ID:[id number] Relation to Subscriber:Self Name:[employer] [place] Subscriber ID:[id number] Payer ID:[id number] Group ID:Not on file Type:Not on file Address: [address] Care Teams Cut Off Saw Set Up Operator Relationship Specialty Start Date End Date Addy Lara MD [address] [facility] [address] [place] [id number] PCP - General Internal Medicine 11/19/15
--- OUTSIDE RECORDS SUMMARY | 2024-01-31 10:35 | XMS_ITS | Encounter Summary ---
[facility] Address [address] [place] [id number] Care Team Providers Care Auto Body Technician Name Role Phone Addy Lara MD Primary Care Provider [phone] Encounter Details Date Type Department Care Team (Late st Contact Info) Description 07/17/2017 Telephone [facility] [address] [place] [address] Raad Pineda Social History Tobacco Use Types Packs/Day Years Used Date Smoking Tobacco: Never Assessed Sex and Gender Information Value Date Recorded Sex Assigned at Not on file Legal Sex Male 10:08 AM EDT Gender Identity Not on file Sexual Orientation Not on file documented as of this encounter Miscellaneous Notes * Telephone Encounter - Raad Pineda - 07/17/2017 2:36 PM EDT Provider: Mike Caller: self Time of call: [phone] Phone #: [phone] Surgery: need chart Surgery Date: Last visit: Need chart Next visit: Reason for call: Pt left message wishing to speak with Dr. Mckeon. No further detail left, attempted to call pt backtwice but they could not be reached. documented in this encounter Plan of Treatment Not on file documented as of this encounter Visit Diagnoses Not on filedocumented in this encounter Care Teams Auto Body Technician Relationship Specialty Start Date End Date Addy Lara MD [address] [facility] [address] [place] [address] PCP - General Internal Medicine 11/19/15 documented as of this encounter
--- OUTSIDE RECORDS SUMMARY | 2024-01-31 10:35 | XMS_ITS | Encounter Summary ---
[facility] Address [address] [place] [address] Care Team Providers Care Technician Telecommunication Systems Name Role Phone Addy Lara MD Primary Care Provider [phone] Reason for Referral * Diagnostic Imaging (Routine) - Closed Specialty Diagnoses / Procedures Referred By Jason bolden Referred To Contact Radiology Diagnoses Osteitis deformans of vertebra Cervicalgia Procedures MRI neck soft tissue only w wo contrast Addy Lara MD [address] [place] [address] [place] [address] Phone: tel: fax: Referral ID Status Reason Start Date Expiration Date Visits Re quested Visits Authorized [id number] Closed 11/15/2015 05/13/2016 1 1 Reason for Visit * Diagnostic Imaging (Routine) - Closed Specialty Diagnoses / Procedures Referred By Jason bolden Referred To Contact Radiology Diagnoses Osteitis deformans of vertebra Cervicalgia Procedures MRI neck soft tissue only w wo contrast Addy Lara MD [address] [place] [address] [place] [address] Phone: tel: fax: Referral ID Status Reason Start Date Expiration Date Visits Re quested Visits Authorized [id number] Closed 11/15/2015 05/13/2016 1 1 Encounter Details Date Type Department Care Team (Latest Contact Info) Description 11/19/2015 9:54 AM EDT - 11/19/2015 11:59 PM EDT Hospital Encounter [facility] [address] [place] [id number] Addy Lara MD [address] [place] [address] [address] [place] [id number] Osteitis deformans of vertebra; Cervicalgia Discharge Disposition: Home or Self Care Social History Tobacco Use Types Packs/Day Years Used Date Smoking Tobacco: Never Assessed Sex and Gender Information Value Date Recorded Sex Assigned at Not on file Legal Sex Male 10:08 AM EDT Gender Identity Not on file Sexual Orientation Not on file documented as of this encounter Plan of Treatment Not on file documented as of this encounter Procedures Procedure Name Priority Date/Time Associated Diagnosis Comments MRI NECK SOFT TISSUE ONLY W WO CONTRAST Routine 11/19/2015 11:01 AM EDT Osteitis deformans of vertebra Cervicalgia documented in this encounter Results * MRI neck soft tissue only w wo contrast (11/19/2015 11:01 AM EDT) Anatomical Region Laterality Modality Head, Neck N/A Magnetic Resonan ce 11/19/2015 3:01 PM EDT Impressions 11/20/2015 12:23 PM EDT 1. Exaggerated lordosis of the cervical spine. 2. Woven bone and/or abnormal bone at C5, C6, and C7 consistent with given history of Paget's disease. 3. Multilevel central canal stenosis. 4. No significant change since 09/21/2011. ?? DICTATED: ? 11/18/2105 EDITED: ?11/19/2015 This report was finalized on 11/20/2015 12:[address] Micha Hoffmann MD. 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 Severe neck pain, upper thoracic pain and tightness in right shoulder. Difficulty sleeping. TECHNIQUE: Multiplanar multiweighted MRI of the soft tissues of the neck before and after intravenous contrast. COMPARISON: 09/21/2011. FINDINGS: There is severe degenerative change of the cervical spine at the C5, C6, and C7 levels. There is some abnormality of the bony cortex and matrix consistent with given history of Paget's disease and/or previous surgery. There is no significant spondylolisthesis. There is exaggerated lordosis at this level which has not significantly changed since 09/21/2011. There is facet hypertrophy at C2-C3, C3-C4, and C4-C5 causing some central canal stenosis. Small posterior disc bulges are also present at these levels. T2 signal of the cord is normal. After contrast, there are no abnormal areas of parenchymal enhancement. There is some enhancement in the bone at C5, C6, and C7 which is likely related to Paget's disease and/or granulation tissue; again not significantly ??changed since the previous exam. AXIAL IMAGES: The axial images confirm the above findings. C3-C4: A small central disc protrusion is present. Mild bilateral facet hypertrophy is present. There is moderate right neuroforaminal narrowing. There is no significant central canal stenosis. C4-C5: A moderate symmetric disc osteophyte complex is present. There is severe bilateral facet hypertrophy. There is severe bilateral neuroforaminal narrowing. There is moderate central canal stenosis with the AP canal diameter measuring 7.4 mm. 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 Severe neck pain, upper thoracic pain and tightness in right shoulder. Difficulty sleeping. TECHNIQUE: Multiplanar multiweighted MRI of the soft tissues of the neck before and after intravenous contrast. COMPARISON: 09/21/2011. FINDINGS: There is severe degenerative change of the cervical spine at the C5, C6, and C7 levels. There is some abnormality of the bony cortex and matrix consistent with given history of Paget's disease and/or previous surgery. There is no significant spondylolisthesis. There is exaggerated lordosis at this level which has not significantly changed since 09/21/2011. There is facet hypertrophy at C2-C3, C3-C4, and C4-C5 causing some central canal stenosis. Small posterior disc bulges are also present at these levels. T2 signal of the cord is normal. After contrast, there are no abnormal areas of parenchymal enhancement. There is some enhancement in the bone at C5, C6, and C7 which is likely related to Paget's disease and/or granulation tissue; again not significantly changed since the previous exam. AXIAL IMAGES: The axial images confirm the above findings. C3-C4: A small central disc protrusion is present. Mild bilateral facet hypertrophy is present. There is moderate right neuroforaminal narrowing. There is no significant central canal stenosis. C4-C5: A moderate symmetric disc osteophyte complex is present. There is severe bilateral facet hypertrophy. There is severe bilateral neuroforaminal narrowing. There is moderate central canal stenosis with the AP canal diameter measuring 7.4 mm. IMPRESSION: 1. Exaggerated lordosis of the cervical spine. 2. Woven bone and/or abnormal bone at C5, C6, and C7 consistent with given history of Paget's disease. 3. Multilevel central canal stenosis. 4. No significant change since 09/21/2011. DICTATED: 11/18/2105 EDITED: 11/19/2015 This report was finalized on 11/20/2015 12:[address] Micha Hoffmann MD. Addy Lara MD IMG MRI ORDERABLES Final Resul t documented in this encounter Visit Diagnoses Diagnosis Osteitis deformans of vertebra Cervicalgia documented in this encounter Administered Medications Inactive Administered Medications - up to 3 most recent administrations Medication Order MAR Action Action Date Dose Rate Site gadobenate dimeglumine (MULTIHANCE) injection 15 mL 15 mL, Intravenous, Once in Imaging, On 11/19/15 at 1145, For 1 dose, Vesicant; admin as rapid bolus; flush with 5 mL NS after admin or 20 mL for renal or aortoiliofemoral vasculature Given 11/19/2015 10:57 AM EDT 15 mL Left Arm documented in this encounter Care Teams Technician Telecommunication Systems Relationship Specialty Start Date End Date Addy Lara MD [address] [place] [facility] [address] [place] [id number] PCP - General Internal Medicine 11/19/15 documented as of this encounter
[2024-01-31 10:58] VITALS: BP 116/73; PULSE 94; RESP 18; O2SAT 95; BMI 25.1
--- NOTE | 2024-01-31 11:01 | A.OFFVIS_ITS ---
[facility] Disclaimer: The information contained in this section may have been updated after the patient was seen, as this information can be updated by other users. Medical History Fungal otitis externa Tinnitus, left ear Decreased hearing of left ear High frequency hearing loss Moderate severe high frequency SNHL>[id number], worse, left per audiometric Foot drop, right Acute left otitis media Hearing loss Impacted cerumen Fatigue Dyspnea Overactive bladder Depression Arthritis Rosacea History of COVID-19 History of gastroesophageal reflux (GERD) Allergies History of cataract Hypertension Atrial fibrillation Skin cancer Bloating Gastroesophageal reflux disease WILIAM (obstructive sleep apnea) CAD (coronary artery disease) OCT 2020-Mild nonflow limiting coronary disease with preserved ejection fraction Mildly elevated LVEDP consistent with diastolic dysfunction Abnormal electrocardiography Abnormal cardiovascular stress test Atypical angina Surgical History History of tonsillectomy and adenoidectomy History of cataract surgery History of bladder surgery H/O hemorrhoidectomy Family History Other No significant family history Social History Smoking Status: Former smoker tobacco type: cigarettes packs per day: 1 second hand exposure: No alcohol intake: current alcohol intake frequency: a few times a week counseling provided: none substance use type: denies use current occupational status: retired household members: other housing: house current occupation: retired current occupational exposures/hazards: No caffeine: Yes PM Subjective & Objective Subjective Subjective:: Patient is a pleasant 78-year-old male who presents today for follow-up of thoracic MRI and worsening mid back pain. Today he rates his pain a 7 out of 10. Patient denies any new trauma or injury. He does state that he still has been experiencing worsening pain in his mid back that does radiate down with numbness and tingling. Patient has been experiencing this for at least 6 months. Patient describes it as a constant achy, throbbing sensation that does interfere with his ability to perform activities of daily living such as cooking and cleaning. Patient has tried oral medication along with heat and ice and topicals with minimal improvement. Patient has also done at home exercising and stretching for longer than 12 weeks with no additional changes. Patient would like to try some injection therapy for this pain. He is currently managed from our office with tizanidine 4 mg at bedtime, methocarbamol 500 mg twice a day and tramadol 50 mg 3 times a day. He denies any side effects from these medications. His Reji has been reviewed and is appropriate. Review of Systems: General: No recent weight changes, no fever, no sleep disturbances Respiratory: No cough, no shortness of air, no recurring pulmonary infections Cardiovascular/peripheral vascular: No chest pain, no palpitations, no edema, no shortness of breath Gastrointestinal: No new onset incontinence, normal bowel movements reported Genitourinary: No new onset incontinence Musculoskeletal: Mid back pain, rib pain low back pain Psychiatric: [Normal mood/affect] Neurological: [Denies weakness in extremities], [denies balance issues] Pain at rest (0-10 scale): 7 Objective Objective:: Physical Exam: General: Alert and oriented x3, no acute distress, pleasant and cooperative Lungs: Respirations even and unlabored, symmetrical chest expansion Eyes: PERRL Musculoskeletal: Flexion and extension of thoracic [spine] somewhat guarded secondary to pain, [antalgic gait noted] point tenderness in mid thoracic with palpation Neurological: Speech clear, no gross sensory deficit Has patient had previous pain injection?: No Conservative treatment options previously tried: Home exercise plan Length of treatment: Longer than 12 weeks Meds Home Medications and Allergies Home Medications ?Medication ?Instructions ?Recorded ?Confirmed ?Type apixaban 5 mg tablet (Eliquis) 5 mg PO BID ATRIAL FIB 11/07/22 01/13/24 History valsartan 80 mg tablet 80 mg PO DAILY . #90 tabs 01/09/23 01/13/24 Rx amlodipine 10 mg tablet 10 mg PO DAILY 02/26/23 01/13/24 History thiamine HCl (vitamin B1) 250 mg 250 mg PO DAILY Neuropathy #90 tabs 10/01/23 01/13/24 Rx tablet citalopram 20 mg tablet See Rx Instructions .Route 10/11/23 01/13/24 Rx .COMPLEX #90 tabs methocarbamol 500 mg tablet 500 mg PO BID PRN Pain 10/29/23 01/13/24 History tizanidine 4 mg tablet 4 mg PO .prn MOOD 30 days #30 tabs 10/31/23 01/13/24 Rx azelastine 137 mcg (0.1 %) nasal 1 spray intranasal BID PRN 01/06/24 01/13/24 History spray lidocaine 4 % topical patch 1 patch topical DAILY PRN 01/06/24 01/13/24 History tramadol 50 mg tablet 50 mg PO TID PRN 01/06/24 01/13/24 History alendronate 35 mg tablet 35 mg PO ONCE #88 tabs 01/10/24 01/13/24 Rx oxybutynin chloride 10 mg 10 mg PO DAILY URINARY #90 tabs 01/10/24 01/13/24 Rx tablet,extended release 24 hr prednisone 20 mg tablet 20 mg PO DAILY 7 days #7 tabs 01/13/24 01/13/24 Rx New Prescriptions to Start Prescriptions: Allergies Allergy/AdvReac Type Severity Reaction Status Date / Time No Known Allergies Allergy Verified 01/13/24 13:02 Assessment and Plan *Assessment and plan (1) Degenerative disc disease, thoracic: Status: Acute Category: Medical Code(s): M51.34 - Other intervertebral disc degeneration, thoracic region (2) Thoracic radiculopathy: Status: Acute Category: Medical Code(s): M54.14 - Radiculopathy, thoracic region Plan I did review over the patient's MRI findings. Patient still is experiencing chronic numbness and tingling in his mid back that radiates down towards his ribs and low back. Patient did have limited range of motion of his thoracic spine with point tenderness at his mid thoracic area. I did review over with the patient due to this pain being present for longer than 6 months that he may benefit from a thoracic epidural steroid injection. Risk and benefits were discussed with the patient and he would like to proceed forward with this plan of care. Patient has tried and failed conservative therapy including continued at home stretching exercise for longer than 12 weeks. Patient will be scheduled for a thoracic epidural steroid injection T8-T9 under fluoroscopy. Patient is currently on Eliquis written by Dr. Hampton's office. We will call and confirm that he can stop this medication prior to this injection. I will also check and make sure that he does have refills on his muscle relaxers and tramadol. Patient has been instructed to contact the clinic with any concerns before the next appointment. Dr. Meza has reviewed this note and agrees with this plan of care. This note was dictated using voice recognition software and make contain errors or omissions. All injections are used with Lidocaine or Bupivacaine and Depo Medrol.
== END 2024-01-31 23:59 | disposition home or self-care (01) ==
PROVIDERS: PCP Internal Medicine; Visit Provider Nurse Practitioner Family
DX: M51.14 Intervertebral disc disorders with radiculopathy, thoracic region (principal); Z87.891 Personal history of nicotine dependence; Z73.89 Other problems related to life management difficulty; Z79.01 Long term (current) use of anticoagulants
CPT/HCPCS: 99212; G0463

== ENCOUNTER 2024-02-13 15:29 | Outpatient (CLI) | payer MEDICARE, OTHER, SELFPAY ==
--- OUTSIDE RECORDS SUMMARY | 2024-02-13 15:32 | XMS_ITS | Clinical Summary ---
Author Organization [facility] yste Address [address] [place] [address] Care Team Providers Care Telegraph Office Telephone Clerk Name Role Phone Addy Lara MD Primary Care Provider [phone] Social History Tobacco Use Types Packs/Day Years [...] - 1-dose 75+ series) 9 INFLUENZA VACCINE 09/09/2023 COVID-19 Vaccine (1 - 2023-25 season) 2023 Insurance MEDICARE A & B Member Subscriber Plan / Payer (Ef fective 2005-Present) Name:[employer] [place] Member ID:[id number] Relation to Subscriber:Self Name:[employer] [place] Subscriber ID:[id number] Payer ID:[id number] Group ID:Not on file Type:Not on file Address: [address] Care Teams Telegraph Office Telephone Clerk Relationship Specialty Start Date End Date Addy Lara MD [address] [facility] [address] [place] [id number] PCP - General Internal Medicine 11/19/15
--- OUTSIDE RECORDS SUMMARY | 2024-02-13 15:32 | XMS_ITS | Encounter Summary ---
[facility] Address [address] [place] [id number] Care Team Providers Care Grain Receiver Name Role Phone Addy Lara MD Primary Care Provider [phone] Encounter Details Date Type Department Care Team (Late st Contact Info) Description 07/17/2017 Telephone [facility]UR[facility] [address] [place] [address] Raad Pineda Social History Tobacco [...] Provider: Mike Caller: self Time of call: [phone] Phone #: [phone] Surgery: need chart Surgery Date: Last visit: Need chart Next visit: Reason for call: Pt left message wishing to speak with Dr. Mckeon. No further detail left, attempted to call pt backtwice but they could not be reached. documented in this encounter Plan of Treatment Not on file documented as of this encounter Visit Diagnoses Not on filedocumented in this encounter Care Teams Grain Receiver Relationship Specialty Start Date End Date Addy Lara MD [address] [facility] [address] [place] [address] PCP - General Internal Medicine 11/19/15 documented as of this encounter
--- OUTSIDE RECORDS SUMMARY | 2024-02-13 15:32 | XMS_ITS | Encounter Summary ---
[facility] Address [address] [place] [address] Care Team Providers Care Director Of Recruiting Name Role Phone Addy Lara MD Primary Care Provider [phone] Reason for Referral * Diagnostic Imaging (Routine) - Closed Specialty Diagnoses / Procedures Referred By Jason bolden Referred To Contact Radiology Diagnoses Osteitis deformans of vertebra Cervicalgia Procedures MRI neck soft tissue only w wo contrast Addy Lara MD [address] [place] [address] [place] [address] Phone: tel: fax: Referral ID Status Reason Start Date Expiration Date Visits Re quested Visits Authorized [id number] Closed 11/15/2015 05/13/2016 1 1 Reason for Visit * Diagnostic Imaging (Routine) - Closed Specialty Diagnoses / Procedures Referred By Jason bolden Referred To Contact Radiology Diagnoses Osteitis deformans of vertebra Cervicalgia Procedures MRI neck soft tissue only w wo contrast Addy Lara MD [address] [place] [address] [place] [address] Phone: tel: fax: Referral ID Status Reason Start Date Expiration Date Visits Re quested Visits Authorized [id number] Closed 11/15/2015 05/13/2016 1 1 Encounter Details Date Type Department Care Team (Latest Contact Info) Description 11/19/2015 9:54 AM EDT - 11/19/2015 11:59 PM EDT Hospital Encounter [facility] [address] [place] [id number] Addy Lara MD [address] [place] [address] [address] [place] [id number] Osteitis deformans of vertebra; Cervicalgia Discharge Disposition: [...] Arm documented in this encounter Care Teams Director Of Recruiting Relationship Specialty Start Date End Date Addy Lara MD [address] [place] [facility] [address] [place] [id number] PCP - General Internal Medicine 11/19/15 documented as of this encounter
[2024-02-13 15:51] LABS: Basophils # 0.1 K/mm3 (0-0.2); Basophils % 1.1 % (0.1-2.0); Eosinophils # 0.3 K/mm3 (0.0-0.4); Eosinophils % 3.1 % (0.1-12.0); Hematocrit 47.4 % (42.0-52.0); Lymphocytes # 2.2 K/mm3 (0.7-4.5); Lymphocytes % 26.1 % (10-50); Mean Corpuscular HGB Conc 33.7 g/dL (31.8-35.4); Mean Corpuscular Hemoglobin 32.7 pg (27.0-31.2); Mean Platelet Volume 9.4 fl (7.4-10.4); Monocytes # 0.8 K/mm3 (0.1-1.0); Neutrophils # 5.1 K/mm3 (1.8-7.8); Neutrophils % 60.7 % (37.0-80.0); Platelet Count 154 K/mm3 (142-424); Red Blood Count 4.89 M/mm3 (4.60-6.20); Red Cell Distribution Width 13.7 % (11.5-17.5); White Blood Count 8.5 K/mm3 (4.8-10.8)
[2024-02-13 16:24] LABS: Alanine Aminotransferase 23 U/L (12-78); Albumin Level 4.4 g/dl (3.5-5.0); Alkaline Phosphatase 37 U/L (38-126); Aspartate Amino Transferase 33 U/L (17-59); Bilirubin,Direct 0.5 mg/dl (0.0-0.4); Bilirubin,Indirect 0.2 mg/dL (0.0-0.9); Bilirubin,Total 0.7 mg/dl (0.2-1.3); Bilirubin,Unconjugated 0.2 mg/dL (0.0-1.1); Blood Urea Nitrogen 30 mg/dl (9-20); Calcium 9.5 mg/dl (8.4-10.2); Carbon Dioxide 28 mmol/L (22.0-30.0); Chloride 110 mmol/L (98-107); Chol/HDL Ratio 4.6 (1-3.5); Cholesterol 213 mg/dl (140-200); Estimated Glomerular Filt Rate 53 ml/min (>60); GFR (African American) 64 ML/MIN (>60); Glucose 93 mg/dl (74-100); HDL Cholesterol 46 mg/dl (40-60); Sodium 142 mmol/L (136-145); Total Protein,Serum 6.7 g/dl (6.3-8.2); Triglycerides 237 mg/dl (30-150); VLDL Cholesterol 47 mg/dL (0-40)
[2024-02-13 16:34] LABS: Direct LDL Cholesterol 132.22 mg/dL (100-129)
[2024-02-13 16:54] LABS: Thyroid Stimulating Hormone 2.97 uIU/mL (0.465-4.68)
== END 2024-02-13 23:59 | disposition home or self-care (01) ==
LOC: LAB 15:31
PROVIDERS: Physician Assistant; PCP Internal Medicine; Visit Provider Radiology Diagnostic Radiology
DX: R53.83 Other fatigue (principal); I10 Essential (primary) hypertension; E78.2 Mixed hyperlipidemia; I25.10 Atherosclerotic heart disease of native coronary artery without angina pectoris
CPT/HCPCS: 36415; 80048; 80061; 80076; 84439; 84443; 85025

== ENCOUNTER 2024-02-25 09:56 | Day surgery (SDC) | payer MEDICARE, OTHER, SELFPAY ==
[2024-02-25 10:32] VITALS: BP 136/83; PULSE 94; RESP 16; TEMP 36.6; O2SAT 98; BMI 25.7
[2024-02-25 10:35] VITALS: BP 136/83; PULSE 91; RESP 18; O2SAT 94
[2024-02-25] MEDS: methylPREDNISolone ACETATE 80MG/ML VIAL 80 MG (10:35)
[2024-02-25 10:42] VITALS: BP 136/83; PULSE 91; RESP 18; O2SAT 94
[2024-02-25 10:47] VITALS: BP 138/92; PULSE 90; RESP 16; O2SAT 98
--- NOTE | 2024-02-25 11:48 | P.PCN_ITS ---
Procedure Date: 02/25/24 Time: 10:30 Anesthesiologist:: Roman Krishnamurthy CRNA Complications:: None Pre-procedure Diagnosis:: Degenerative disc thoracic spine. Thoracic radiculopathy. Bone spurs T8-T9 noted on CT scan. Post-procedure Diagnosis:: Same. Indications for Procedure:: Patient is a pleasant 78-year-old male who comes our clinic today for a T8-9 thoracic epidural steroid injection. He describes thoracic back pain as constant, dull, aching. He reports bilateral rib radiculopathy. He rates his pain 6/10. He reports having difficulty with sitting. Procedure Details:: Procedure:Thoracic epidural steroid injection under fluoroscopy Informed consent was obtained and the risks and benefits of the procedure were explained to the patient. The patient was taken to the procedure room and noninvasive monitors placed, including noninvasive blood pressure cuff and pulse oximeter. The back was viewed using C-Arm fluoroscopy and prepped using Betadine as a cleansing solution and the T8-9 interspace was palpated. Skin and subcutane ous tissues were anesthetized using lidocaine 1.5% and a 25-gauge needle. After this, an 18-gauge Touhy epidural needle was placed into the T8-9 interspace and advanced using fluoroscopic guidance and loss of resistance to air until the epidural space was encountered. After confirmation of needle placement in the epidural space, with dye, a solution containing lidocaine 1.5%, 4 mL and Depo- Medrol 80 mg were incrementally injected into the thoracic epidural space. The patient tolerated the procedure well with no complications. The patient was observed in the Pain Clinic and then discharged home neurologically intact. Plan and Disposition:: Patient was discharged without incident.
== END 2024-02-25 10:47 | disposition home or self-care (01) ==
LOC: SC.PAINP 09:57
PROVIDERS: PCP Internal Medicine; Visit Provider Nurse Anesthetist, Certified Registered
DX: M51.14 Intervertebral disc disorders with radiculopathy, thoracic region (principal); M25.78 Osteophyte, vertebrae
CPT/HCPCS: 62321; J1010

== ENCOUNTER 2024-04-01 14:03 | Outpatient (POV) | payer MEDICARE, OTHER, SELFPAY ==
[2024-04-01 14:44] VITALS: BP 140/70; PULSE 92; RESP 14; O2SAT 96; BMI 25.7
--- NOTE | 2024-04-01 15:48 | EXP.PAIN.SOA ---
[facility] Disclaimer: The information contained in this section may have been updated after the patient was seen, as this information can be updated by other users. Medical History (Updated 03/24/24 @ 15:34 by Ashley Mistry APRN) Acute right otitis media Bilateral hearing loss due to cerumen impaction Fungal otitis externa Tinnitus, left ear Decreased hearing of left ear High frequency hearing loss Foot drop, right Acute left otitis media Hearing loss Impacted cerumen Fatigue Dyspnea Overactive bladder Depression Arthritis Rosacea History of COVID-19 History of gastroesophageal reflux (GERD) Allergies History of cataract Hypertension Atrial fibrillation Skin cancer Bloating Gastroesophageal reflux disease WILIAM (obstructive sleep apnea) CAD (coronary artery disease) Abnormal electrocardiography Abnormal cardiovascular stress test Atypical angina Surgical History History of tonsillectomy and adenoidectomy History of cataract surgery History of bladder surgery H/O hemorrhoidectomy Family History Other No significant family history Social History Smoking Status: Former smoker tobacco type: cigarettes packs per day: 1 second hand exposure: No alcohol intake: current alcohol intake frequency: a few times a week counseling provided: none substance use type: denies use current occupational status: other Travel in the last 8 weeks: None household members: other housing: house current occupation: retired current occupational exposures/hazards: No caffeine: Yes PM Subjective & Objective Subjective Subjective:: Patient is a pleasant 78-year-old male who presents today for patient is a pleasant of thoracic epidural steroid injection T8-T9 on 02/25/2024. He does state he had at least 50% improvement and definitely states that it is not as severe and continuous as it had been. He is complaining more of neck pain that radiates down to his right shoulder with some numbness and tingling. Patient has had longstanding chronic neck issues in the past that we have treated with injection therapy. Patient does state that the pain is becoming more more bothersome and is interfering with his ability perform activities of daily living such as cooking and cleaning. He is interested in additional injection therapy. Patient is currently managed from our office with tizanidine 4 mg at bedtime, methocarbamol 500 mg twice a day and tramadol 50 mg 3 times a day. He denies any side effects from this medication. His Reji has been reviewed and is appropriate. Review of Systems: General: No recent weight changes, no fever, no sleep disturbances Respiratory: No cough, no shortness of air, no recurring pulmonary infections Cardiovascular/peripheral vascular: No chest pain, no palpitations, no edema, no shortness of breath Gastrointestinal: No new onset incontinence, normal bowel movements reported Genitourinary: No new onset incontinence Musculoskeletal: Neck pain, right shoulder numbness tingling Psychiatric: [Normal mood/affect] Neurological: [Denies weakness in extremities], [denies balance issues] Pain at rest (0-10 scale): 8 Objective Objective:: Physical Exam: General: Alert and oriented x3, no acute distress, pleasant and cooperative Lungs: Respirations even and unlabored, symmetrical chest expansion Eyes: PERRL Musculoskeletal: Flexion and extension of cervical [spine] somewhat guarded secondary to pain, [antalgic gait noted] positive Spurling's test Neurological: Speech clear, no gross sensory deficit Has patient had previous pain injection?: Yes Percent improvement in pain since last injection: 50% Conservative treatment options previously tried: Home exercise plan Length of treatment: Longer than 12 weeks Meds Home Medications and Allergies Home Medications ?Medication ?Instructions ?Recorded ?Confirmed ?Type apixaban 5 mg tablet (Eliquis) 5 mg PO BID ATRIAL FIB 11/07/22 04/01/24 History valsartan 80 mg tablet 80 mg PO DAILY . #90 tabs 01/09/23 04/01/24 Rx thiamine HCl (vitamin B1) 250 mg 250 mg PO DAILY Neuropathy #90 tabs 10/01/23 04/01/24 Rx tablet citalopram 20 mg tablet See Rx Instructions .Route 10/11/23 04/01/24 Rx .COMPLEX #90 tabs azelastine 137 mcg (0.1 %) nasal 1 spray intranasal BID PRN 01/06/24 04/01/24 History spray Breathing Problems lidocaine 4 % topical patch 1 patch topical DAILY PRN Pain 01/06/24 04/01/24 History alendronate 35 mg tablet 35 mg PO ONCE #88 tabs 01/10/24 04/01/24 Rx oxybutynin chloride 10 mg 10 mg PO DAILY URINARY #90 tabs 01/10/24 04/01/24 Rx tablet,extended release 24 hr methocarbamol 500 mg tablet 500 mg PO BID PRN Pain #60 tabs 01/31/24 04/01/24 Rx tizanidine 4 mg tablet 4 mg PO .prn MOOD 30 days #30 tabs 01/31/24 04/01/24 Rx tramadol 50 mg tablet 50 mg PO TID PRN pain #90 tabs 01/31/24 04/01/24 Rx ezetimibe 10 mg tablet (Zetia) 10 mg PO DAILY #90 tabs 02/21/24 04/01/24 Rx amlodipine 10 mg tablet 10 mg PO DAILY #90 tabs 02/28/24 04/01/24 Rx azithromycin 250 mg tablet See Rx Instructions PO .COMPLEX #6 03/24/24 04/01/24 Rx tabs New Prescriptions to Start Prescriptions: Allergies Allergy/AdvReac Type Severity Reaction Status Date / Time Akcgulr-HMO-BoF Reductase AdvReac Severe Verified 03/24/24 15:06 Inhibitor Assessment and Plan *Assessment and plan (1) Degenerative disc disease, cervical: Status: Acute Category: Medical Code(s): M50.30 - Other cervical disc degeneration, unspecified cervical region (2) Cervical radiculopathy: Status: Acute Category: Medical Code(s): M54.12 - Radiculopathy, cervical region Plan Patient is experiencing worsening pain in his neck with radiating numbness and tingling into his right shoulder. Patient did have limited range of motion of his cervical spine with a positive Spurling's test. Patient has had cervical epidurals in the past however has not had any since October with 50% improvement. I did discuss with the patient that he may benefit from repeat cervical epidural steroid injection. Risk and benefits were discussed with the patient and he would like to proceed forward with this plan of care. Patient has continued conservative treatment including oral medication, heat and ice, topicals, at home stretching exercise for longer than 12 weeks between injections. Patient did have improved function with decreased pain from his prior injections. Patient will be submitted for a SHERLEY C5-C6 under fluoroscopy. Patient does state that he does not need any refills at this time. Patient has been instructed to contact the clinic with any concerns before the next appointment. Dr. Meza has reviewed this note and agrees with this plan of care. This note was dictated using voice recognition software and make contain errors or omissions. All injections are used with Lidocaine, Bupivacaine and Depo Medrol. Occasionally urine drug screen is needed to verify patient's compliance with our office pain contract. This is ordered based off specific treatments related to chronic pain with the potential to abuse certain medications.
== END 2024-04-01 23:59 | disposition home or self-care (01) ==
LOC: SC.PAIN 14:05
PROVIDERS: PCP Internal Medicine; Visit Provider Nurse Practitioner Family
DX: M50.10 Cervical disc disorder with radiculopathy, unspecified cervical region (principal); Z87.891 Personal history of nicotine dependence; Z73.89 Other problems related to life management difficulty; Z79.01 Long term (current) use of anticoagulants
CPT/HCPCS: 99212; G0463

== ENCOUNTER 2024-04-17 16:06 | Outpatient (CLI) | payer MEDICARE, OTHER, SELFPAY ==
--- NOTE | 2024-04-17 16:07 | MR_ITS ---
PROCEDURE INFORMATION: Exam: MR Lumbar Spine Without Contrast Exam date and time: 04/17/2024 4:11 PM Age: 78 years old Clinical indication: Low back pain; Additional info: Lumbar radiculopathy, right leg weakness TECHNIQUE: Imaging protocol: Magnetic resonance imaging of the lumbar spine without contrast. COMPARISON: MR LUMBAR SPINE WO CON 01/20/2024 1:04 PM FINDINGS: Bones/joints: The lowest full sized lumbar intervertebral disc is labeled as L5-S1 for the purposes of this dictation and to remain consistent with the previous study. There is a small S1-2 disc. The lumbar vertebral bodies are stable in height, without abnormal subluxation. Mild convexity of the lumbar spine to the left. Spinal cord: The distal end of the conus medullaris ends at L2, which is at the low end of normal. Multilevel findings: Degenerative changes are noted diffusely within the lumbar spine, with a decrease in the T2 signal intensity of the discs, as well as disc bulge/osteophyte complexes. L1-L2: A small right paracentral disc protrusion is visualized causing flattening of the right ventral thecal sac without significant spinal canal stenosis. There is no significant neural foraminal narrowing bilaterally. Focal concavity/Schmorl's nodes are identified of the endplates at this level. L2-L3: Mild disc bulging is visualized. There is no significant spinal canal stenosis. Narrowing of the right lateral recess is seen. [id number] right neural foraminal narrowing visualized. There is no significant narrowing of the left neural foramina. A small concavity/Schmorl's node is visualized at the superior L3 endplate. L3-L4: Mild disc bulging is visualized, without significant spinal canal stenosis. There is narrowing of the right lateral recess. [id number] right neural foraminal narrowing is seen. There is no significant narrowing of the left neural foramen. A small concavity/Schmorl's node is visualized at the superior L4 endplate. L4-L5: Hypertrophy of the ligamentum flavum is seen. A broad-based disc bulge is visualized, with minimal progressive narrowing of the thecal sac. There is narrowing of both lateral recesses. Moderate bilateral neural foraminal narrowing is visualized. L5-S1: A decrease in disc height is seen posteriorly. Bilateral facet arthropathy. There is a broad-based disc bulge causing flattening of ventral thecal sac, without significant spinal canal stenosis. Moderate bilateral neural foraminal narrowing is visualized. Soft tissues: Minimal edema is seen within the subcutaneous tissues posteriorly. Kidneys and ureters: Nonspecific perinephric stranding is again visualized. A few T2 hyperintense left renal cysts are identified, the largest visualized cyst measuring 1.3 cm in diameter. IMPRESSION: 1. Degenerative changes are noted diffusely within the lumbar spine, as described above. 2. Minimal progressive narrowing of the thecal sac is visualized at L4-L5. A small right paracentral disc protrusion is visualized at L1-L2 causing flattening of the right ventral thecal sac without significant spinal canal stenosis. 3. Neural foraminal narrowing from L2-L3 through L5-S1. 4. Additional findings described above.
== END 2024-04-17 23:59 | disposition home or self-care (01) ==
LOC: RAD 16:07
PROVIDERS: PCP Internal Medicine; Visit Provider Specialist
DX: M47.26 Other spondylosis with radiculopathy, lumbar region (principal); M51.369 Other intervertebral disc degeneration, lumbar region without mention of lumbar back pain or lower extremity pain
CPT/HCPCS: 72148

== ENCOUNTER 2024-05-01 14:46 | Outpatient (POV) | payer MEDICARE, OTHER, SELFPAY ==
[2024-05-01 15:02] VITALS: BP 136/77; PULSE 91; RESP 16; O2SAT 97; BMI 25.7
--- NOTE | 2024-05-01 15:19 | A.OFFVIS_ITS ---
[facility] Disclaimer: The information contained in this section may have been updated after the patient was seen, as this information can be updated by other users. Medical History Collapse of left external ear canal Impacted cerumen of left ear Right leg weakness Intolerance to BiPAP/CPAP Acute right otitis media Bilateral hearing loss due to cerumen impaction Fungal otitis externa Tinnitus, left ear Decreased hearing of left ear High frequency hearing loss Foot drop, right Acute left otitis media Hearing loss Impacted cerumen Fatigue Dyspnea Overactive bladder Depression Arthritis Rosacea History of COVID-19 History of gastroesophageal reflux (GERD) Allergies History of cataract Hypertension Atrial fibrillation Skin cancer Bloating Gastroesophageal reflux disease WILIAM (obstructive sleep apnea) CAD (coronary artery disease) Abnormal electrocardiography Abnormal cardiovascular stress test Atypical angina Surgical History History of tonsillectomy and adenoidectomy History of cataract surgery History of bladder surgery H/O hemorrhoidectomy Family History Other No significant family history Social History Smoking Status: Former smoker tobacco type: cigarettes packs per day: 1 second hand exposure: No alcohol intake: current alcohol intake frequency: a few times a week counseling provided: none substance use type: denies use current occupational status: other Travel in the last 8 weeks: None household members: other housing: house current occupation: retired current occupational exposures/hazards: No caffeine: Yes Have you lived/traveled outside [place] in past 30 days?: No Contact w/someone who lives/traveled outside [place] past 30 days?: No Exposure to someone with infectious disease in past 14 days?: No Do you have a fever (greater than 100.4 F or 38 C)?: No Have you tested positive for COVID-19: No Exposed to someone with COVID-19 in past 14 days?: No Do you have a sore throat?: No Do you have a cough?: No Do you have any weakness?: No Do you have any diarrhea?: No Are you experiencing any unusual bleeding?: No Do you have any muscle aches/pain?: No Do you have any abdominal pain?: No Are you experiencing loss of taste or smell?: No PM Subjective & Objective Subjective Subjective:: Patient is a pleasant 78-year-old male who presents today with additional questions regarding his updated injection on the . Patient rates his pain today as 7 out of 10. He denies any new trauma or injury. He does state that he is still having quite a bit of stiffness and pain in and around his neck that does go down more into his mid back and is having chronic headaches. He does state that he has limited range of motion in his neck. Patient is scheduled for cervical epidural coming up next week. Patient is on blood thinners and does state that he has not taken that medication today that he was told to stop 4 days. He is prescribed tizanidine 4 mg at bedtime, methocarbamol 500 mg twice a day and tramadol 50 mg 3 times a day from our office. He denies any side effects from this medication. His Reji has been reviewed and is appropriate. Review of Systems: General: No recent weight changes, no fever, no sleep disturbances Respiratory: No cough, no shortness of air, no recurring pulmonary infections Cardiovascular/peripheral vascular: No chest pain, no palpitations, no edema, no shortness of breath Gastrointestinal: No new onset incontinence, normal bowel movements reported Genitourinary: No new onset incontinence Musculoskeletal: Neck pain, headache Psychiatric: [Normal mood/affect] Neurological: [Denies weakness in extremities], [denies balance issues] Pain at rest (0-10 scale): 7 Objective Objective:: Physical Exam: General: Alert and oriented x3, no acute distress, pleasant and cooperative Lungs: Respirations even and unlabored, symmetrical chest expansion Eyes: PERRL Musculoskeletal: Flexion and extension of cervical [spine] somewhat guarded secondary to pain, [antalgic gait noted] Neurological: Speech clear, no gross sensory deficit Has patient had previous pain injection?: No Conservative treatment options previously tried: Home exercise plan Length of treatment: Longer than 12 weeks Meds Home Medications and Allergies Home Medications ?Medication ?Instructions ?Recorded ?Confirmed ?Type apixaban 5 mg tablet (Eliquis) 5 mg PO BID ATRIAL FIB 11/07/22 05/01/24 History thiamine HCl (vitamin B1) 250 mg 250 mg PO DAILY Neuropathy #90 tabs 10/01/23 05/01/24 Rx tablet citalopram 20 mg tablet See Rx Instructions .Route 10/11/23 05/01/24 Rx .COMPLEX #90 tabs azelastine 137 mcg (0.1 %) nasal 1 spray intranasal BID PRN 01/06/24 05/01/24 History spray Breathing Problems alendronate 35 mg tablet 35 mg PO ONCE #88 tabs 01/10/24 05/01/24 Rx oxybutynin chloride 10 mg 10 mg PO DAILY URINARY #90 tabs 01/10/24 05/01/24 Rx tablet,extended release 24 hr methocarbamol 500 mg tablet 500 mg PO BID PRN Pain #60 tabs 01/31/24 05/01/24 Rx tizanidine 4 mg tablet 4 mg PO .prn MOOD 30 days #30 tabs 01/31/24 05/01/24 Rx tramadol 50 mg tablet 50 mg PO TID PRN pain #90 tabs 01/31/24 05/01/24 Rx ezetimibe 10 mg tablet (Zetia) 10 mg PO DAILY #90 tabs 02/21/24 05/01/24 Rx amlodipine 10 mg tablet 10 mg PO DAILY #90 tabs 02/28/24 05/01/24 Rx valsartan 80 mg tablet 80 mg PO DAILY . #90 tabs 04/13/24 05/01/24 Rx New Prescriptions to Start Prescriptions: Allergies Allergy/AdvReac Type Severity Reaction Status Date / Time [id number] Reductase AdvReac Severe Verified 04/23/24 13:06 Inhibitor Assessment and Plan *Assessment and plan (1) Degenerative disc disease, cervical: Status: Acute Category: Medical Code(s): M50.30 - Other cervical disc degeneration, unspecified cervical region (2) Cervical radiculopathy: Status: Acute Category: Medical Code(s): M54.12 - Radiculopathy, cervical region Plan I did review over with the patient and his daughter regarding all his questions related to the cervical epidural that he is scheduled for. Patient did have 1 in 2022 that did provide more than 50% improvement however he states was very painful. Patient does state following our conversation that he would like to proceed forward with this injection. I did counseling services manager him that he can always cancel it if he changes his mind on Saturday or even Saturday when he is scheduled. Patient acknowledges understanding and agrees with plan of care. Patient will return to clinic for his injection on Saturday. Patient has been instructed to contact the clinic with any concerns before the next appointment. Dr. Meza has reviewed this note and agrees with this plan of care. This note was dictated using voice recognition software and make contain errors or omissions. All injections are used with Lidocaine, Bupivacaine and Depo Medrol. Occasionally urine drug screen is needed to verify patient's compliance with our office pain contract. This is ordered based off specific treatments related to chronic pain with the potential to abuse certain medications.
== END 2024-05-01 23:59 | disposition home or self-care (01) ==
LOC: SC.PAIN 14:48
PROVIDERS: PCP Internal Medicine; Visit Provider Nurse Practitioner Family
DX: M50.10 Cervical disc disorder with radiculopathy, unspecified cervical region (principal); Z87.891 Personal history of nicotine dependence; Z79.01 Long term (current) use of anticoagulants
CPT/HCPCS: 99212; G0463

== ENCOUNTER 2024-05-05 10:23 | Day surgery (SDC) | payer MEDICARE, OTHER, SELFPAY ==
[2024-05-05 10:29] VITALS: BP 117/80; PULSE 81; RESP 16; TEMP 36.6; O2SAT 97; BMI 28.2
[2024-05-05] MEDS: IOPAMIDOL-200 (41%);10ML VIAL 10 ML IV (10:35)
--- NOTE | 2024-05-05 10:59 | P.PCN_ITS ---
Procedure Date: 05/05/24 Time: 11:00 Anesthesiologist:: Roman Krishnamurthy CRNA Complications:: None Pre-procedure Diagnosis:: Degenerative disc cervical spine multilevels. Cervical radiculopathy. Cervical spondylosis. Multilevel cervical facet arthropathy. Post-procedure Diagnosis:: Same. Indications for Procedure:: Patient is a pleasant 78-year-old male who comes our clinic today for cervical epidural steroid injection. Patient describes posterior cervical neck pain as well as right scapula pain, some right shoulder pain at times. Patient could very well benefit from cervical facet blocks in the future. Procedure Details:: Procedure:Cervical epidural steroid injection Informed consent was obtained and the risks and benefits of the procedure were explained to the patient. The patient was taken to the procedure room and noninvasive monitors placed, including noninvasive blood pressure cuff and pulse oximeter. The neck was prepped using Chloraprep as a cleansing solution. The C6- C7 interspace was viewed using fluroscopy. The skin and subcutaneous tissues were anesthetized using lidocaine 1.5% and a 25-gauge needle. After this an 18- gauge Touhy epidural needle was placed into the C6-C7 interspace under fluroscopy guidance and advanced using loss of resistance to air until the epidural space was encountered. After confirmation of needle placement in the epidural space using contrast dye, a solution containing normal saline, 2 mL and Depo-Medrol 80 mg was incrementally injected into the cervical epidural space.~ The patient tolerated the procedure well with no complications. The patient was observed in the Pain Clinic and then discharged home neurologically intact. Plan and Disposition:: Patient was discharged without incident.
[2024-05-05 11:06] VITALS: BP 126/76; PULSE 78; RESP 16; TEMP 36.6; O2SAT 97
[2024-05-05] MEDS: methylPREDNISolone ACETATE 80MG/ML VIAL 80 MG (11:40)
[2024-05-05 12:03] VITALS: BP 139/87; PULSE 91; RESP 18; O2SAT 95
[2024-05-05 12:06] VITALS: BP 139/87; PULSE 91; RESP 18; O2SAT 95
== END 2024-05-05 11:06 | disposition home or self-care (01) ==
PROVIDERS: PCP Internal Medicine; Visit Provider Nurse Anesthetist, Certified Registered
DX: M50.30 Other cervical disc degeneration, unspecified cervical region (principal); M47.22 Other spondylosis with radiculopathy, cervical region
CPT/HCPCS: 62321; J1010; Q9966

== ENCOUNTER 2024-05-13 13:46 | Outpatient (CLI) | payer MEDICARE, OTHER, SELFPAY ==
[2024-05-13 14:29] LABS: Basophils # 0.1 K/mm3 (0-0.2); Basophils % 0.9 % (0.1-2.0); Eosinophils # 0.3 K/mm3 (0.0-0.4); Eosinophils % 2.8 % (0.1-12.0); Hematocrit 51.6 % (42.0-52.0); Hemoglobin 17.1 g/dL (14.1-18.0); Lymphocytes # 2.3 K/mm3 (0.7-4.5); Lymphocytes % 21.6 % (10-50); Mean Corpuscular HGB Conc 33.1 g/dL (31.8-35.4); Mean Corpuscular Hemoglobin 31.5 pg (27.0-31.2); Mean Platelet Volume 11.4 fl (7.4-10.4); Monocytes # 1.3 K/mm3 (0.1-1.0); Monocytes % 11.9 % (1.7-9.3); Neutrophils # 6.5 K/mm3 (1.8-7.8); Neutrophils % 61.7 % (37.0-80.0); Platelet Count 153 K/mm3 (142-424); Red Blood Count 5.43 M/mm3 (4.60-6.20); Red Cell Distribution Width 13.7 % (11.5-17.5); White Blood Count 10.5 K/mm3 (4.8-10.8)
[2024-05-13 14:59] LABS: Alanine Aminotransferase 30 U/L (12-78); Albumin Level 4.8 g/dl (3.5-5.0); Alkaline Phosphatase 45 U/L (38-126); Anion Gap 8.6 mEq/L (5-15); Aspartate Amino Transferase 28 U/L (17-59); Bilirubin,Direct 0.3 mg/dl (0.0-0.4); Bilirubin,Indirect 0.6 mg/dL (0.0-0.9); Bilirubin,Total 0.9 mg/dl (0.2-1.3); Bilirubin,Unconjugated 0.5 mg/dL (0.0-1.1); Blood Urea Nitrogen 35 mg/dl (9-20); Calcium 10.2 mg/dl (8.4-10.2); Carbon Dioxide 31 mmol/L (22.0-30.0); Chloride 107 mmol/L (98-107); Chol/HDL Ratio 3.8 (1-3.5); Cholesterol 201 mg/dl (140-200); Estimated Glomerular Filt Rate 58 ml/min (>60); GFR (African American) 70 ML/MIN (>60); Glucose 99 mg/dl (74-100); HDL Cholesterol 53 mg/dl (40-60); Magnesium 1.8 mg/dl (1.6-2.3); Potassium 4.6 mmoL/L (3.5-5.1); Sodium 142 mmol/L (136-145); Total Protein,Serum 7.1 g/dl (6.3-8.2); Triglycerides 309 mg/dl (30-150); VLDL Cholesterol 62 mg/dL (0-40)
[2024-05-13 15:11] LABS: Direct LDL Cholesterol 105.96 mg/dL (100-129)
[2024-05-13 15:16] LABS: Free T4 (Free Thyroxine) 0.97 ng/dl (0.78-2.19)
[2024-05-13 15:30] LABS: Thyroid Stimulating Hormone 3.37 uIU/mL (0.465-4.68)
== END 2024-05-13 23:59 | disposition home or self-care (01) ==
LOC: LAB 13:48
PROVIDERS: PCP Internal Medicine; Visit Provider Physician Assistant
DX: G62.9 Polyneuropathy, unspecified (principal); I11.9 Hypertensive heart disease without heart failure; M21.371 Foot drop, right foot; R53.83 Other fatigue; R06.09 Other forms of dyspnea; I12.9 Hypertensive chronic kidney disease with stage 1 through stage 4 chronic kidney disease, or unspecified chronic kidney disease; N18.9 Chronic kidney disease, unspecified; R94.30 Abnormal result of cardiovascular function study, unspecified; I48.20 Chronic atrial fibrillation, unspecified; I25.10 Atherosclerotic heart disease of native coronary artery without angina pectoris; R60.9 Edema, unspecified; E78.5 Hyperlipidemia, unspecified; Z87.891 Personal history of nicotine dependence
CPT/HCPCS: 36415; 80048; 80061; 80076; 83735; 84439; 84443; 85025

== ENCOUNTER 2024-05-20 14:39 | Outpatient (POV) | payer MEDICARE, OTHER, SELFPAY ==
[2024-05-20 14:53] VITALS: BP 134/87; PULSE 95; RESP 14; O2SAT 97; BMI 25.7
--- NOTE | 2024-05-20 15:01 | EXP.PAIN.SOA ---
[facility] Disclaimer: The information contained in this section may have been updated after the patient was seen, as this information can be updated by other users. Medical History (Updated 05/20/24 @ 15:03 by Kelly Corral APRN) Edema Collapse of left external ear canal Impacted cerumen of left ear Right leg weakness Intolerance to BiPAP/CPAP Acute right otitis media Bilateral hearing loss due to cerumen impaction Fungal otitis externa Tinnitus, left ear Decreased hearing of left ear High frequency hearing loss Foot drop, right Acute left otitis media Hearing loss Impacted cerumen Fatigue Dyspnea Overactive bladder Depression Arthritis Rosacea History of COVID-19 History of gastroesophageal reflux (GERD) Allergies History of cataract Hypertension Atrial fibrillation Skin cancer Bloating Gastroesophageal reflux disease WILIAM (obstructive sleep apnea) CAD (coronary artery disease) Abnormal electrocardiography Abnormal cardiovascular stress test Atypical angina Surgical History History of tonsillectomy and adenoidectomy History of cataract surgery History of bladder surgery H/O hemorrhoidectomy Family History Other No significant family history Social History Smoking Status: Former smoker tobacco type: cigarettes packs per day: 1 second hand exposure: No alcohol intake: current alcohol intake frequency: a few times a week counseling provided: none substance use type: denies use current occupational status: other Travel in the last 8 weeks: None household members: other housing: house current occupation: retired current occupational exposures/hazards: No caffeine: Yes PM Subjective & Objective Subjective Subjective:: Patient is a pleasant 78-year-old male who presents today for follow-up of cervical epidural steroid injection C6-C7 on 05/05/2024. Today he rates his pain a 8 out of 10. He states that the injections helped for about 2 days and then he went right back to his baseline. Patient does state that today his biggest pain is in and around his right shoulder blade and does radiate down those muscles into his low back. He describes it as a sharp tense sensation that contracts and knots up. He states this is fairly constant and is interfering with his ability perform activities of daily living such as cooking and cleaning as well as even sleeping. Patient states the pain just gets very unbearable. Patient is currently managed with tizanidine 4 mg at bedtime and methocarbamol 500 mg twice a day during the day along with tramadol 50 mg 3 times a day from our office. He denies any side effects from this medication. His Reji has been reviewed and is appropriate. Review of Systems: General: No recent weight changes, no fever, no sleep disturbances Respiratory: No cough, no shortness of air, no recurring pulmonary infections Cardiovascular/peripheral vascular: No chest pain, no palpitations, no edema, no shortness of breath Gastrointestinal: No new onset incontinence, normal bowel movements reported Genitourinary: No new onset incontinence Musculoskeletal: Right shoulder pain, right mid back pain, right low back pain Psychiatric: [Normal mood/affect] Neurological: [Denies weakness in extremities], [denies balance issues] Pain at rest (0-10 scale): 8 Objective Objective:: Physical Exam: General: Alert and oriented x3, no acute distress, pleasant and cooperative Lungs: Respirations even and unlabored, symmetrical chest expansion Eyes: PERRL Musculoskeletal: Flexion and extension of thoracic [spine] somewhat guarded secondary to pain, [antalgic gait noted] point tenderness along right rhomboid muscles, right thoracic/lumbar paraspinous/latissimus muscles Neurological: Speech clear, no gross sensory deficit Has patient had previous pain injection?: Yes Percent improvement in pain since last injection: Help 2 days Conservative treatment options previously tried: Home exercise plan Length of treatment: Longer than 12 weeks Meds Home Medications and Allergies Home Medications ?Medication ?Instructions ?Recorded ?Confirmed ?Type apixaban 5 mg tablet (Eliquis) 5 mg PO BID ATRIAL FIB 11/07/22 05/20/24 History thiamine HCl (vitamin B1) 250 mg 250 mg PO DAILY Neuropathy #90 tabs 10/01/23 05/20/24 Rx tablet citalopram 20 mg tablet See Rx Instructions .Route 10/11/23 05/20/24 Rx .COMPLEX #90 tabs azelastine 137 mcg (0.1 %) nasal 1 spray intranasal BID PRN 01/06/24 05/20/24 History spray Breathing Problems alendronate 35 mg tablet 35 mg PO ONCE #88 tabs 01/10/24 05/20/24 Rx oxybutynin chloride 10 mg 10 mg PO DAILY URINARY #90 tabs 01/10/24 05/20/24 Rx tablet,extended release 24 hr methocarbamol 500 mg tablet 500 mg PO BID PRN Pain #60 tabs 01/31/24 05/20/24 Rx tramadol 50 mg tablet 50 mg PO TID PRN pain #90 tabs 01/31/24 05/20/24 Rx ezetimibe 10 mg tablet (Zetia) 10 mg PO DAILY #90 tabs 02/21/24 05/20/24 Rx valsartan 80 mg tablet 80 mg PO DAILY . #90 tabs 04/13/24 05/20/24 Rx tizanidine 4 mg tablet See Rx Instructions .Route 05/06/24 05/20/24 Rx .COMPLEX #30 ea furosemide 20 mg tablet 20 mg PO DAILY #90 tabs 05/13/24 05/20/24 Rx spironolactone 25 mg tablet 25 mg PO DAILY #90 tabs 05/13/24 05/20/24 Rx New Prescriptions to Start Prescriptions: Allergies Allergy/AdvReac Type Severity Reaction Status Date / Time [id number] Reductase AdvReac Severe Verified 05/13/24 13:06 Inhibitor Assessment and Plan *Assessment and plan (1) Myofascial pain: Status: Acute Category: Medical Code(s): M79.18 - Myalgia, other site (2) Thoracic back pain: Status: Acute Category: Medical Code(s): M54.6 - Pain in thoracic spine (3) Other spondylosis with radiculopathy, lumbar region: Status: Chronic Category: Medical Code(s): M47.26 - Other spondylosis with radiculopathy, lumbar region (4) Right shoulder pain: Status: Acute Category: Medical Code(s): M25.511 - Pain in right shoulder Plan I did discuss at length with the patient that due to his worsening pain more prominent along the bottom of his right shoulder blade with tenderness radiating down that he may benefit from trigger point injections. Patient had point tenderness along his right rhomboid, right thoracic/lumbar paraspinous muscles/latissimus muscles. I did discuss with the patient that I do believe he would benefit from trigger point injections at this location. Patient does state that he knows he has bone spurs at his mid back and whether or not that is causing a lot of this pain. I did discuss with the patient that where his tenderness today is more into the muscles and I do believe it may be beneficial for us to increase the methocarbamol to 750 mg twice a day. Patient is agreeable to this option. Patient does state that he had been doing some physical therapy however he ended up getting sick with COVID and has not gone back. Patient does state he has a new order and is planning on following up with them soon. Patient will be scheduled for trigger point injections of his right rhomboid, right thoracic/lumbar paraspinous/latissimus muscles. These will be done without fluoroscopic or ultrasound guidance. Patient has tried and failed conservative therapy including continued at home stretching exercise for longer than 12 weeks. Patient has been instructed to contact the clinic with any concerns before the next appointment. Dr. Meza has reviewed this note and agrees with this plan of care. This note was dictated using voice recognition software and make contain errors or omissions. All injections are used with Lidocaine, Bupivacaine and Depo Medrol. Occasionally urine drug screen is needed to verify patient's compliance with our office pain contract. This is ordered based off specific treatments related to chronic pain with the potential to abuse certain medications.
== END 2024-05-20 23:59 | disposition home or self-care (01) ==
PROVIDERS: PCP Internal Medicine; Visit Provider Nurse Practitioner Family
DX: M79.18 Myalgia, other site (principal); M54.6 Pain in thoracic spine; M47.26 Other spondylosis with radiculopathy, lumbar region; M25.511 Pain in right shoulder; Z87.891 Personal history of nicotine dependence; Z73.89 Other problems related to life management difficulty
CPT/HCPCS: 99212; G0463

== ENCOUNTER 2024-06-05 11:27 | Day surgery (SDC) | payer MEDICARE, OTHER, SELFPAY ==
[2024-06-05 11:34] VITALS: BP 134/82; PULSE 76; RESP 18; TEMP 37.1; O2SAT 97; BMI 25.7
--- NOTE | 2024-06-05 11:53 | EXP.PAIN.PRO ---
Procedure Date: 06/05/24 Time: 12:00 Anesthesiologist:: Kelly Corral APRN Complications:: None Pre-procedure Diagnosis:: Degenerative disc disease of cervical, lumbar and cervical and lumbar radiculopathy symptoms, myofascial pain, cervical facet arthropathy, chronic pain syndrome Post-procedure Diagnosis:: Same Indications for Procedure:: Patient is a pleasant 78-year-old male who presents today for trigger point injections. Today he rates his pain a 9 out of 10. Patient does state he still has multiple pain areas including tenderness around his upper neck and shoulders that hurts with touch. Patient does state the most painful area is still that we did discuss at his last visit they are at his mid back that goes around his right shoulder blade. Patient does state that it is constant and does interfere with his ability perform activities of daily living. His Reji has been reviewed and is appropriate. Physical Exam: General: Alert and oriented x3, no acute distress, pleasant and cooperative Lungs: Respirations even and unlabored, symmetrical chest expansion Eyes: PERRL Musculoskeletal: Flexion and extension of the thoracic [spine] somewhat guarded secondary to pain, [antalgic gait noted] point tenderness along his right rhomboid and radiating down to his right thoracic/latissimus muscles, more extreme point tenderness along the distal scapular Neurological: Speech clear, no gross sensory deficit Procedure Details:: Patient did have noninvasive blood pressure cuff applied and pulse oximeter. Patient was placed in a sitting position and palpated along his right rhomboid and right thoracic paraspinous/latissimus muscles. Areas of point tenderness were marked and using a sterile 25-gauge needle approximately 10 mL of 0.25% bupivacaine, 1% lidocaine and 80 mg Depo-Medrol were incrementally injected into his right rhomboid and right thoracic paraspinous/latissimus muscles. Needle was removed and sterile bandages applied. Patient tolerated the procedure well with no complications and was discharged neurologically intact. Plan and Disposition:: Patient tolerated the procedure well with no complications and was discharged neurologically intact. Patient was reassessed with his pain at the end of our procedure and he did state that the pain in that specific region was relieved following the injections and that they did feel nice and numb. Patient was still complaining planing also of the chronic neck pain which has been going on for years. Patient has had epidurals and cervical facet injections in the past. We did discuss that todays Visit that we can follow-up for additional injections related to his neck coming up. Patient agrees with this plan of care. Patient patient will return to clinic in 2 weeks for reevaluation of symptoms and plan of care. Patient has been instructed to contact the clinic with any concerns before the next appointment. Dr. Meza has reviewed this note and agrees with this plan of care. This note was dictated using voice recognition software and make contain errors or omissions. All injections are used with Lidocaine, Bupivacaine and Depo Medrol. Occasionally urine drug screen is needed to verify patient's compliance with our office pain contract. This is ordered based off specific treatments related to chronic pain with the potential to abuse certain medications.
[2024-06-05 12:06] VITALS: BP 134/85; PULSE 76; RESP 18; O2SAT 97
[2024-06-05 12:10] VITALS: BP 140/91; PULSE 88; RESP 18; O2SAT 95
[2024-06-05] MEDS: BUPIVACAINE 0.25% 10ML INJ 25 MG IJ (13:23)
[2024-06-05] MEDS: LIDOCAINE 1% 5ML PF VIAL 5 ML (13:23)
[2024-06-05] MEDS: methylPREDNISolone ACETATE 80MG/ML VIAL 80 MG (13:23)
== END 2024-06-05 12:12 | disposition home or self-care (01) ==
PROVIDERS: PCP Internal Medicine; Visit Provider Nurse Practitioner Family
DX: M79.18 Myalgia, other site (principal); G89.4 Chronic pain syndrome; M50.10 Cervical disc disorder with radiculopathy, unspecified cervical region; M51.16 Intervertebral disc disorders with radiculopathy, lumbar region; M47.22 Other spondylosis with radiculopathy, cervical region
CPT/HCPCS: 20553; J1010

== ENCOUNTER 2024-08-26 15:00 | Outpatient (POV) | payer MEDICARE, OTHER, SELFPAY ==
[2024-08-26 15:11] VITALS: BP 134/88; PULSE 96; RESP 16; O2SAT 98; BMI 25.1
--- NOTE | 2024-08-26 15:20 | EXP.PAIN.SOA ---
[facility] Disclaimer: The information contained in this section may have been updated after the patient was seen, as this information can be updated by other users. 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, worse, left per audiometric Foot drop, right Acute left otitis media Hearing loss Impacted cerumen Fatigue Dyspnea Overactive bladder Depression Arthritis Rosacea History of COVID-19 History of gastroesophageal reflux (GERD) Allergies History of cataract Hypertension Atrial fibrillation Skin cancer Bloating Gastroesophageal reflux disease WILIAM (obstructive sleep apnea) CAD (coronary artery disease) OCT 2020-Mild nonflow limiting coronary disease with preserved ejection fraction Mildly elevated LVEDP consistent with diastolic dysfunction Abnormal electrocardiography Abnormal cardiovascular stress test Atypical angina Surgical History History of tonsillectomy and adenoidectomy History of cataract surgery History of bladder surgery H/O hemorrhoidectomy Family History Other No significant family history Social History Smoking Status: Former smoker tobacco type: cigarettes packs per day: 1 second hand exposure: No alcohol intake: current alcohol intake frequency: a few times a week counseling provided: none substance use type: denies use current occupational status: other Travel in the last 8 weeks?: None household members: other housing: house current occupation: retired current occupational exposures/hazards: No caffeine: Yes PM Subjective & Objective Subjective Subjective:: PainPatient is a pleasant 79-year-old male who presents today for worsening mid back pain along the right side. He does write it a 9 out of 10. Patient denies any new falls or injuries. He does state it is still that pain that we were last treating him with all around he has lower right scapula area. He states it radiates around towards his ribs with numbness and tingling. Patient did previously have trigger point injections of this area back in May and he states it did help significantly however it only lasted a couple of days. Patient states that overall he did not feel like it was as beneficial since it was very temporary. Patient is interested in any help we may be able to provide as he states the pain is interfering with his ability to perform activities of daily living such as cooking and cleaning. Patient states it is worse with any type of increased activity or movement and that he really cannot do anything due to the worsening pain. He does also make mention he still has his chronic neck pain and has been also experiencing some sharp knee pain bilaterally. Patient does state overall the mid back pain is the worst pain and he would like us to see about improvement on this first. Patient is prescribed blood thinners from Dr. Hampton's office. His Reji has been reviewed and is appropriate. Review of Systems: General: No recent weight changes, no fever, no sleep disturbances Respiratory: No cough, no shortness of air, no recurring pulmonary infections Cardiovascular/peripheral vascular: No chest pain, no palpitations, no edema, no shortness of breath Gastrointestinal: No new onset incontinence, normal bowel movements reported Genitourinary: No new onset incontinence Musculoskeletal:, Right-sided mid back pain, rib pain Psychiatric: [Normal mood/affect] Neurological: [Denies weakness in extremities], [denies balance issues] Pain at rest (0-10 scale): 9 Objective Objective:: Physical Exam: General: Alert and oriented x3, no acute distress, pleasant and cooperative Lungs: Respirations even and unlabored, symmetrical chest expansion Eyes: PERRL Musculoskeletal: Flexion and extension of thoracic [spine] somewhat guarded secondary to pain, [antalgic gait noted] point tenderness noted along the right lateral border of his scapular area Neurological: Speech clear, no gross sensory deficit Has patient had previous pain injection?: No Conservative treatment options previously tried: Home exercise plan Length of treatment: Longer than 12 weeks Meds Home Medications and Allergies Home Medications ?Medication ?Instructions ?Recorded ?Confirmed ?Type thiamine HCl (vitamin B1) 250 mg 250 mg PO DAILY Neuropathy #90 tabs 10/01/23 08/26/24 Rx tablet azelastine 137 mcg (0.1 %) nasal 1 spray intranasal BID PRN 01/06/24 08/26/24 History spray Breathing Problems oxybutynin chloride 10 mg 10 mg PO DAILY URINARY #90 tabs 01/10/24 08/26/24 Rx tablet,extended release 24 hr ezetimibe 10 mg tablet (Zetia) 10 mg PO DAILY #90 tabs 02/21/24 08/26/24 Rx valsartan 80 mg tablet 80 mg PO DAILY . #90 tabs 04/13/24 08/26/24 Rx tizanidine 4 mg tablet See Rx Instructions .Route 05/06/24 08/26/24 Rx .COMPLEX #30 ea spironolactone 25 mg tablet 25 mg PO DAILY #90 tabs 05/13/24 08/26/24 Rx methocarbamol 750 mg tablet 750 mg PO BID #60 tabs 05/20/24 08/26/24 Rx clotrimazole-betamethasone 1 1 applic topical BID #45 grams 06/02/24 08/26/24 Rx %-0.05 % topical cream alendronate 35 mg tablet 35 mg PO WEEKLY #35 tabs 07/02/24 08/26/24 Rx furosemide 20 mg tablet 20 mg PO DAILY PRN Fluid 07/29/24 08/26/24 History apixaban 5 mg tablet (Eliquis) 5 mg PO BID ATRIAL FIB #180 tabs 08/04/24 08/26/24 Rx citalopram 20 mg tablet See Rx Instructions .Route 08/11/24 08/26/24 Rx .COMPLEX #90 tabs tramadol 50 mg tablet 50 mg PO TID PRN pain #90 tabs 08/12/24 08/26/24 Rx New Prescriptions to Start Prescriptions: Allergies Allergy/AdvReac Type Severity Reaction Status Date / Time [id number]-[id number] Reductase AdvReac Severe Verified 07/29/24 11:26 Inhibitor Assessment and Plan *Assessment and plan (1) Thoracic radiculopathy: Status: Acute Category: Medical Code(s): M54.14 - Radiculopathy, thoracic region (2) Myofascial pain: Status: Acute Category: Medical Code(s): M79.18 - Myalgia, other site (3) Thoracic back pain: Status: Acute Category: Medical Code(s): M54.6 - Pain in thoracic spine Plan Patient is experiencing worsening pain in his mid back that does radiate out towards his ribs along the right side. Patient did have limited range of motion of his thoracic spine with point tenderness along the right side approximately T4-T5 level. I did discuss with the patient that he may benefit from a thoracic epidural at this location. Risk and benefits were discussed with the patient and he would like to proceed forward with this plan of care. Patient has tried and failed conservative therapy including oral medications, heat and ice, topicals, physical therapy and continued at home stretching exercise for longer than 12 weeks. Patient has had this mid back pain for longer than 3 months. Patient has not had any thoracic epidurals. We will submit to insurance for a T GILMAR T4-T5 under fluoroscopy. Patient is currently on blood thinner written by Dr. Hampton's office. We will reach out to this provider and confirm he can stop this medication prior to this injection. Patient agrees with this plan of care. Patient has been instructed to contact the clinic with any concerns before the next appointment. Dr. Meza has reviewed this note and agrees with this plan of care. This note was dictated using voice recognition software and make contain errors or omissions. All injections are used with Lidocaine, Bupivacaine and dexamethasone. Occasionally urine drug screen is needed to verify patient's compliance with our office pain contract. This is ordered based off specific treatments related to chronic pain with the potential to abuse certain medications.
== END 2024-08-26 23:59 | disposition home or self-care (01) ==
LOC: SC.PAIN 15:02
PROVIDERS: PCP Internal Medicine; Visit Provider Nurse Practitioner Family
DX: M54.14 Radiculopathy, thoracic region (principal); Z79.01 Long term (current) use of anticoagulants
CPT/HCPCS: 99212; G0463

== ENCOUNTER 2024-09-22 11:21 | Day surgery (SDC) | payer MEDICARE, OTHER, SELFPAY ==
[2024-09-22 11:30] VITALS: BP 108/79; PULSE 55; RESP 18; O2SAT 96; BMI 25.7
--- NOTE | 2024-09-22 12:00 | P.PCN_ITS ---
Procedure Date: 09/22/24 Time: 11:50 Anesthesiologist:: Roman Krishnamurthy CRNA Complications:: None Pre-procedure Diagnosis:: Myofascial pain right thoracic paraspinous muscle. Right rhomboid. Post-procedure Diagnosis:: Same. Indications for Procedure:: Patient is a very pleasant 79-year-old male who comes our clinic today for T4-5 thoracic epidural steroid injection. However, after talking with the patient and reviewing imaging we decided to go with trigger point ejections of the right paraspinous as well as right rhomboid. He describes the pain as muscular in nature. Positional. Intermittent. He rates his pain 6/10. Procedure Details:: Details of the procedure explained to the patient. The patient taken procedure room placed in the sitting position. The over the right thoracic paraspinous muscle as well as right trapezius muscle and right rhomboid was cleaned using chlorhexidine as a cleansing solution. Using a 25-gauge inch and half needle the right trapezius, right thoracic paraspinous muscle and right rhomboid was ac cessed into 3 separate areas. After negative aspiration 2 cc of 1% lidocaine +2 cc 0.25% Marcaine and dexamethasone was injected. Patient tolerated procedure without difficulty. No complications. Plan and Disposition:: Patient was reevaluated 10 minutes post procedure. He reports 70 to 80% improvement terms of his right shoulder and right trapezius pain. He was discharged without incident.
[2024-09-22 12:01] VITALS: BP 128/73; PULSE 73; RESP 18; O2SAT 97
[2024-09-22] MEDS: DEXAMETHASONE 10MG/ML 1ML VIAL 10 MG (12:06)
[2024-09-22 12:10] VITALS: BP 142/79; PULSE 91; RESP 18; O2SAT 92
[2024-09-22 12:17] VITALS: BP 142/79; PULSE 91; RESP 18; O2SAT 92
== END 2024-09-22 12:01 | disposition home or self-care (01) ==
PROVIDERS: PCP Internal Medicine; Visit Provider Nurse Anesthetist, Certified Registered
DX: M79.18 Myalgia, other site (principal); I48.91 Unspecified atrial fibrillation; I25.10 Atherosclerotic heart disease of native coronary artery without angina pectoris; F32.A Depression, unspecified; K21.9 Gastro-esophageal reflux disease without esophagitis; Z86.16 Personal history of COVID-19; G47.33 Obstructive sleep apnea (adult) (pediatric); Z85.828 Personal history of other malignant neoplasm of skin; Z87.891 Personal history of nicotine dependence; Z79.01 Long term (current) use of anticoagulants; Z79.899 Other long term (current) drug therapy
CPT/HCPCS: 20553; J1100

== ENCOUNTER 2024-10-06 16:13 | Outpatient (CLI) | payer MEDICARE, OTHER, SELFPAY ==
--- OUTSIDE RECORDS SUMMARY | 2024-10-06 16:16 | XMS_ITS | Clinical Summary ---
Author Organization [facility] yste Address [address] [place] [address] Care Team Providers Care Technical Supervisor Name Role Phone Addy Lara MD Primary Care Provider [phone] Social History Tobacco Use Types Packs/Day Years [...] Health Maintenance Due Date Last Done Comments TDAP/TD VACCINES (1 - Tdap) 06/06/1962 COLOGUARD 06/06/1988 COLON CANCER SCREENING 5 YEAR SIGMOIDOSCOPY 06/06/1988 COLONOSCOPY 06/06/1988 COLORECTAL CANCER SCREENING 06/06/1988 CT COLONOGRAPHY 06/06/1988 FECAL OCCULT BLOOD TEST 06/06/1988 FIT Testing (1 year) 06/06/1988 Pneumococcal Vaccine 50+ (1 of 1 - PCV) 06/06/1993 ZOSTER VACCINE (1 of 2) 06/06/1993 ANNUAL PHYSICAL 07/17/2017 RSV Vaccine - Adults (1 - 1-dose 75+ series) 9 COVID-19 Vaccine ( - season) 2023 INFLUENZA VACCINE 12/09/2024 Insurance [place] [id number] MEDICARE A & B Member Subscriber Plan / Payer (Ef fective 2005-Present) Name:[employer], [place] Member ID:[id number] Relation to Subscriber:Self Name:[employer], [place] Subscriber ID:[id number] Payer ID:[id number] Group ID:Not on file Type:Not on file Address: [address] [place] [address] Care Teams Technical Supervisor Relationship Specialty Start Date End Date Addy Lara MD [address] [facility] [address] [place] [id number] PCP - General Internal Medicine 11/19/15
[2024-10-06 17:05] LABS: Hematocrit 51.8 % (42.0-52.0); Hemoglobin 16.9 g/dL (14.1-18.0); Immature Granulocytes % 0.8 %; Mean Corpuscular HGB Conc 32.6 g/dL (31.8-35.4); Mean Corpuscular Hemoglobin 31.5 pg (27.0-31.2); Mean Corpuscular Volume 96.5 fl (80-94); Nucleated Red Blood Cells % 0 %; Platelet Count 140 K/mm3 (142-424); Red Blood Count 5.37 M/mm3 (4.60-6.20); Red Cell Distribution Width-SD 45.2 fL; White Blood Count 9.5 K/mm3 (4.8-10.8)
[2024-10-06 18:43] LABS: Albumin Level 4.0 g/dl (3.5-5.0); Chloride 103 mmol/L (98-107); Sodium 137 mmol/L (136-145)
[2024-10-06 18:44] LABS: Potassium 5.1 mmoL/L (3.5-5.1)
[2024-10-06 18:46] LABS: Alanine Aminotransferase 25 U/L (12-78); Anion Gap 11.1 mEq/L (5-15); Aspartate Amino Transferase 31 U/L (17-59); Bilirubin,Unconjugated 0.4 mg/dL (0.0-1.1); Blood Urea Nitrogen 32 mg/dl (9-20); Carbon Dioxide 28 mmol/L (22.0-30.0); Cholesterol 215 mg/dl (140-200); Creatinine,Serum 1.50 mg/dl (0.66-1.25); Estimated Glomerular Filt Rate 45 ml/min (>60); GFR (African American) 54 ML/MIN (>60); Total Protein,Serum 7.4 g/dl (6.3-8.2); Triglycerides 221 mg/dl (30-150)
[2024-10-06 18:47] LABS: Alkaline Phosphatase 54 U/L (38-126); Bilirubin,Direct 0.2 mg/dl (0.0-0.4); Bilirubin,Indirect 0.4 mg/dL (0.0-0.9); Bilirubin,Total 0.6 mg/dl (0.2-1.3); Calcium 10.0 mg/dl (8.4-10.2); Glucose 90 mg/dl (74-100); HDL Cholesterol 42 mg/dl (40-60); Magnesium 1.9 mg/dl (1.6-2.3)
[2024-10-06 18:57] LABS: Free T4 (Free Thyroxine) 0.99 ng/dl (0.78-2.19)
[2024-10-06 19:34] LABS: Thyroid Stimulating Hormone 1.97 uIU/mL (0.465-4.68)
== END 2024-10-06 23:59 | disposition home or self-care (01) ==
LOC: LAB 16:14
PROVIDERS: PCP Internal Medicine; Visit Provider Physician Assistant
DX: I25.10 Atherosclerotic heart disease of native coronary artery without angina pectoris (principal); I10 Essential (primary) hypertension
CPT/HCPCS: 36415; 80048; 80061; 80076; 83735; 84439; 84443; 85025

== ENCOUNTER 2024-10-22 15:08 | Outpatient (POV) | payer MEDICARE, OTHER, SELFPAY ==
--- OUTSIDE RECORDS SUMMARY | 2024-10-22 15:12 | XMS_ITS | Clinical Summary ---
Author Organization [facility] yste Address [address] [place] [address] Care Team Providers Care Ball Fringe Machine Operator Name Role Phone Addy Lara MD Primary Care Provider [phone] Social History Tobacco Use Types Packs/Day Years [...] INFLUENZA VACCINE 12/09/2024 Insurance [place] [id number] MEDICARE A & B Member Subscriber Plan / Payer (Ef fective 2005-Present) Name:[employer], [place] Member ID:[id number] Relation to Subscriber:Self Name:[employer], [place] Subscriber ID:[id number] Payer ID:[id number] Group ID:Not on file Type:Not on file Address: [address] [place] [address] Care Teams Ball Fringe Machine Operator Relationship Specialty Start Date End Date Addy Lara MD [address] [facility] [address] [place] [id number] PCP - General Internal Medicine 11/19/15
[2024-10-22 15:29] VITALS: BP 133/83; PULSE 69; RESP 14; O2SAT 96; BMI 25.1
--- NOTE | 2024-10-22 15:43 | EXP.PAIN.SOA ---
[facility] Disclaimer: The information contained in this section may have been updated after the patient was seen, as this information can be updated by other users. 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, worse, left per audiometric Foot drop, right Acute left otitis media Hearing loss Impacted cerumen Fatigue Dyspnea Overactive bladder Depression Arthritis Rosacea History of COVID-19 History of gastroesophageal reflux (GERD) Allergies History of cataract Hypertension Atrial fibrillation Skin cancer Bloating Gastroesophageal reflux disease WILIAM (obstructive sleep apnea) CAD (coronary artery disease) OCT 2020-Mild nonflow limiting coronary disease with preserved ejection fraction Mildly elevated LVEDP consistent with diastolic dysfunction Abnormal electrocardiography Abnormal cardiovascular stress test Atypical angina Surgical History History of tonsillectomy and adenoidectomy History of cataract surgery History of bladder surgery H/O hemorrhoidectomy Family History Other No significant family history Social History Smoking Status: Former smoker tobacco type: cigarettes packs per day: 1 second hand exposure: No alcohol intake: current alcohol intake frequency: a few times a week counseling provided: none substance use type: denies use current occupational status: other Travel in the last 8 weeks?: None household members: other housing: house current occupation: retired current occupational exposures/hazards: No caffeine: Yes PM Subjective & Objective Subjective Subjective:: Patient is a pleasant 79-year-old male who presents today for follow-up of trigger point injections of his right paraspinous and right rhomboid muscles on 09/22/2024. Today he rates his pain a 9 out of 10. He does state that he had an injury where he fell hitting his low back and right hip area. He states he has had much more severe pain in his right shoulder, low back and right hip since. He states that it has not improved but even gotten worse. Patient does state that the trigger point injections only gave minimal improvements and that he just feels like it is much deeper where he is having the pain. Patient is interested in any help we may be able to provide. He states that the tramadol helps a little but the methocarbamol 750 often will help to make him a little bit more groggy. Patient states that the pain is just constant and does interfere with his ability perform activities of daily living such as cooking and cleaning. He still states overall most of his pain is worse at the right shoulder blade area. Patient has continued conservative treatments with no additional changes. His Reji has been reviewed and is appropriate. Review of Systems: General: No recent weight changes, no fever, no sleep disturbances Respiratory: No cough, no shortness of air, no recurring pulmonary infections Cardiovascular/peripheral vascular: No chest pain, no palpitations, no edema, no shortness of breath Gastrointestinal: No new onset incontinence, normal bowel movements reported Genitourinary: No new onset incontinence Musculoskeletal: Right scapular pain, neck pain, low back pain, right hip pain Psychiatric: [Normal mood/affect] Neurological: [Denies weakness in extremities], [denies balance issues] Pain at rest (0-10 scale): 9 Objective Objective:: Physical Exam: General: Alert and oriented x3, no acute distress, pleasant and cooperative Lungs: Respirations even and unlabored, symmetrical chest expansion Eyes: PERRL Musculoskeletal: Flexion and extension of thoracic [spine] somewhat guarded secondary to pain, [antalgic gait noted] Neurological: Speech clear, no gross sensory deficit Has patient had previous pain injection?: Yes Percent improvement in pain since last injection: 25% Conservative treatment options previously tried: Home exercise plan Length of treatment: Longer than 12 weeks Meds Home Medications and Allergies Home Medications ?Medication ?Instructions ?Recorded ?Confirmed ?Type thiamine HCl (vitamin B1) 250 mg 250 mg PO DAILY Neuropathy #90 tabs 10/01/23 10/22/24 Rx tablet azelastine 137 mcg (0.1 %) nasal 1 spray intranasal BID PRN 01/06/24 10/22/24 History spray Breathing Problems oxybutynin chloride 10 mg 10 mg PO DAILY URINARY #90 tabs 01/10/24 10/22/24 Rx tablet,extended release 24 hr ezetimibe 10 mg tablet (Zetia) 10 mg PO DAILY #90 tabs 02/21/24 10/22/24 Rx valsartan 80 mg tablet 80 mg PO DAILY . #90 tabs 04/13/24 10/22/24 Rx tizanidine 4 mg tablet See Rx Instructions .Route 05/06/24 10/22/24 Rx .COMPLEX #30 ea spironolactone 25 mg tablet 25 mg PO DAILY #90 tabs 05/13/24 10/22/24 Rx clotrimazole-betamethasone 1 1 applic topical BID #45 grams 06/02/24 10/22/24 Rx %-0.05 % topical cream alendronate 35 mg tablet 35 mg PO WEEKLY #35 tabs 07/02/24 10/22/24 Rx apixaban 5 mg tablet (Eliquis) 5 mg PO BID ATRIAL FIB #180 tabs 08/04/24 10/22/24 Rx citalopram 20 mg tablet See Rx Instructions .Route 08/11/24 10/22/24 Rx .COMPLEX #90 tabs tramadol 50 mg tablet 50 mg PO TID PRN pain #90 tabs 08/12/24 10/22/24 Rx amoxicillin 500 mg capsule 500 mg PO DAILY 10/06/24 10/22/24 History baclofen 10 mg tablet 10 mg PO TID #42 tabs 10/22/24 Rx New Prescriptions to Start Prescriptions: Kelly Hunter Allergies Allergy/AdvReac Type Severity Reaction Status Date / Time Bczdlds-POV-SgA Reductase AdvReac Severe Verified 10/06/24 14:43 Inhibitor Assessment and Plan *Assessment and plan (1) Right hip pain: Status: Acute Category: Medical Code(s): M25.551 - Pain in right hip (2) Right shoulder pain: Status: Acute Category: Medical Code(s): M25.511 - Pain in right shoulder (3) Thoracic radiculopathy: Status: Acute Category: Medical Code(s): M54.14 - Radiculopathy, thoracic region (4) Degenerative disc disease, thoracic: Status: Acute Category: Medical Code(s): M51.34 - Other intervertebral disc degeneration, thoracic region (5) Degenerative disc disease, lumbar: Status: Chronic Qualifiers: Disc-related pain type: without discogenic back pain or lower extremity pain Qualified Code(s): M51.369 - Other intervertebral disc degeneration, lumbar region without mention of lumbar back pain or lower extremity pain Category: Medical Code(s): M51.369 - Other intervertebral disc degeneration, lumbar region without mention of lumbar back pain or lower extremity pain Plan Due to the patient's recent fall and continuing worsening pain will order x-ray imaging of his right shoulder, low back and right hip to rule out any fractures. I did discuss with the patient due to the still severe pain there at his mid back around his right shoulder blade that does radiate around that I do still believe he would benefit from a thoracic epidural. Risk and benefits were discussed with patient and he would like to proceed forward with this plan of care. Patient states that the trigger points just do not go deep enough to get where the pain is at. I will also put in a physical therapy order to help with his neck shoulder, low back and balance issues. Patient will also be given a 2-week supply of baclofen 10 mg 3 times daily instead of the methocarbamol. Patient agrees with this plan of care. Patient has continued conservative therapy including oral medication, heat ice, topicals, at home stretching exercise for longer than 12 weeks. Patient will be scheduled for a T GILMAR T4-T5 under fluoroscopy. I did also discuss with the patient and his daughter that in future if he still does not get significant relief he may be a candidate of a spinal cord stimulator trial. We will follow-up with this in future Patient has been instructed to contact the clinic with any concerns before the next appointment. Dr. Meza has reviewed this note and agrees with this plan of care. This note was dictated using voice recognition software and make contain errors or omissions. All injections are used with Lidocaine, Bupivacaine and dexamethasone. Occasionally urine drug screen is needed to verify patient's compliance with our office pain contract. This is ordered based off specific treatments related to chronic pain with the potential to abuse certain medications.
--- NOTE | 2024-10-22 15:45 | XR_ITS ---
FINAL REPORT CLINICAL HISTORY: Acute fall low back pain x 5 days ago COMPARISON: None FINDINGS: Three views of the lumbosacral spine were obtained. No fracture is identified. There is mild diffuse degenerative disc disease. Mild facet arthropathy is noted. Alignment is normal. IMPRESSION: No acute bony abnormality. Reviewed, Interpreted and Dictated by Vikc Godoy MD Transcribed by Judit Donohue Authenticated and [facility]
--- NOTE | 2024-10-22 15:45 | XR_ITS ---
FINAL REPORT CLINICAL HISTORY: Acute fall right shoulder pain x 5 days ago COMPARISON: None FINDINGS: Three views of the right shoulder show no evidence of acute displaced fracture or dislocation of the visualized bony architecture. There are moderate degenerative changes of the glenohumeral and acromioclavicular joints. There is osteopenia. IMPRESSION: No acute bony abnormality. Reviewed, Interpreted and Dictated by Vick Godoy MD Transcribed by Judit Donohue Authenticated and [facility]
--- NOTE | 2024-10-22 15:45 | XR_ITS ---
FINAL REPORT CLINICAL HISTORY: Acute fall x 5 days ago COMPARISON: None FINDINGS: RIGHT HIP Two views of the right hip with an AP view of the pelvis demonstrate no acute fracture or dislocation. There are moderate degenerative changes. The visualized bony structures are well aligned. No soft tissue abnormality is seen. IMPRESSION: No acute bony abnormality. Reviewed, Interpreted and Dictated by Vick Godoy MD Transcribed by Judit Donohue Authenticated and [facility]
== END 2024-10-22 23:59 | disposition home or self-care (01) ==
PROVIDERS: PCP Internal Medicine; Visit Provider Nurse Practitioner Family
DX: M25.551 Pain in right hip (principal); M25.511 Pain in right shoulder; M54.14 Radiculopathy, thoracic region; M51.34 Other intervertebral disc degeneration, thoracic region; M51.362 Other intervertebral disc degeneration, lumbar region with discogenic back pain and lower extremity pain; Z79.891 Long term (current) use of opiate analgesic; Z79.899 Other long term (current) drug therapy
CPT/HCPCS: 72100; 73030; 73502; 99212; G0463

== ENCOUNTER 2024-12-01 13:18 | Day surgery (SDC) | payer MEDICARE, OTHER, SELFPAY ==
[2024-12-01 13:36] VITALS: BP 133/72; PULSE 90; RESP 18; O2SAT 100; BMI 25.4
--- NOTE | 2024-12-01 13:56 | PC.NURSE ---
PT INJECTION CX, PROVIDER TO ORDER MRI
--- NOTE | 2024-12-01 14:38 | EXP.PAIN.PRO ---
Procedure Date: 12/01/24 Time: 13:00 Anesthesiologist:: Brian Krishnamurthy CRNA Complications:: None Pre-procedure Diagnosis:: Cervical neck pain. Right shoulder and arm radicular symptoms. Post-procedure Diagnosis:: Same Indications for Procedure:: Patient is a pleasant 79-year-old male who comes our clinic today for a scheduled high thoracic epidural steroid injection. Discussed in detail with the patient regarding symptoms. My recommendation is cervical MRI to further discern pathology in the cervical spine. Patient agrees. We will set this up for him. See him back for follow-up for review of findings. Procedure Details:: None Plan and Disposition:: Patient was discharged without incident.
== END 2024-12-01 13:56 | disposition home or self-care (01) ==
LOC: SC.PAINP 13:20
PROVIDERS: PCP Internal Medicine; Visit Provider Nurse Anesthetist, Certified Registered
DX: M54.2 Cervicalgia (principal); I48.91 Unspecified atrial fibrillation; F32.A Depression, unspecified; I10 Essential (primary) hypertension; Z87.891 Personal history of nicotine dependence; Z88.8 Allergy status to other drugs, medicaments and biological substances; Z79.891 Long term (current) use of opiate analgesic; Z79.01 Long term (current) use of anticoagulants

== ENCOUNTER 2024-12-09 14:11 | Outpatient (CLI) | payer MEDICARE, OTHER, SELFPAY ==
--- OUTSIDE RECORDS SUMMARY | 2024-12-09 14:16 | XMS_ITS | Clinical Summary ---
Author Organization [facility] yste Address [address] [place] [address] Care Team Providers Care Dry Wall Sprayer Name Role Phone Addy Lara MD Primary Care Provider [phone] Social History Tobacco Use Types Packs/Day Years [...] - 1-dose 75+ series) 9 INFLUENZA VACCINE 10/09/2024 COVID-19 Vaccine ( - season) 2024 Insurance [place] [id number] MEDICARE A & B Member Subscriber Plan / Payer (Ef fective 2005-Present) Name:[employer], [place] Member ID:[id number] Relation to Subscriber:Self Name:[employer], [place] Subscriber ID:[id number] Payer ID:[id number] Group ID:Not on file Type:Not on file Address: [address] [place] [address] Care Teams Dry Wall Sprayer Relationship Specialty Start Date End Date Addy Lara MD [address] [facility] [address] [place] [id number] PCP - General Internal Medicine 11/19/15
--- NOTE | 2024-12-09 14:30 | MR_ITS ---
FINAL REPORT CLINICAL HISTORY: neck pain AND STIFFNESS pain radiates down arms hand numbness COMPARISON: 07/06/2022 FINDINGS: Multi planar MR imaging was obtained of the cervical spine. There is abnormal decreased signal throughout the cervical discs. 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 This may represent postoperative change, although changes of fibrous dysplasia or Paget's disease could produce this appearance as well. There is accentuation of the thoracic kyphosis at the cervicothoracic junction. Abnormal signal is present in cervical cord at the C3 level, eccentric to the right, less evident than seen on the prior exam, consistent with localized myelomalacia. C2-C3: There is no evidence of significant disc bulge or protrusion. There is no significant facet hypertrophy. C3-C4: A moderate annular bulge is present with moderate canal stenosis and moderate bilateral neural foraminal narrowing. C4-C5: Endplate hypertrophy is present with moderate to severe bilateral neural foraminal narrowing. C5-C6: There is no evidence of significant disc bulge or protrusion. There is no significant facet hypertrophy. C6-C7: There is no evidence of significant disc bulge or protrusion. There is no significant facet hypertrophy. C7-T1: There is no evidence of significant disc bulge or protrusion. There is no significant facet hypertrophy. 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 The overall appearance is similar to the prior MRI of 07/06/2022. Abnormal signal remains present in the cervical spinal cord at the C3 level, eccentric to the right, although less evident than seen on the previous. The appearance is consistent with localized myelomalacia. Moderate canal stenosis is once again noted at the C3-4 level, along with moderate bilateral neural foraminal narrowing. There is moderate to severe bilateral neural foraminal narrowing at the C4-5 level. Reviewed, Interpreted and Dictated by Jayme Mathur MD Transcribed by Rosalie Otero Authenticated and [facility]
== END 2024-12-09 23:59 | disposition home or self-care (01) ==
LOC: RAD 14:12
PROVIDERS: PCP Internal Medicine; Visit Provider Nurse Anesthetist, Certified Registered
DX: M43.22 Fusion of spine, cervical region (principal); M43.23 Fusion of spine, cervicothoracic region; M48.02 Spinal stenosis, cervical region; M99.71 Connective tissue and disc stenosis of intervertebral foramina of cervical region; R93.7 Abnormal findings on diagnostic imaging of other parts of musculoskeletal system; R90.89 Other abnormal findings on diagnostic imaging of central nervous system
CPT/HCPCS: 72141